=== PATIENT | male | born 1960 | race Caucasian/White ===

== ENCOUNTER 2023-12-31 10:14 | Outpatient (AMB) | payer OTHER, SELFPAY ==
--- NOTE | 2023-12-31 10:25 | A.OFFPC_ITS ---
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 Recently Hospitalized [facility] [employer] Required: No Allergies No Known Allergies Allergy (Verified 12/31/23 10:27) Medication List - Last Reconciled 12/31/23 by Cindy Akers PA-C albuterol sulfate 90 mcg/actuation (Ventolin HFA) inhalation amlodipine 5 mg PO DAILY docusate sodium 100 mg PO BID folic acid 1 mg PO DAILY nicotine 1 patch transdermal DAILY sodium chloride 0.65% (Nasal [place] (sodium chloride)) 2 sprays intranasal QID PRN tiotropium bromide (Spiriva with HandiHaler) 1 cap inhalation DAILY Tobacco use date assessed: 12/31/23 Dental Screening Dental Screen Date: 12/31/23 Did you have a dental visit in the last 12 months?: No Did you have a dental problem in the last 6 months where you did not have access to dental care?: No Was dental information given to patient?: Yes 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 His last physical was more than 15 years ago. He states that he has not had a PCP in many years and recently had to go to the hospital at the end of November due to a significant nosebleed. -He states that he was drinking heavily daily for the last 5 years. He states prior to admission in 5-10 drinks day including hard alcohol. He states that since the hospitalization he is quit drinking. He did not go into any withd migue. His last drink was over a month ago. He does not feel any cravings for this but struggles with cravings for cigarettes. Psych: See above. He does also report a mild depression that he has had for years. Does not wish to see any therapist but states that this would make him hesitant to try anything like Chantix. Denies any SI/HI. He has never been hospitalized for his mental health. ENT: He is following with ENT after he was hospitalized for a bilateral nosebleed and needed to have a rhino rocket placed and ultimately needed bilateral IMAX artery embolization. He required 6 units of blood following a significant nosebleed at the end of November. He states that the nosebleed started 4 days prior to presentation to the hospital. He initially went [facility] and then was transferred to [facility] after being unable to control the nosebleed where his hemoglobin was found to be 5.6. He was admitted to [facility] on 11/24/2023, and discharged on 12/01/2023. Generalized: has been fatigued since hospitalization but somewhat getting better. He states that he wonders if it is related to anemia. He states that if he is walking around he feels fatigued. He gets about 4 hrs of consistent sleep but then will wake up and goes back to bed. He does sometimes wake himself up from him snoring. PULM: Uses albuterol and Spiriva. While he was hospitalized he was given nebulizers and prednisone for the wheezing and rhonchi on exam. He was discharged with Spiriva and the albuterol. Currently on Nicoderm patches. He states that this was a recent diagnosis. He has never had PFTs, he is not in lung cancer screening program. He is still smoking 1/2 a pack a day. He started smoking about 50 years ago and was smoking 1.5 packs a day. He states that his brother was dx with lung cancer 2 years ago. No change in cough, wheezing. No weight loss. No hemoptysis. CV: Dx with htn in the hospital and discharged with amlodipine 5 mg. His bp is elevated today at 144/88. He is compliant and tolerant of amlodipine. He states he does get sob with exertion and states that he sometimes get chest pain with exertion. He states both of these sx get better with rest. No dizziness. Last episode of cp was 1 month ago. He has noticed this more frequently in the last couple years. Musculoskeletal: He states he has hip and low back pain x years. He states with walking his legs get weak. He states with walks he gets weakness in his upper legs going down to his feet. He states it feels like numbness and tingling in his legs. He states that when he is walking around he loses strength in the le gs. No bowel or bladder dysfunction. -His right hand has been painful and sti ff for the past year. He states the finger tips are numb. He denies any weakness. He is right hand domninant. GI: Since hospitalization he has been constipated. He has been using colace. No abdominal pain or blood in the stool. 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 Colonoscopy: Never had PSA: never had Family hx: Brother has lung cancer at age 63. Mother breast ca around age 60. [facility] Medical History (Updated 12/31/23 @ 12:29 by Cindy Akers PA-C) Mild recurrent major depression CORNEJO (dyspnea on exertion) Bilateral leg paresthesia Paresthesias in right hand Right hand pain Proximal leg weakness Lumbar pain with radiation down both legs Bilateral hip pain Alcohol use disorder, mild, in early remission, abuse RADHA (iron deficiency anemia) Recurrent epistaxis COPD (chronic obstructive pulmonary disease) Tobacco abuse Hypertension, essential, benign Surgical History (Updated 12/31/23 @ 12:04 by Susan Garcia CMA) History of ankle surgery Family History (Updated 12/31/23 @ 11:17 by Susan Garcia CMA) Mother Heart disease Father Stroke Paternal Grandfather Stroke Social History Housing: House Housing Other:: rents Patient Tobacco Use Status: Current everyday Tobacco user Years Smoked: 50 e-Cigarette/Vaping Use: Never Used Second Hand Smoke Exposure: Yes (past ) service: No Current occupational status: employed 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 1. Little interest or pleasure in doing things: not at all 2. Feeling down, depressed, or hopeless: not at all 3. Trouble falling or staying asleep, or sleeping too much: several days 4. Feeling tired or having little energy: several days 5. Poor appetite or overeating: several days 6. Feeling bad about yourself - or that you are a failure or have let yourself or your family down: several days 7. Trouble concentrating on things, such as reading the newspaper or watching television: several days 8. Moving or speaking so slowly that other people could have noticed. Or the opposite - being so fidgety or restless that you have been moving around a lot more than usual: not at all 9. Thoughts that you would be better off or of hurting yourself in some way: not at all Total score: 5 Depression Screening Interpretation: Positive Depression Screening Follow-up: Existing condition, New Medication prescribed and Follow-up Visit Requested Depression Screening Done: Yes 16935 - PHQ-9 Billing: Yes Source: Developed by Drs. Alexis Alexandra, Josefina Holt, Nolan Galicia and colleagues, with an educational vinod from [employer]. Thrive Questionnaire Date Thrive assessed: 12/31/23 I am a: Patient What is your living situation today?: I have a steady place to live Within the past 12 months, did the food you bought not last and you didn't have the money to get more?: Never true Within the past 12 months, did you worry whether your food would run out before you got money to buy more?: Never true Do you have trouble paying for medicines?: No Do you have trouble getting transportation to medical appointments?: No Do you have trouble paying your heating and electricity bill?: No Do you have trouble taking care of your child, family member or friend?: No Do you have trouble with day-to-day activities such as bathing, preparing meals, shopping, managing finances, etc.?: No Are you currently unemployed and looking for a job?: No Are you interested in more education?: No Please select the resources that you would like help with: None Currently or been in a relationship where the following occur: no concerns reported THRIVE Score: 0 AUDIT C Alcohol Use Questionnaire (AUDIT-C) 1. How often do you have a drink containing alcohol?: Monthly or less 2. How many drinks containing alcohol do you have on a typical day when you are drinking?: 1 or 2 3. How often do you have six or more drinks on one occasion?: Never Total Score: 1 Score Reviewed/Action Taken: Yes STEPHAN-7 AMB Questionnaire STEPHAN-7 Date STEPHAN - 7 assessed: 12/31/23 Feeling nervous, anxious, or on edge: 0 = Not at all Not being able to stop or control worryin = Not at all Worrying too much about different things: 0 = Not at all Trouble relaxin = Not at all Being so restless that it is hard to sit still: 0 = Not at all Becoming easily annoyed or irritable: 0 = Not at all Feeling afraid as if something awful might happen: 0 = Not at all Total STEPHAN-7 score (0-4 normal; 5-9 mild; 10-14 moderate; 15-21 severe): 0 Source: Developed by Drs. Alexis Alexandra, Josefina Holt, Nolan Galicia and colleagues, with an educational vinod from [employer]. STEPHAN-7 Assessment Billing STEPHAN-7 Assessment Tool: STEPHAN-7 Assessment 62581 Physical exam (Primary Care) Vital Signs: Last Vital Signs Temp 98.8 F 12/31/23 10:39 Pulse 96 12/31/23 10:39 Resp 18 12/31/23 10:39 BP 144/88 H 12/31/23 10:45 Pulse Ox 96 12/31/23 10:39 Oxygen Delivery Method Room Air 12/31/23 10:39 BMI result Body Mass Index 25.9 Tobacco/Smoking Status: Tobacco use Status Tobacco use date assessed 12/31/23 12/31/23 10:42 Patient Tobacco Use Status Current everyday Tobacco 12/31/23 10:42 e-Cigarette/Vaping Use Never Used 12/31/23 10:42 Are you ready to quit: Yes Tobacco cessation counseling provided: Yes Items discussed: Nicotine replacement and Other (wellbutrin and chantix) Relapse Prevention: discussed the importance of a supportive environment, discussed negative mood or depression after quitting, weight gain after smoking is common and discussed dietary, exercise and/or lifestyle changes Number of minutes spent counselin CPT code: 57657 - 4-10 Minutes PHQ-9: PHQ-9 Score PHQ-9: Total score 5 12/31/23 10:54 Depression Screening Interpretation: Positive Depression Screening Follow-up: Existing condition, New Medication prescribed and Follow-up Visit Requested Thrive Assessment: Date of Thrive Assessment Date Thrive assessed 12/31/23 12/31/23 10:51 Currently or been in a relationship where the following occur: no concerns reported Const Orientation/consciousness: patient oriented x3 HENMT Ears: hearing grossly normal bilaterally and TM's normal bilaterally General nose exam: Normal nasal mucous membranes and turbinates present Face and sinus: Yes sinuses nontender Mouth: Normal oral and palatal mucosa present Neck Thyroid: Thyroid normal Lymphatic: no lymphadenopathy noted Resp Effort & Inspection: normal respiratory effort and able to speak in complete sentences Auscultation: rhonchi throughout Cardio Rate: regular rate Rhythm: regular rhythm Heart sounds: S1 normal heart sound present and S2 normal heart sound present Peripheral pulses: Peripheral pulses 2+ throughout GI Inspection: Yes normal to inspection Palpation (GI): Soft to palpation and Other GI palpation findings present (nontender, no cva tenderness) Auscultation: normoactive bowel sounds Back/Spine/Pelvis Thoracic/Lumbar Spine: thoracic and lumbar spine normal to inspection, straight leg raise negative bilaterally and paraspinal muscle tenderness Skin General skin exam: no rashes or lesions noted Neuro General: patient oriented x3, gait normal, no focal motor deficits and CN's II- XI intact bilaterally Motor exam (neuro): 5/5 motor strength present throughout Sensory Exam: double simultaneous stimulation for sensation normal Extrem General: Yes normal to inspection and Yes full ROM Right upper extremity: full ROM, normal capillary refill and Extremity exam: right hand (Full range of motion. Nontender.) Details: normal to inspection and neurosensory exam abnormal (Reports decreased sensation to touch over the distal aspects of the right fingers. Left side WNL) Psych Thought content: Normal thought content present Insight: Good insight present (Psych) Judgement: Good judgement present (Psych) Office Procedures EKG Details: EKG today in the office is normal sinus rhythm at a rate of 82 beats per minute with nonspecific STT wave abnormalities. No significant change from [facility] EKG other than sinus rhythm is now noted. EKGs interpreted by myself. [id number], Complete Results Reviewed Results Reviewed: CBC consistent with a mild leukocytosis and persistent anemia with last H and H at 7.6 and 22.2. EKG hospital was sinus tachycardia at a rate of 100 and 10 beats per minute with nonspecific STT wave abnormalities. EKG was interpreted by Cardiology and noted to have no significant change when compared to a previous EKG in 2022. Chest x-ray: Impression: One. Minor atelectasis or scarring of the left costophrenic angle. No other evidence of acute cardiopulmonary disease including no evidence of pneumonia. 2. Calcific tendinopathy of bursitis of left shoulder. Assessment and Plan Assessment & Plan (1) Hypertension, essential, benign: Code(s): I10 - Essential (primary) hypertension Plan: Continue amlodipine. We will start metoprolol. Discussed risks and benefits an d adverse effects such as dizziness. (2) Chest pain: Code(s): R07.9 - Chest pain, unspecified Qualifiers: Chest pain type: unspecified Qualified Code(s): R07.9 - Chest pain, unspecified Plan: EKG done today in the office. EKG reviewed from hospital and chest x-ray. Stress test ordered. Warning signs of chest pain that would require emergent medical treatment were discussed. (3) RADHA (iron deficiency anemia): Code(s): D50.9 - Iron deficiency anemia, unspecified Qualifiers: Iron deficiency anemia type: unspecified iron deficiency Qualified Code(s): D50.9 - Iron deficiency anemia, unspecified Plan: We will recheck CBC and iron. (4) Recurrent epistaxis: Code(s): R04.0 - Epistaxis Plan: Has followed with ENT and no nosebleed since hospitalization. (5) COPD (chronic obstructive pulmonary disease): Code(s): J44.9 - Chronic obstructive pulmonary disease, unspecified Qualifiers: COPD type: unspecified COPD Qualified Code(s): J44.9 - Chronic obstructive pulmonary disease, unspecified Plan: We will refill Spiriva and albuterol. Chest x-ray from hospitalization reviewed. Strongly encouraged smoking cessation. PFTs ordered. (6) Tobacco abuse: Code(s): Z72.0 - Tobacco use Plan: Discussed the family history of lung cancer. Referral to thoracic surgery for low-dose chest CT screening. We will start bupropion. Discussed risks and benefits and adverse effects of this medication. One-month follow-up. Sooner if needed. (7) Mild recurrent major depression: Code(s): F33.0 - Major depressive disorder, recurrent, mild Plan: see above (8) Alcohol use disorder, mild, in early remission, abuse: Code(s): F10.11 - Alcohol abuse, in remission Plan: Congratulated on sobriety. Labs ordered. Does not need help with this per patient. (9) Bilateral hip pain: Code(s): M25.551 - Pain in right hip; M25.552 - Pain in left hip Plan: X-ray ordered (10) Lumbar pain with radiation down both legs: Code(s): M54.50 - Low back pain, unspecified; M79.604 - Pain in right leg; M79.605 - Pain in left leg Plan: X-ray and arthritis labs ordered. (11) Proximal leg weakness: Code(s): R29.898 - Other symptoms and signs involving the musculoskeletal system Plan: Strength and sensation intact today on exam. Imaging of the back ordered. Labs ordered. (12) Right hand pain: Code(s): M79.641 - Pain in right hand Plan: Full range of motion and no tenderness today on exam. X-ray ordered. (13) Paresthesias in right hand: Code(s): R20.2 - Paresthesia of skin Plan: Reduced sensation on exam. Labs ordered. We will follow up pending test results and at follow up discuss possibility of EMG. We discussed this today but he wants to hold off on this. (14) Bilateral leg paresthesia: Code(s): R20.2 - Paresthesia of skin Plan: See above. (15) CORNEJO (dyspnea on exertion): Code(s): R06.09 - Other forms of dyspnea Plan: See above. (16) Hospital discharge follow-up: Code(s): Z09 - Encounter for follow-up examination after completed treatment for conditions other than malignant neoplasm Plan: Medications reconciled. Labs and imaging from hospitalization reviewed. The 156 pages of documentation from [facility] was reviewed today. Plan Follow up in 1 month. Sooner if needed. PSA ordered in addition to the other labs. Referral to GI for a colonoscopy was placed. Patient understands and agrees with this plan. Orders: Orders AMB EKG-In Office Today I10 - Essential (primary) hypertension, R07.9 - Chest pain, unspecified Complete Blood Count Auto Diff Today D50.9 - Iron deficiency anemia, unspecified, F10.11 - Alcohol abuse, in remission, I10 - Essential (primary) hypertension, J44.9 - Chronic obstructive pulmonary disease, unspecified, R06.09 - Other forms of dyspnea, R20.2 - Paresthesia of skin, R29.898 - Other symptoms and signs involving the musculoskeletal system, Z72.0 - Tobacco use Comprehensive [place]. Panel Fast Today D50.9 - Iron deficiency anemia, unspecified, F10.11 - Alcohol abuse, in remission, I10 - Essential (primary) hypertension, J44.9 - Chronic obstructive pulmonary disease, unspecified, R06.09 - Other forms of dyspnea, R20.2 - Paresthesia of skin, R29.898 - Other symptoms and signs involving the musculoskeletal system, Z72.0 - Tobacco use Ferritin Today D50.9 - Iron deficiency anemia, unspecified, F10.11 - Alcohol abuse, in remission, I10 - Essential (primary) hypertension, J44.9 - Chronic obstructive pulmonary disease, unspecified, R06.09 - Other forms of dyspnea, R20.2 - Paresthesia of skin, R29.898 - Other symptoms and signs involving the musculoskeletal system, Z72.0 - Tobacco use Lipid Panel Today D50.9 - Iron deficiency anemia, unspecified, F10.11 - Alcohol abuse, in remission, I10 - Essential (primary) hypertension, J44.9 - Chronic obstructive pulmonary disease, unspecified, R06.09 - Other forms of dyspnea, R20.2 - Paresthesia of skin, R29.898 - Other symptoms and signs involving the musculoskeletal system, Z72.0 - Tobacco use TSH reflex Free T4 Today D50.9 - Iron deficiency anemia, unspecified, F10.11 - Alcohol abuse, in remission, I10 - Essential (primary) hypertension, J44.9 - Chronic obstructive pulmonary disease, unspecified, R06.09 - Other forms of dyspnea, R20.2 - Paresthesia of skin, R29.898 - Other symptoms and signs involving the musculoskeletal system, Z72.0 - Tobacco use Vitamin D 1,25 dihydroxy Today D50.9 - Iron deficiency anemia, unspecified, F10.11 - Alcohol abuse, in remission, I10 - Essential (primary) hypertension, J44.9 - Chronic obstructive pulmonary disease, unspecified, R06.09 - Other forms of dyspnea, R20.2 - Paresthesia of skin, R29.898 - Other symptoms and signs involving the musculoskeletal system, Z72.0 - Tobacco use UA CC w/rflx Micro + Cult Today D50.9 - Iron deficiency anemia, unspecified, F10.11 - Alcohol abuse, in remission, I10 - Essential (primary) hypertension, J44.9 - Chronic obstructive pulmonary disease, unspecified, R06.09 - Other forms of dyspnea, R20.2 - Paresthesia of skin, R29.898 - Other symptoms and signs involving the musculoskeletal system, Z72.0 - Tobacco use Rheumatoid Factor Today D50.9 - Iron deficiency anemia, unspecified, F10.11 - Alcohol abuse, in remission, I10 - Essential (primary) hypertension, J44.9 - Chronic obstructive pulmonary disease, unspecified, R06.09 - Other forms of dyspnea, R20.2 - Paresthesia of skin, R29.898 - Other symptoms and signs involving the musculoskeletal system, Z72.0 - Tobacco use XR hand RT min 3V Today D50.9 - Iron deficiency anemia, unspecified, F10.11 - Alcohol abuse, in remission, I10 - Essential (primary) hypertension, J44.9 - Chronic obstructive pulmonary disease, unspecified, M79.641 - Pain in right hand, R06.09 - Other forms of dyspnea, R20.2 - Paresthesia of skin, R29.898 - Other symptoms and signs involving the musculoskeletal system, Z72.0 - Tobacco use XR hips JONO min 3V Today D50.9 - Iron deficiency anemia, unspecified, F10.11 - Alcohol abuse, in remission, I10 - Essential (primary) hypertension, J44.9 - Chronic obstructive pulmonary disease, unspecified, M25.551 - Pain in right hip, M25.552 - Pain in left hip, R06.09 - Other forms of dyspnea, R20.2 - Paresthesia of skin, R29.898 - Other symptoms and signs involving the musculoskeletal system, Z72.0 - Tobacco use XR lumbar spine 2-3V Today D50.9 - Iron deficiency anemia, unspecified, F10.11 - Alcohol abuse, in remission, I10 - Essential (primary) hypertension, J44.9 - Chronic obstructive pulmonary disease, unspecified, M54.50 - Low back pain, unspecified, M79.604 - Pain in right leg, M79.605 - Pain in left leg, R06.09 - Other forms of dyspnea, R20.2 - Paresthesia of skin, R29.898 - Other symptoms and signs involving the musculoskeletal system, Z72.0 - Tobacco use PSA, Ultra Sensitive Today D50.9 - Iron deficiency anemia, unspecified, F10.11 - Alcohol abuse, in remission, I10 - Essential (primary) hypertension, J44.9 - Chronic obstructive pulmonary disease, unspecified, R06.09 - Other forms of dyspnea, R20.2 - Paresthesia of skin, R29.898 - Other symptoms and signs involving the musculoskeletal system, Z72.0 - Tobacco use PFT pulmonary function test Today IRON PROFILE Today D50.9 - Iron deficiency anemia, unspecified, F10.11 - Alcohol abuse, in remission, I10 - Essential (primary) hypertension, J44.9 - Chronic obstructive pulmonary disease, unspecified, R06.09 - Other forms of dyspnea, R20.2 - Paresthesia of skin, R29.898 - Other symptoms and signs involving the musculoskeletal system, Z72.0 - Tobacco use Vitamin B12 and Folate Today D50.9 - Iron deficiency anemia, unspecified, F10. 11 - Alcohol abuse, in remission, I10 - Essential (primary) hypertension, J44.9 - Chronic obstructive pulmonary disease, unspecified, R06.09 - Other forms of dyspnea, R20.2 - Paresthesia of skin, R29.898 - Other symptoms and signs involving the musculoskeletal system, Z72.0 - Tobacco use CA stress test Today D50.9 - Iron deficiency anemia, unspecified, F10.11 - Alcohol abuse, in remission, I10 - Essential (primary) hypertension, J44.9 - Chronic obstructive pulmonary disease, unspecified, R06.09 - Other forms of dyspnea, R07.9 - Chest pain, unspecified, R20.2 - Paresthesia of skin, R29.898 - Other symptoms and signs involving the musculoskeletal system, Z72.0 - Tobacco use Uric Acid Today D50.9 - Iron deficiency anemia, unspecified, F10.11 - Alcohol abuse, in remission, I10 - Essential (primary) hypertension, J44.9 - Chronic obstructive pulmonary disease, unspecified, R06.09 - Other forms of dyspnea, R20.2 - Paresthesia of skin, R29.898 - Other symptoms and signs involving the musculoskeletal system, Z72.0 - Tobacco use C Reactive Protein Today D50.9 - Iron deficiency anemia, unspecified, F10.11 - Alcohol abuse, in remission, I10 - Essential (primary) hypertension, J44.9 - Chronic obstructive pulmonary disease, unspecified, R06.09 - Other forms of dyspnea, R20.2 - Paresthesia of skin, R29.898 - Other symptoms and signs involving the musculoskeletal system, Z72.0 - Tobacco use Erythrocyte Sedimentation Rate Today D50.9 - Iron deficiency anemia, unspecified, F10.11 - Alcohol abuse, in remission, I10 - Essential (primary) hypertension, J44.9 - Chronic obstructive pulmonary disease, unspecified, R06.09 - Other forms of dyspnea, R20.2 - Paresthesia of skin, R29.898 - Other symptoms and signs involving the musculoskeletal system, Z72.0 - Tobacco use ANDERS Reflex Titer and Pattern Today D50.9 - Iron deficiency anemia, unspecified, F10.11 - Alcohol abuse, in remission, I10 - Essential (primary) hypertension, J44.9 - Chronic obstructive pulmonary disease, unspecified, R06.09 - Other forms of dyspnea, R20.2 - Paresthesia of skin, R29.898 - Other symptoms and signs involving the musculoskeletal system, Z72.0 - Tobacco use Lyme IgG/IgM w/reflex to WB Today D50.9 - Iron deficiency anemia, unspecified, F10.11 - Alcohol abuse, in remission, I10 - Essential (primary) hypertension, J44.9 - Chronic obstructive pulmonary disease, unspecified, R06.09 - Other forms of dyspnea, R20.2 - Paresthesia of skin, R29.898 - Other symptoms and signs involving the musculoskeletal system, Z72.0 - Tobacco use RT home sleep study Today R06.83 - Snoring, R53.83 - Other fatigue Referrals Gastroenterology Referral D50.9 - Iron deficiency anemia, unspecified, F10.11 - Alcohol abuse, in remission, I10 - Essential (primary) hypertension, J44.9 - Chronic obstructive pulmonary disease, unspecified, R06.09 - Other forms of dyspnea, R20.2 - Paresthesia of skin, R29.898 - Other symptoms and signs involving the musculoskeletal system, Z12.11 - Encounter for screening for malignant neoplasm of colon, Z72.0 - Tobacco use Thoracic Surgery Referral D50.9 - Iron deficiency anemia, unspecified, I10 - Essential (primary) hypertension, J44.9 - Chronic obstructive pulmonary disease, unspecified, R06.09 - Other forms of dyspnea, Z72.0 - Tobacco use Medications: New tiotropium bromide (Spiriva with HandiHaler) 1 cap inhalation DAILY 90 inhalations 3RF metoprolol succinate ER 25 mg PO DAILY 90 tabs 0RF bupropion HCl administer 6 hours apart 75 mg PO BID 60 tabs 2RF amlodipine 5 mg PO DAILY 90 tabs 3RF folic acid 1 mg PO DAILY 90 tabs 3RF Coding Level of Care Code New Pt Level 5 (10165) Complex EM visit Add On G2211 Diagnoses Hypertension, essential, benign I10 Chest pain, unspecified type R07.9 Chest pain type: unspecified Iron deficiency anemia, unspecified iron deficiency anemia type D50.9 Iron deficiency anemia type: unspecified iron deficiency Recurrent epistaxis R04.0 Chronic obstructive pulmonary disease, unspecified COPD type J44.9 COPD type: unspecified COPD Tobacco abuse Z72.0 Mild recurrent major depression F33.0 Alcohol use disorder, mild, in early remission, abuse F10.11 Bilateral hip pain M25.551; M25.552 Lumbar pain with radiation down both legs M54.50; M79.604; M79.605 Proximal leg weakness R29.898 Right hand pain M79.641 Paresthesias in right hand R20.2 Bilateral leg paresthesia R20.2 CORNEJO (dyspnea on exertion) R06.09 Hospital discharge follow-up Z09 CPT Codes EKG - CPT: 00684-[id number], Complete ([id number]) Additional Codes STEPHAN-7 Assessment Billing - STEPHAN-7 Assessment Tool: STEPHAN-7 Assessment [id number] ([id number]) Vital Signs *Quality* - CPT code: 98336 - 4-10 Minutes ([id number])
[2023-12-31 10:39] VITALS: BP 158/78; PULSE 96; RESP 18; TEMP 37.1; O2SAT 96; BMI 25.9
[2023-12-31 10:45] VITALS: BP 144/88
== END 2023-12-31 12:34 | disposition home or self-care (01) ==
PROVIDERS: PCP Family Medicine; Visit Provider Physician Assistant
DX: R07.9 Chest pain, unspecified (principal); F17.210 Nicotine dependence, cigarettes, uncomplicated
CPT/HCPCS: 93000; 99204; 99406; G2211

== ENCOUNTER 2024-01-04 10:09 | Outpatient (REF) | payer OTHER, SELFPAY ==
--- NOTE | ~2024-01-04 | XR_ITS ---
EXAMINATION: XR BILATERAL HIPS CLINICAL INFORMATION: Pain in right hip COMPARISON: None available. TECHNIQUE: AP and frog leg lateral views of each hip were obtained. FINDINGS: No fracture. Hip joint spaces are maintained. Alignment is anatomic. There are several calcific densities adjacent to the right greater trochanter which can be seen with gluteal tendinosis. Calcification of the arterial veins is noted consistent with atherosclerotic disease. XR/XR hips JONO min 3V IMPRESSION: No bony abnormality.
--- NOTE | ~2024-01-04 | XR_ITS ---
EXAMINATION: XR HAND, RIGHT CLINICAL INFORMATION: Pain in right hand COMPARISON: None available. TECHNIQUE: PA, lateral, and oblique views of the right hand. FINDINGS: The bones are intact. No fracture. Alignment is anatomic. No significant joint space narrowing. No erosions or soft tissue calcifications. XR/XR hand RT min 3V IMPRESSION: No significant bony abnormality.
--- NOTE | ~2024-01-04 | XR_ITS ---
EXAMINATION: XR LUMBOSACRAL SPINE CLINICAL INFORMATION: Low back pain, unspecified COMPARISON: None available. TECHNIQUE: Three views of the lumbosacral spine. FINDINGS: There 5 nonrib-bearing lumbar-type vertebral bodies. The height of vertebral bodies is well-maintained. There is slight curve of the lumbar spine, convex left. There is marked disc space narrowing L3-L4 and L5-S1. There there is moderate to marked disc space narrowing at L2-L3 and L4-L5. Anterior marginal osteophytes at all lumbar levels. There is straightening of the usual lumbar lordosis which can be seen with muscle spasm. There is mild retrolisthesis of L2 with respect to L3. There is multilevel degenerative facet joint disease, most pronounced at L5-S1. XR/XR lumbar spine 2-3V IMPRESSION: 1. Muscle spasm. 2. Multilevel degenerative disc disease and degenerative facet joint disease. 3. Mild retrolisthesis of L2 with respect to L3.
[2024-01-04 10:26] LABS: MANUAL DIFF FLAG NO
[2024-01-04 10:42] LABS: Basophils Absolute Auto 0.1 X10*3/uL (0.0-0.2); Basophils Percent Auto 0.5 % (0-2); Eosinophils Absolute Auto 0.4 X10*3/uL (0.0-0.4); Eosinophils Percent Auto 3.6 % (0-4); Hematocrit 35.3 % (42.0-52.0); Hemoglobin 11.8 g/dl (14.0-18.0); Imm Gran Abs Auto 0.04 X10*3/uL (0.00-0.03); Imm Gran Pct Auto 0.4 % (0.0-0.4); Lymphocytes Percent Auto 18.7 % (20-40); Mean Corpuscular HGB Conc 33.4 g/dl (31.0-36.0); Mean Corpuscular Volume 98.6 fL (80.0-98.0); Mean Platelet Volume 9.7 fL (9.4-12.4); Monocytes Absolute Auto 0.9 X10*3/uL (0.1-1.2); Monocytes Percent Auto 8.9 % (2-11); Neutrophils Absolute Auto 7.1 x10*3/uL (2.0-8.3); Neutrophils Percent Auto 67.9 % (45-73); Platelet Count 302 X10*3/uL (160-400); Red Blood Count 3.58 X10*6/uL (4.60-5.80); Red Cell Distribution Width 14.9 % (11.0-16.0); White Blood Count 10.5 X10*3/uL (4.8-10.8)
[2024-01-04 11:19] LABS: Erythrocyte Sedimentation Rate 14 MM/HR (0-15)
[2024-01-04 11:24] LABS: Rheumatoid Factor < 13.0 IU/mL (<15.0)
[2024-01-04 11:29] LABS: Alanine Aminotransferase 13 U/L (0-40); Albumin Level 4.1 g/dL (3.5-5.0); Alkaline Phosphatase 84 U/L (39-117); Anion Gap 13 (12-20); Aspartate Amino Transferase 16 U/L (5-37); Bilirubin Total 0.3 mg/dL (0.0-1.0); Blood Urea Nitrogen 19 mg/dL (9-16); C Reactive Protein 0.11 mg/dL (< or = 0.50); Calcium 9.8 mg/dL (8.4-10.2); Carbon Dioxide 27 mmol/L (22-29); Chloride 100 mmol/L (96-108); Cholesterol 220 mg/dL (<200); Estimated Glomerular Filt Rate > 60; Glucose Fasting 102 mg/dL (60-99); HDL Cholesterol 86 mg/dL (>40); Iron 50 mcg/dL (45-160); LDL Cholesterol Calculated 107 mg/dL (<100); Percent Iron Saturation 14 % (15-50); Sodium 136 mmol/L (135-145); Total Iron Binding Capacity 354 mcg/dL (228-428); Total Protein 6.9 g/dL (6.5-8.0); Triglycerides 137 mg/dL (<150); Unsaturated Iron Binding 304 ug/dL; Uric Acid 5.3 mg/dL (3.4-7.0)
[2024-01-04 11:47] LABS: Ferritin 49 ng/mL (20-250)
[2024-01-04 11:54] LABS: Folate 19.1 ng/mL (> or = 4.0); Vitamin B12 929 pg/mL (200-900)
[2024-01-04 13:56] LABS: Appearance Urine Clear; Color Urine Yellow; Glucose Urine UA Negative (Negative); Leukocyte Esterase Urine Negative (Negative); Nitrite Urine Negative (Negative); Specific Gravity - Urine <= 1.005 (1.005-1.025); Urine Blood Negative (Negative); Urine Ketones Negative (Negative); Urine Protein Negative (Neg-Trace)
[2024-01-07 14:28] LABS: Anti Nuclear Antibody Pattern Nuclear, Homogeneous; Anti Nuclear Antibody Screen POSITIVE (NEGATIVE); Anti Nuclear Antibody Titer 1:40 titer
[2024-01-07 17:38] LABS: Lyme Abs Screen <0.90 index
[2024-01-08 22:13] LABS: PSA, Ultra Sensitive 0.75 ng/mL
[2024-01-09 14:19] LABS: VITAMIN D (1,25 OH) D3 37 pg/mL; Vit D (1,25-Dihydroxy) Total 37 pg/mL (18-72); Vitamin D (1,25 OH) D2 <8 pg/mL
== END 2024-01-04 10:10 | disposition home or self-care (01) ==
LOC: HO.LAB 10:09
PROVIDERS: PCP Family Medicine; Visit Provider Physician Assistant
DX: R06.09 Other forms of dyspnea (principal); R20.2 Paresthesia of skin; R29.898 Other symptoms and signs involving the musculoskeletal system; F10.11 Alcohol abuse, in remission; D50.9 Iron deficiency anemia, unspecified; J44.9 Chronic obstructive pulmonary disease, unspecified; Z72.0 Tobacco use; I10 Essential (primary) hypertension; M79.641 Pain in right hand; M54.50 Low back pain, unspecified; M79.604 Pain in right leg; M79.605 Pain in left leg; M25.551 Pain in right hip; M25.552 Pain in left hip
CPT/HCPCS: 36415; 72100; 73130; 73522; 80053; 80061; 81003; 82607; 82652; 82728; 82746; 83540; 84153; 84443; 84550; 85025; 85652; 86038; 86039; 86140; 86431; 86617; 86618

== ENCOUNTER → 2024-01-11 08:51 | Outpatient (REF) | payer OTHER, SELFPAY ==
--- NOTE | 2024-01-11 08:54 | CA_ITS ---
Acquisition Time: 2024-01-11 09:09:13 Total Exercise Time: 00:06:12 Test Indications: Dyspnea Medications: AMLODIPINE ALBUTEROL SPIRIVA METOPROLOL Protocol: HARLEEN Max HR: 130 BPM 82% of Pred: 157 BPM Max BP: 148/076 mmHG Max Work Load: 7.2 METS Exercise stress test exercise 6 in 12 sec of Harleen protocol achieivng 83% MPHR, with mild to moderate SOB, no chest pains, with normotensive response to exercise, with borderline suboptimal heart rate without EJG chnages at achieved workload. Test reviewed with Dr. Alberto If further testing is required pharmacological stress test would be reccomended. Referred By: Cindy Akers Overread By: Shanice Hawkins
== END ==
LOC: HO.CARD 08:51
PROVIDERS: PCP Family Medicine; Visit Provider Physician Assistant
DX: R07.9 Chest pain, unspecified (principal); R06.09 Other forms of dyspnea; I10 Essential (primary) hypertension; R20.2 Paresthesia of skin; Z72.0 Tobacco use
CPT/HCPCS: 93017

== ENCOUNTER → 2024-01-11 08:54 | Outpatient (BNV) | payer OTHER, SELFPAY | PROVIDERS: PCP Family Medicine; Visit Provider Nurse Practitioner | DX: R06.02 Shortness of breath (principal) | CPT/HCPCS: 93016; 93018 ==

== ENCOUNTER 2024-01-11 14:17 | Outpatient (AMB) | payer OTHER, SELFPAY ==
--- NOTE | 2024-01-11 14:34 | MHC.PC.OV ---
Vital Signs 01/11/24 14:35 Height 5 ft 6 in Weight 160 lb 6 oz BMI 25.9 BP 134/89 Blood Pressure Location Lt brachial Position Sitting Pulse 75 Pulse Source Pulse Oximeter Pulse Oximetry (%) 96 Oxygen Delivery Method Room Air Intake Visit Reasons: worsening leg weakness Intake Note: Patient is here with worsening leg weakness he states it's been getting more frequent. Allergies No Known Allergies Allergy (Verified 01/11/24 14:40) Tobacco use date assessed: 01/11/24 Dental Screening Dental Screen Date: 01/11/24 Did you have a dental visit in the last 12 months?: Yes Did you have a dental problem in the last 6 months where you did not have access to dental care?: No Was dental information given to patient?: Patient has dentist HPI worsening leg weakness HPI Details Patient?presents?with?worsening?lower?extremity?weakness. X-rays?show?significant?degenerative?disc?disease?and?retrolisthesis Lab?work?is?rather?unremarkable?regarding?his?symptoms. Has?low?back?pain?and?hip?pain?which?radiates?down?legs?bilaterally. Also?has?right?hand?pain?with?some?right?hand?swelling.??No?left?hand?swelling. 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 X-ray?of?his?hand?did?not?show?any?bony?abnormality?or?joint?space?problems. [facility] Medical History (Updated 01/11/24 @ 15:28 by Cuba Bell MD) Positive ANDERS (antinuclear antibody) Polyarthralgia Mild recurrent major depression CORNEJO (dyspnea on exertion) Bilateral leg paresthesia Paresthesias in right hand Right hand pain Proximal leg weakness Lumbar pain with radiation down both legs Bilateral hip pain Alcohol use disorder, mild, in early remission, abuse RADHA (iron deficiency anemia) Recurrent epistaxis COPD (chronic obstructive pulmonary disease) Tobacco abuse Hypertension, essential, benign Surgical History (Updated 12/31/23 @ 12:04 by Susan Garcia CMA) History of ankle surgery Family History (Updated 12/31/23 @ 11:17 by Susan Garcia CMA) Mother Heart disease Father Stroke Paternal Grandfather Stroke Social History Housing: House Housing Other:: rents Patient Tobacco Use Status: Current everyday Tobacco user Cigarettes Per Day: 12 Years Smoked: 50 e-Cigarette/Vaping Use: Never Used Second Hand Smoke Exposure: Yes (past ) service: No Current occupational status: employed 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 Alexis Alexandra, Josefina Holt, Nolan Galicia and colleagues, with an educational vinod from [employer]. Review of Systems Const Denies chills, Denies fatigue, Denies fever(s), Denies headache(s) and Denies weakness ENT Denies dizziness and Denies headache(s) Card Denies chest pain, Denies lightheadedness, Denies dyspnea and Denies other (Palpitations) Resp Denies cough, Denies dyspnea, Denies wheezing and Denies other ( shortness of breath) Musc Details: Low?back?pain?radiating?to?hips?and?down?legs. Right?hand?and?forearm?pain Denies numbness and Denies tingling Neuro Denies dizziness, Denies headache(s), Denies numbness, Denies tingling, Denies paresthesias and Denies weakness Psych Denies anxiety and Denies depression Endo Denies fatigue Aller/Immun Denies wheezing Physical exam (Primary Care) Vital Signs: Last Vital Signs Pulse 75 01/11/24 14:35 BP 134/89 01/11/24 14:35 Pulse Ox 96 01/11/24 14:35 Oxygen Delivery Method Room Air 01/11/24 14:35 BMI result Body Mass Index 25.9 Tobacco/Smoking Status: Tobacco use Status Tobacco use date assessed 01/11/24 01/11/24 14:42 Patient Tobacco Use Status Current everyday Tobacco 01/11/24 14:42 e-Cigarette/Vaping Use Never Used 01/11/24 14:42 Thrive Assessment: Date of Thrive Assessment Date Thrive assessed 12/31/23 01/11/24 14:42 Const General: no acute distress and well developed Nutritional Appearance: well nourished Orientation/consciousness: patient oriented x3 HENMT Head: Yes normocephalic and Yes atraumatic Eyes General: appearance normal, both eyes and all related structures Pupils: Equal, round and reactive pupils present EOM: EOMs intact bilaterally Resp Effort & Inspection: normal respiratory effort Auscultation: clear to auscultation bilaterally Cardio Rate: regular rate Rhythm: regular rhythm Heart sounds: S1 normal heart sound present, S2 normal heart sound present, no gallops, no murmurs and no rubs Back/Spine/Pelvis Other: Pain?at?low?back?radiating?into?hips?and?legs?with?range?of?motion Neuro General: patient oriented x3 and gait normal Cranial nerves: Yes Equal, round and reactive pupils present Extrem Other: Right?hand?swelling?and?pain?with?range?of?motion. Psych Affect: normal affect Assessment and Plan Assessment & Plan (1) Right hand pain: Code(s): M79.641 - Pain in right hand Plan: Right?hand?pain?without?significant?bony?abnormalities?on?x-ray. Likely?tendinopathy Use?wrist?brace?when?working Ice/heat Can?use?NSAIDs?sparingly-had?significant?epistaxis?x1?episode?over?a?month?ago. (2) Lumbar radiculopathy: Code(s): M54.16 - Radiculopathy, lumbar region Plan: Lumbar?back?pain?with?radiation?into?hips?and?legs X-ray?shows?degenerative?disc?abnormalities?and?retrolisthesis. Trial?physical?therapy May?need?MRI?and?referral; already?has?an?appointment?with?Neurology?in?a?few?months.??Would?push?for?sooner?appointment?if?needed. (3) Lumbar pain with radiation down both legs: Code(s): M54.50 - Low back pain, unspecified; M79.604 - Pain in right leg; M79.605 - Pain in left leg Plan: As?above (4) Mild anemia: Code(s): D64.9 - Anemia, unspecified Plan: X-ray?shows?mild?anemia.??Patient?had?had?significant?epistaxis?episode?x1. This?should?resolve?spontaneously Patient?also?used?to?be?heavy?drinker?but?had?stopped.??Now?has?had?a?few?drinks?sporadically.??Encouraged?further?abstinence We?can?follow-up?on?anemia?at?a?subsequent?visit Orders: Orders PT Evaluation and Treatment Today M54.50 - Low back pain, unspecified, M79.604 - Pain in right leg, M79.605 - Pain in left leg, R29.898 - Other symptoms and signs involving the musculoskeletal system Coding Level of Care Code Est Pt Level 4 (45327) Diagnoses Right hand pain M79.641 Lumbar radiculopathy M54.16 Lumbar pain with radiation down both legs M54.50; M79.604; M79.605 Mild anemia D64.9
[2024-01-11 14:35] VITALS: BP 134/89; PULSE 75; O2SAT 96; BMI 25.9
== END 2024-01-11 15:21 | disposition home or self-care (01) ==
PROVIDERS: PCP Family Medicine; Visit Provider Family Medicine
DX: M79.641 Pain in right hand (principal); M54.16 Radiculopathy, lumbar region; M54.50 Low back pain, unspecified; M79.604 Pain in right leg; M79.605 Pain in left leg; D64.9 Anemia, unspecified
CPT/HCPCS: 99214

== ENCOUNTER 2024-02-06 08:13 | Outpatient (AMB) | payer OTHER, SELFPAY ==
--- NOTE | 2024-02-06 08:18 | MHC.PC.OV ---
Vital Signs 02/06/24 08:24 02/06/24 08:29 Height 5 ft 6 in Weight 160 lb 8 oz BMI 25.9 BP 146/82 H 132/80 Blood Pressure Location Lt brachial Rt brachial Position Sitting Sitting Respiration 14 Pulse 82 Pulse Source Pulse Oximeter Temp 98.5 F Temp Source Temporal Artery Scan Pulse Oximetry (%) 99 Oxygen Delivery Method Room Air Intake Visit Reasons: 1 MTH Follow up Intake Note: One month follow up. Was supposed to see PT but noone reached out to him. Allergies No Known Allergies Allergy (Verified 02/06/24 08:20) Medication List - Last Reconciled 02/06/24 by Cindy Akers PA-C albuterol sulfate 90 mcg/actuation (Ventolin HFA) inhalation amlodipine 5 mg PO DAILY docusate sodium 100 mg PO BID folic acid 1 mg PO DAILY metoprolol succinate ER 25 mg PO DAILY nicotine 1 patch transdermal DAILY sodium chloride 0.65% (Nasal Fortson (sodium chloride)) 2 sprays intranasal QID PRN tiotropium bromide (Spiriva with HandiHaler) 1 cap inhalation DAILY Tobacco use date assessed: 01/11/24 Dental Screening Dental Screen Date: 01/11/24 HPI 1 MTH Follow up HPI Details Patient is a 64-year-old male who presents today for a follow up. He is relatively new here and since seeing me about a month ago he has seen his PCP for his ongoing arthralgias. He has also been worked up for his joint pains and referred to physical therapy. CV: Blood pressure today in the office is elevated at 146/82. He states his blood pressures are similar at home. He is compliant with the amlodipine 5 mg and metoprolol 25 mg daily. He had a negative stress test. Pulm: PFTs were ordered, not booked. Sleep study also not booked yet. He has been referred to thoracic surgery for ldct screening. He is seeing sleep medicine in the fall for sleep study. Heme-Onc: Had a mild anemia and his PCP plans to repeat this and monitor it. He had significant epistaxis which required hospitalization about a month ago. Iron is normal. He has not on any supplement for this. He quit drinking around that time as well. Rheum: He has not started pt. Would like to go to [facility] in [place]. Has an appointment March 17 with rheumatology. GI: seeing them March 07. Psych: Feeling a little bit better with the Wellbutrin and has cut back on some of his smoking dependency however, he forgets often to take the afternoon dose. Denies any SI/HI. [facility] Medical History (Updated 01/11/24 @ 15:28 by Cuba Bell MD) Positive ANDERS (antinuclear antibody) Polyarthralgia Mild recurrent major depression CORNEJO (dyspnea on exertion) Bilateral leg paresthesia Paresthesias in right hand Right hand pain Proximal leg weakness Lumbar pain with radiation down both legs Bilateral hip pain Alcohol use disorder, mild, in early remission, abuse RADHA (iron deficiency anemia) Recurrent epistaxis COPD (chronic obstructive pulmonary disease) Tobacco abuse Hypertension, essential, benign Surgical History History of ankle surgery Family History (Updated 02/06/24 @ 08:20 by Susan Garcia CMA) Mother Heart disease Father Stroke Deep vein thrombosis Paternal Grandfather Stroke Social History Housing: House Housing Other:: rents Patient Tobacco Use Status: Current everyday Tobacco user Cigarettes Per Day: 12 Years Smoked: 50 e-Cigarette/Vaping Use: Never Used Second Hand Smoke Exposure: Yes (past ) service: No Current occupational status: employed 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 Alexis Alexandra, Josefina Holt, Nolan Galicia and colleagues, with an educational vinod from [employer]. Physical exam (Primary Care) Vital Signs: Last Vital Signs Temp 98.5 F 02/06/24 08:24 Pulse 82 02/06/24 08:24 Resp 14 02/06/24 08:24 BP 146/82 H 02/06/24 08:24 Pulse Ox 99 02/06/24 08:24 Oxygen Delivery Method Room Air 02/06/24 08:24 BMI result Body Mass Index 25.9 Tobacco/Smoking Status: Tobacco use Status Tobacco use date assessed 01/11/24 02/06/24 08:20 Patient Tobacco Use Status Current everyday Tobacco 06/05/24 08:20 e-Cigarette/Vaping Use Never Used 02/06/24 08:20 Thrive Assessment: Date of Thrive Assessment Date Thrive assessed 12/31/23 02/06/24 08:20 Const Orientation/consciousness: patient oriented x3 HENMT Ears: hearing grossly normal bilaterally Neck Thyroid: Thyroid normal Lymphatic: no lymphadenopathy noted Resp Auscultation: clear to auscultation bilaterally Cardio Rate: regular rate Rhythm: regular rhythm Heart sounds: S1 normal heart sound present and S2 normal heart sound present GI Inspection: Yes normal to inspection Palpation (GI): Soft to palpation and Other GI palpation findings present (nontender, no cva tenderness) Auscultation: normoactive bowel sounds Rectal Exam - Male: Yes deferred Skin General skin exam: no rashes or lesions noted Neuro General: patient oriented x3, gait normal and no focal motor deficits Results Reviewed Results Reviewed: Laboratory Tests 01/04/24 10:24 WBC 10.5 RBC 3.58 L Hgb 11.8 L Hct 35.3 L Plt Count 302 Sodium 136 Potassium 4.0 Chloride 100 Creatinine 0.82 Estimated GFR > 60 Fasting Glucose 102 H Uric Acid 5.3 Calcium 9.8 Iron 50 TIBC 354 % Saturation 14 L Unsat Iron Binding 304 Ferritin 49 Total Bilirubin 0.3 AST 16 ALT 13 Alkaline Phosphatase 84 C-Reactive Protein 0.11 Total Protein 6.9 Albumin 4.1 Triglycerides 137 Cholesterol 220 H LDL Cholesterol, Calc 107 H HDL Cholesterol 86 PSA Ultra-Sensitive 0.75 Vitamin B12 929 H 1,25 Dihydroxy Vit D 37 TSH 0.70 Rheumatoid Factor < 13.0 ANDERS Screen POSITIVE A ANDERS Titer 1:40 H ANDERS Pattern Nuclear, Homogeneous A Lyme Screen IgG & IgM <0.90 XR/XR lumbar spine 2-3V IMPRESSION: 1. Muscle spasm. 2. Multilevel degenerative disc disease and degenerative facet joint disease. 3. Mild retrolisthesis of L2 with respect to L3. XR/XR hips JONO min 3V IMPRESSION: No bony abnormality. XR/XR hand RT min 3V IMPRESSION: No significant bony abnormality. Exercise stress test exercise 6 in 12 sec of Shabbir protocol achieivng 83% MPHR, with mild to moderate SOB, no chest pains, with normotensive response to exercise, with borderline suboptimal heart rate without EJG chnages at achieved workload. Test reviewed with Dr. Alberto If further testing is required pharmacological stress test would be reccomended. Assessment and Plan Assessment & Plan (1) Hypertension, essential, benign: Code(s): I10 - Essential (primary) hypertension Plan: We will start lisinopril. Discussed risks and benefits and adverse effects of this medication. We will check BMP in 2-3 weeks. Advised to follow up with PCP in 4 weeks to have blood pressure rechecked. Monitor at home. (2) Polyarthralgia: Code(s): M25.50 - Pain in unspecified joint Plan: Unchanged. Has an appointment with Rheumatology. Has not yet started PT. We will fax referral today. (3) IFG (impaired fasting glucose): Code(s): R73.01 - Impaired fasting glucose Plan: a1c ordered (4) Mild recurrent major depression: Code(s): F33.0 - Major depressive disorder, recurrent, mild Plan: will try Wellbutrin 150 mg XR (5) Tobacco abuse: Code(s): Z72.0 - Tobacco use Plan: Has cut back significantly. Does not use the patch as much as he should. He states that he will try to do this more and is going to try to make more of a conscious effort to quit. Orders: Orders Basic Metabolic Panel 2 Weeks I10 - Essential (primary) hypertension Medications: New lisinopril 10 mg PO DAILY 90 tabs 0RF bupropion HCl XL (Wellbutrin XL) 150 mg PO QAM 90 tabs 0RF Coding Level of Care Code Est Pt Level 4 (56925) Complex EM visit Add On G2211 Diagnoses Hypertension, essential, benign I10 Polyarthralgia M25.50 IFG (impaired fasting glucose) R73.01 Mild recurrent major depression F33.0 Tobacco abuse Z72.0
[2024-02-06 08:24] VITALS: BP 146/82; PULSE 82; RESP 14; TEMP 36.9; O2SAT 99; BMI 25.9
[2024-02-06 08:29] VITALS: BP 132/80
== END 2024-02-06 09:01 | disposition home or self-care (01) ==
PROVIDERS: PCP Family Medicine; Visit Provider Physician Assistant
DX: I10 Essential (primary) hypertension (principal); M25.50 Pain in unspecified joint; R73.01 Impaired fasting glucose; F33.0 Major depressive disorder, recurrent, mild; Z72.0 Tobacco use
CPT/HCPCS: 99214; G2211

== ENCOUNTER 2024-03-11 14:14 | Outpatient (AMB) | payer OTHER, SELFPAY ==
[2024-03-11 14:28] VITALS: BP 131/85; PULSE 71; BMI 25.5
--- NOTE | 2024-03-11 14:28 | A.OFFVIS_ITS ---
Vital Signs 03/11/24 14:28 Height 5 ft 6 in Weight 158 lb 4.67 oz BMI 25.5 BP 131/85 Blood Pressure Location Lt brachial Position Sitting Pulse 71 Intake Visit Reasons: screening colo, constipation Intake Note: Logan presents to in office today as a new patient for colonoscopy screening and constipation. CC: Patient states that he has been having constipation since he was in the hospital at [facility] by the end of November. Per patient constipation is getting better but he still not as regular as before. Patient has never had a colonoscopy done before. 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 female here today for pre colonoscopy screening.? Patient was sent to us by his PCP.? This is his first colonoscopy screening.? Patient denies any gastrointestinal symptoms in the past or at present.? Patient reports that he was admitted to [facility] for severe anemia and was found to have acute on chronic nosebleed. Patient reports that he had to go to Interventional Radiology where they have to surgically repair. Patient reports to have black stools then as he was having blood dripping down to his throat. After discharge patient was having trouble moving his bowels, however reports that his bowels have normalized now. Currently patient denies any melena or hematochezia. Denies any personal or family history of gastrointestinal disease, colon polyps, or CRC.? Denies history of difficulty with sedation or anesthesia in the past.? Negative for history of sleep apnea.? Denies any history of cardiac, renal, pulmonary, or hepatic disease.?? No history of infectious? diseases like hepatitis A, B, C, HIV or tuberculosis.? Patient is not on any anticoagulation [facility] Medical History Alcohol use disorder, mild, in early remission, abuse Hypertension, essential, benign COPD (chronic obstructive pulmonary disease) RADHA (iron deficiency anemia) Recurrent epistaxis Positive ANDERS (antinuclear antibody) Polyarthralgia Mild recurrent major depression Nicotine dependence, cigarettes, uncomplicated CORNEJO (dyspnea on exertion) Bilateral leg paresthesia Paresthesias in right hand Right hand pain Proximal leg weakness Lumbar pain with radiation down both legs Bilateral hip pain Surgical History H/O eye surgery History of ankle surgery Family History Mother Heart disease Breast cancer Father Stroke Deep vein thrombosis Paternal Grandfather Stroke Brother Lung cancer Brother Tumor cells, malignant Social History Housing: House Housing Other:: rents Patient Tobacco Use Status: Current everyday Tobacco user Cigarettes Per Day: 12 Years Smoked: 50 e-Cigarette/Vaping Use: Never Used Second Hand Smoke Exposure: Yes (past ) service: No Current occupational status: employed 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 [employer] Current occupational exposures/hazards: Yes (ladder use) Cognitive needs: No Hearing needs: Yes (hearing loss ) Vision needs: Yes (glasses) Review of Systems Const Denies weight gain and Denies weight loss ENT Reports no additional complaints, Denies dysphagia and Denies odynophagia Card Reports no additional complaints Resp Reports no additional complaints GI Denies abdominal pain, Denies belching, Denies melena, Denies bloating, Denies change in bowel habits, Denies dysphagia, Denies excessive flatus, Denies dyspepsia, Denies heartburn, Denies diarrhea, Denies loose stools, Denies nausea, Denies odynophagia and Denies vomiting Reports no additional complaints Musc Reports no additional complaints Neuro Reports no additional complaints Psych Reports no additional complaints Endo Reports no additional complaints Physical Exam Vital Signs: Last Vital Signs Pulse 71 03/11/24 14:28 BP 131/85 03/11/24 14:28 BMI result Body Mass Index 25.5 Const General: healthy appearing, no acute distress and well developed Nutritional Appearance: well nourished Orientation/consciousness: patient oriented x3 Resp Effort & Inspection: normal respiratory effort, able to speak in complete sentences, no tracheal deviation and symmetric chest movement Auscultation: clear to auscultation bilaterally Cardio Rate: regular rate GI Inspection: Yes normal to inspection and No distended Palpation (GI): Soft to palpation, not firm, nontender and No hepatosplenomegaly present Auscultation: normal bowel sounds General: Yes no CVA tenderness Back/Spine/Pelvis Back: no CVA tenderness Skin General skin exam: elasticity normal, turgor normal and dry skin Neuro General: patient oriented x3 Psych Appearance: grossly normal Mental Status: mental status grossly normal Assessment & Plan Assessment & Plan (1) Screen for colon cancer: Code(s): Z12.11 - Encounter for screening for malignant neoplasm of colon (2) GERD (gastroesophageal reflux disease): Code(s): K21.9 - Gastro-esophageal reflux disease without esophagitis Qualifiers: Esophagitis presence: esophagitis presence not specified Qualified Code(s): K21.9 - Gastro-esophageal reflux disease without esophagitis Plan Patient denies any GI, cardiac or respiratory symptoms.? Denies any issues with anesthesia in the past.? Denies any history of sleep apnea.? No history infectious diseases in the past or present.? Not on any anticoagulation therapy.? No family or personal history of colon cancer or polyps.? Patient denies melena, hematochezia, unintentional weight loss or ribbon like stools.? Discussed at length the pre-procedure,? prep, diet & medications as well as what to expect prior, during and after the procedure.?? Stressed the importance of good bowel prep.? Recommended the use of Vaseline or Calmoseptine OTC & baby wipes with bowel movements to promote comfort.? ?Patient verbalizes understanding and agrees to plan of care.? He was given the opportunity to ask questions and all questions answered.? We will see him after the procedure.? Medications: New bisacodyl (Dulcolax (bisacodyl)) take 4 tabs at noon the day before your colonoscopy 20 mg (4 x 5 mg) PO ONCE 4 tabs 0RF 1 day Z12.11 - Encounter for screening for malignant neoplasm of colon polyethylene glycol 3350 (Miralax) As directed by gastroenterology department at [facility] 238 grams PO ONCE 238 grams 0RF Z12.11 - Encounter for screening for malignant neoplasm of colon Coding Level of Care Code New Pt Level 3 (76161) Diagnoses Screen for colon cancer Z12.11 Gastroesophageal reflux disease, unspecified whether esophagitis present K21.9 Esophagitis presence: esophagitis presence not specified Time Spent (min) 40 Comment 30 minutes spent with patient and additional 10 minutes spent reviewing his records
== END 2024-03-11 15:49 | disposition home or self-care (01) ==
PROVIDERS: PCP Family Medicine; Visit Provider Nurse Practitioner Family
DX: Z12.11 Encounter for screening for malignant neoplasm of colon (principal); K21.9 Gastro-esophageal reflux disease without esophagitis; Z01.818 Encounter for other preprocedural examination
CPT/HCPCS: 99203

== ENCOUNTER → 2024-03-11 14:14 | Outpatient (BNVA) | payer OTHER, SELFPAY | PROVIDERS: PCP Family Medicine; Visit Provider Nurse Practitioner Family | DX: Z01.818 Encounter for other preprocedural examination (principal); K21.9 Gastro-esophageal reflux disease without esophagitis | CPT/HCPCS: 99202 ==

== ENCOUNTER 2024-03-12 14:35 | Outpatient (AMB) | payer OTHER, SELFPAY ==
--- NOTE | 2024-03-12 14:44 | MHC.PC.OV ---
Vital Signs 03/12/24 14:45 Height 5 ft 6 in Weight 161 lb 4 oz BMI 26.0 BP 124/78 Blood Pressure Location Rt brachial Position Sitting Respiration 15 Pulse Source Pulse Oximeter Temp 97.6 F Temp Source Temporal Artery Scan Pulse Oximetry (%) 96 Oxygen Delivery Method Room Air Intake Visit Reasons: BP check Intake Note: Patient states hes been feeling more unsteady and has been having issues with back and leg pain. Deportation Examiner Required: No Accompanied by: Self / Same As Patient Allergies No Known Allergies Allergy (Verified 03/12/24 14:50) Medication List - Last Reconciled 03/12/24 by Cuba Bell MD albuterol sulfate 90 mcg/actuation (Ventolin HFA) inhalation amlodipine 5 mg PO DAILY bisacodyl (Dulcolax (bisacodyl)) 20 mg (4 x 5 mg) PO ONCE 1 day bupropion HCl XL (Wellbutrin XL) 150 mg PO QAM folic acid 1 mg PO DAILY lisinopril 10 mg PO DAILY metoprolol succinate ER 25 mg PO DAILY nicotine 1 patch transdermal DAILY polyethylene glycol 3350 (Miralax) 238 grams PO ONCE psyllium seed (sugar) (Metamucil (sugar) oral powder) 1 tbsp PO DAILY PRN tiotropium bromide (Spiriva with HandiHaler) 1 cap inhalation DAILY Tobacco use date assessed: 01/11/24 Dental Screening Dental Screen Date: 01/11/24 HPI BP check HPI Details 64 y/o male presents to f/u lumbar radiculopathy and hypertension. Blood pressure today 124/78. He is on lisinopril 10mg, metoprolol 25mg, amlodipine 5mg daily. He reports a cough/tickle in his throat. Pt notes pain is mostly on hip, back and notes numbness and weakness to his legs. He denies any numbness to his genitals, loss of urine. He notes he continues to do physical therapy. COUNTS INCLUDE 234 BEDS AT [facility] Medical History Alcohol use disorder, mild, in early remission, abuse Hypertension, essential, benign COPD (chronic obstructive pulmonary disease) RADHA (iron deficiency anemia) Recurrent epistaxis Positive ANDERS (antinuclear antibody) Polyarthralgia Mild recurrent major depression Nicotine dependence, cigarettes, uncomplicated CORNEJO (dyspnea on exertion) Bilateral leg paresthesia Paresthesias in right hand Right hand pain Proximal leg weakness Lumbar pain with radiation down both legs Bilateral hip pain Surgical History H/O eye surgery History of ankle surgery Family History Mother Heart disease Breast cancer Father Stroke Deep vein thrombosis Paternal Grandfather Stroke Brother Lung cancer Brother Tumor cells, malignant Social History Housing: House Housing Other:: rents Patient Tobacco Use Status: Current everyday Tobacco user Cigarettes Per Day: 12 Years Smoked: 50 e-Cigarette/Vaping Use: Never Used Second Hand Smoke Exposure: Yes (past ) service: No Current occupational status: employed 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 Alexis Alexandra, Josefina Holt, Nolan Galicia and colleagues, with an educational vinod from [employer]. Review of Systems Const Denies chills, Denies fatigue, Denies fever(s), Denies headache(s) and Denies weakness ENT Denies dizziness and Denies headache(s) Card Denies dyspnea Resp Denies cough, Denies dyspnea, Denies wheezing and Denies other (shortness of breath) Musc Denies numbness and Denies tingling Neuro Denies dizziness, Denies headache(s), Denies numbness, Denies tingling and Denies weakness Psych Denies anxiety and Denies depression Endo Denies fatigue Aller/Immun Denies wheezing Physical exam (Primary Care) Vital Signs: Last Vital Signs Temp 97.6 F 03/12/24 14:45 Resp 15 03/12/24 14:45 BP 124/78 03/12/24 14:45 Pulse Ox 96 03/12/24 14:45 Oxygen Delivery Method Room Air 03/12/24 14:45 BMI result Body Mass Index 26.0 Tobacco/Smoking Status: Tobacco use Status Tobacco use date assessed 01/11/24 03/12/24 14:44 Patient Tobacco Use Status Current everyday Tobacco 03/12/24 14:44 e-Cigarette/Vaping Use Never Used 03/12/24 14:44 Thrive Assessment: Date of Thrive Assessment Date Thrive assessed 12/31/23 03/12/24 14:44 Const General: well developed; No acute distress Nutritional Appearance: well nourished Orientation/consciousness: patient oriented x3 [facility] Head: Yes normocephalic and Yes atraumatic Eyes General: appearance normal, both eyes and all related structures Pupils: Equal, round and reactive pupils present EOM: EOMs intact bilaterally Resp Effort & Inspection: normal respiratory effort Auscultation: clear to auscultation bilaterally Cardio Rate: regular rate Rhythm: regular rhythm Heart sounds: S1 normal heart sound present, S2 normal heart sound present, no gallops, no murmurs and no rubs Neuro Other: Unsteady gait, hunched over when ambulating General: patient oriented x3 and No gait normal Cranial nerves: Yes Equal, round and reactive pupils present Psych Affect: normal affect Assessment and Plan Assessment & Plan (1) Hypertension, essential, benign: Code(s): I10 - Essential (primary) hypertension Plan: Blood?pressure?well?controlled?and?at?goal?of?less?than?140/90?since?the?addition?of?lisinopril?to?his?medication?regimen. Continue?current?medication?regimen After?discussing?possible?cough/tickle?in?throat?patient?notes?that?he?may?have?symptoms?such?as?this.??Unclear?if?this?is?truly?due?to?lisinopril. He?will?continue?current?medication?regimen?but?we?are?following?up?in?about?a?month.??He?will?let?me?know?if?this?worsens?or?does?not?go?away.??Would?change?to?losartan. (2) Lumbar radiculopathy: Code(s): M54.16 - Radiculopathy, lumbar region Plan: Ongoing?low?back?and?hip?pain?radiating?into?right?lower?extremity Also?notes?some?numbness?and?weakness?in?bilateral?legs?with?unsteady?gait. Patient?denies?any?saddle?anesthesia?or?incontinence. Given?that?patient?still?has?radicular?symptoms?despite?treatment?including?physical?therapy,?will?check?MRI?of?lumbar?spine May?need?referral?to?ortho?or?Neurosurgery. Will?follow-up?in?a?month?to?discuss?next?steps. (3) Cough: Code(s): R05.9 - Cough, unspecified Plan: As?above (4) Lower extremity weakness: Code(s): R29.898 - Other symptoms and signs involving the musculoskeletal system Plan: As?above,?check?MRI.??May?need?referral?to?Ortho?or?neuro?surgery. Continue?using?cane Continue?physical?therapy (5) COPD (chronic obstructive pulmonary disease): Code(s): J44.9 - Chronic obstructive pulmonary disease, unspecified Qualifiers: COPD type: unspecified COPD Qualified Code(s): J44.9 - Chronic obstructive pulmonary disease, unspecified Plan: Patient?has?appointment?for?PFTs Orders: Orders MR lumbar spine wo con Today M54.16 - Radiculopathy, lumbar region, R20.2 - Paresthesia of skin, R29.898 - Other symptoms and signs involving the musculoskeletal system Coding Level of Care Code Est Pt Level 4 (18937) Diagnoses Hypertension, essential, benign I10 Lumbar radiculopathy M54.16 Cough R05.9 Lower extremity weakness R29.898 Chronic obstructive pulmonary disease, unspecified COPD type J44.9 COPD type: unspecified COPD
[2024-03-12 14:45] VITALS: BP 124/78; RESP 15; TEMP 36.4; O2SAT 96; BMI 26.0
== END 2024-03-12 15:29 | disposition home or self-care (01) ==
PROVIDERS: PCP Family Medicine; Visit Provider Family Medicine
DX: I10 Essential (primary) hypertension (principal); M54.16 Radiculopathy, lumbar region; R05.9 Cough, unspecified; R29.898 Other symptoms and signs involving the musculoskeletal system; J44.9 Chronic obstructive pulmonary disease, unspecified
CPT/HCPCS: 99214

== ENCOUNTER 2024-03-17 08:31 | Outpatient (AMB) | payer OTHER, SELFPAY ==
--- NOTE | 2024-03-17 08:36 | MHC.OFFVIS ---
Vital Signs 03/17/24 08:43 Height 5 ft 6 in Weight 162 lb 4.163 oz BMI 26.2 BP 124/72 Blood Pressure Location Rt brachial Position Sitting Pulse 86 Pulse Source Pulse Oximeter Pulse Oximetry (%) 96 Oxygen Delivery Method Room Air Intake Visit Reasons: Joint Pain/CM Intake Note: Patient presents for joint pain. When having lower back pain/hip pain my legs get weak and numb. Allergies No Known Allergies Allergy (Verified 03/17/24 08:40) Medication List - Last Reconciled 03/17/24 by Adriana Sauceda MD albuterol sulfate 90 mcg/actuation (Ventolin HFA) inhalation amlodipine 5 mg PO DAILY bupropion HCl XL (Wellbutrin XL) 150 mg PO QAM folic acid 1 mg PO DAILY lisinopril 10 mg PO DAILY metoprolol succinate ER 25 mg PO DAILY nicotine 1 patch transdermal DAILY polyethylene glycol 3350 (Miralax) 238 grams PO ONCE psyllium seed (sugar) (Metamucil (sugar) oral powder) 1 tbsp PO DAILY PRN tiotropium bromide (Spiriva with HandiHaler) 1 cap inhalation DAILY HPI Comments Details: This is a 64-year-old male who presents for evaluation of multiple joint pain as well as a positive ANDERS. States that he has had low back was for years but it has become worse over the last year so. He gets low back achiness and stiffness sometimes he gets radiating numbness in his legs especially with walking. Leaning forward on a shopping cart or sitting down improves his symptoms. He also gets achiness of his right hand associated with tingling and numbness of his fingers. He is unaware of any family history of an autoimmune rheumatic disease. He denies any unexplained weight loss or fevers. Denies any skin rashes. Denies any history of DVT/PE. He was referred for PT and an L-spine MRI [facility] Medical History Alcohol use disorder, mild, in early remission, abuse Hypertension, essential, benign COPD (chronic obstructive pulmonary disease) RADHA (iron deficiency anemia) Recurrent epistaxis Positive ANDERS (antinuclear antibody) Polyarthralgia Mild recurrent major depression Nicotine dependence, cigarettes, uncomplicated CORNEJO (dyspnea on exertion) Bilateral leg paresthesia Paresthesias in right hand Right hand pain Proximal leg weakness Lumbar pain with radiation down both legs Bilateral hip pain Surgical History H/O eye surgery History of ankle surgery Family History Mother Heart disease Breast cancer Father Stroke Deep vein thrombosis Paternal Grandfather Stroke Brother Lung cancer Brother Tumor cells, malignant Social History Housing: House Housing Other:: rents Patient Tobacco Use Status: Current everyday Tobacco user Cigarettes Per Day: 12 Years Smoked: 50 e-Cigarette/Vaping Use: Never Used Second Hand Smoke Exposure: Yes (past ) service: No Current occupational status: employed 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 [employer] Current occupational exposures/hazards: Yes (ladder use) Cognitive needs: No Hearing needs: Yes (hearing loss ) Vision needs: Yes (glasses) Review of Systems Const Denies fever(s), Reports weight gain and Denies weight loss Musc Reports back pain, Reports arthralgias, Denies joint swelling, Reports numbness, Reports radiating pain into limb and Reports stiffness Neuro Reports numbness Physical Exam Vital Signs: Last Vital Signs Pulse 86 03/17/24 08:43 BP 124/72 03/17/24 08:43 Pulse Ox 96 03/17/24 08:43 Oxygen Delivery Method Room Air 03/17/24 08:43 BMI result Body Mass Index 26.2 Const General: cooperative, healthy appearing and comfortable Nutritional Appearance: overweight Orientation/consciousness: patient oriented x3 Limitations: ambulation with cane HEENT Head: Yes normocephalic and Yes atraumatic Mouth: moist mucous membranes Resp Effort & Inspection: normal respiratory effort and able to speak in complete sentences Auscultation: wheezes right upper Cardio Rate: regular rate Rhythm: regular rhythm Skin General skin exam: no rashes or lesions noted Neuro General: patient oriented x3 Extrem Other: Minimal osteoarthritic changes of both hands with no active synovitis Negative Tinel sign bilaterally Positive Durkan's test on the right Jeanne test 10-13 cm No knee swelling or tenderness bilaterally Normal range of motion of knees without pain Bilateral groin pain with foot inversion Some lower back pain with straight leg raise test bilaterally Negative Fabere test bilaterally Normal nailfold capillaroscopy Assessment & Plan Assessment & Plan (1) Positive ANDERS (antinuclear antibody): Code(s): R76.8 - Other specified abnormal immunological findings in serum Category: Medical Plan: This is a 64-year-old male who presents for evaluation of a positive ANDERS in the setting of diffuse pain. Upon evaluation I do not see any signs suggestive of an autoimmune rheumatic disease. Symptoms more consistent with degenerative arthritis of the lower back, hips, hands. an MRI of his L-spine was ordered by his PCP which I think is reasonable given symptoms of neurogenic claudication. ANDERS 1-40 is generally considered negative in the Rheumatology world and is of unclear significance. Discussed symptoms and signs suggestive of an autoimmune rheumatic disease. Patient can return as needed Plan I spent 30_ minutes reviewing patient's chart, evaluating patient, counseling patient and documenting in the chart Coding Level of Care Code New Pt Level 3 (87501) Diagnoses Positive ANDERS (antinuclear antibody) R76.8
[2024-03-17 08:43] VITALS: BP 124/72; PULSE 86; O2SAT 96; BMI 26.2
== END 2024-03-17 09:23 | disposition home or self-care (01) ==
PROVIDERS: PCP Family Medicine; Visit Provider Student in an Organized Health Care Education/Training Program
DX: R76.8 Other specified abnormal immunological findings in serum (principal)
CPT/HCPCS: 99203

== ENCOUNTER → 2024-03-17 08:31 | Outpatient (BNVA) | payer OTHER, SELFPAY | PROVIDERS: PCP Family Medicine; Visit Provider Student in an Organized Health Care Education/Training Program | DX: R76.8 Other specified abnormal immunological findings in serum (principal) | CPT/HCPCS: 99202 ==

== ENCOUNTER 2024-03-28 10:19 | Outpatient (AMB) | payer OTHER, SELFPAY ==
--- NOTE | 2024-03-28 07:53 | A.OFFVIS_ITS ---
Intake Visit Reasons: Current Smoker Allergies No Known Allergies Allergy (Verified 03/17/24 08:40) HPI HPI Current Smoker: Details: Initial visit for this 64yo smoker with a 45PYH. Patient has been smoking since age 15 for 49 years at 1ppd. Max 1.5ppd, Now 1/2ppd. . Reports marijuana use. 2-3 x week. Denies second hand smoke exposure. Denies exposure to chemicals or substances like asbestos. . Reports family history of lung cancer. Brother age 65. Denies personal history of cancers. Denies chest CT in last year. . Denies recent travel outside the [place]. Denies recent respiratory illness or recent hospitalization for respiratory issues. Denies testing positive for COVID. Admits receiving COVID Vaccine. x2. . Denies fever, chills, new/worsening cough, hemoptysis, hoarseness or dysphagia. Denies significant chest pain, significant dyspnea or unintentional weight loss. Patient Lung Cancer Screening Questionnaire reviewed with patient by provider. . Shared Decision Making Completed. Patient meets criteria. Discussed in detail with patient, the risk vs benefit of LDCT screening. Patient consents to proceed with scan. Discussed smoking cessation. [facility] Medical History (Updated 03/28/24 @ 10:24 by Jo Ann Villalobos PA-C) Alcohol use disorder, mild, in early remission, abuse Hypertension, essential, benign COPD (chronic obstructive pulmonary disease) RADHA (iron deficiency anemia) Recurrent epistaxis Positive ANDERS (antinuclear antibody) Polyarthralgia Mild recurrent major depression Nicotine dependence, cigarettes, uncomplicated CORNEJO (dyspnea on exertion) Bilateral leg paresthesia Paresthesias in right hand Right hand pain Proximal leg weakness Lumbar pain with radiation down both legs Bilateral hip pain Surgical History H/O eye surgery History of ankle surgery Family History Mother Heart disease Breast cancer Father Stroke Deep vein thrombosis Paternal Grandfather Stroke Brother Lung cancer Brother Tumor cells, malignant Social History (Updated 03/28/24 @ 10:24 by Jo Ann Villalobos PA-C) Housing: House Housing Other:: rents Patient Tobacco Use Status: Current everyday Tobacco user Cigarettes Per Day: 12 Years Smoked: onset 15yo, 1ppd x 49yrs, now 1/2ppd - 45pyh e-Cigarette/Vaping Use: Never Used Second Hand Smoke Exposure: Yes (past ) service: No Current occupational status: employed 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 - Patient meets criteria for LDCT for lung cancer screening purposes and is asymptomatic. - Smoking cessation counseling offered. Patients can always call [phone]. - Will arrange for a LDCT scan of the chest for screening purposes at [facility]. - Risks, benefits, and alternatives were discussed in detail and the patient agrees to proceed. - Risks discussed include but are not limited to: radiation exposure, anxiety during testing and while awaiting results, false negatives, false positives and possibility of additional intervention such as further imaging or surgical procedures for benign disease. - Benefits are obviously detection of lung cancer at an early stage which can lead to improved outcomes. - Discussed the importance of screening program compliance with adherence to yearly LDCT scan as scheduled - or sooner interval scans for personalized screening regimen. - Discussed follow up plan. Our office will send a letter discussing results and if needed set up phone call and office visit based on CT findings. - Patient educated on results categorization and the management decisions for suspicious findings potentially found on the screening LDCT scan. Any patient with a Lung RADS score of 3 or 4 will be reviewed by a multidisciplinary team at [facility] to form a plan of action in regards to scan findings. - If further work up is warranted for a suspicious lung finding this will be followed by the Lung Cancer Screening program in conjunction with the Thoracic Surgery Department at [facility]. - A copy of the office note and LDCT will be sent to the patient's PCP - as well as documentation on any associated further plans of care. - Incidental findings on LDCT are the PCP's responsibility. These findings are indicated with an S finding on the LDCT Assessment. A note discussing the findings will be sent to the PCP who is then responsible for further management. - All questions answered.? Coding Level of Care Code Lung Cancer Screening [id number] Diagnoses Nicotine dependence, cigarettes, uncomplicated F17.210
== END 2024-03-28 10:37 | disposition home or self-care (01) ==
PROVIDERS: PCP Family Medicine; Referring Provider Family Medicine; Visit Provider Physician Assistant Medical
DX: F17.210 Nicotine dependence, cigarettes, uncomplicated (principal)
CPT/HCPCS: G0296

== ENCOUNTER 2024-03-28 10:34 | Outpatient (REF) | payer OTHER, SELFPAY ==
--- NOTE | ~2024-03-28 | CT_ITS ---
EXAMINATION: CT LOW-DOSE SCREENING CHEST WITHOUT CONTRAST CLINICAL INFORMATION: Nicotine dependence, cigarettes, uncomplicated. The patient is a current smoker with a 49 pack-year history of smoking. COMPARISON: None available. TECHNIQUE: Multidetector volumetric CT imaging of the chest is performed on a Siemens SOMATOM Definition scanner without contrast using low dose technique. Additional 2D coronal and sagittal reformatted images and axial 3D maximum intensity projection (MIP) images are generated on the CT workstation. This CT examination was performed using dose optimization techniques as appropriate, variously including the following: *Automated exposure control *Adjustment of mA and/or kV according to patient size (this includes techniques or standardized protocols for targeted exams where dose is matched to indication/reason for exam; i.e. extremities or head) *Use of iterative reconstruction technique TOTAL EXAM DLP: 45 mGy-cm. CTDIvol: 1.37 mGy. FINDINGS: PULMONARY NODULES: -2 mm nodule juxtapleural location in the lateral right upper lobe (series 5, image 110). -5 mm triangular shaped nodule superior segment right lower lobe with pleural tag extending into an accessory fissure (series 5, image 299), most likely intrapulmonary lymph node. -No left-sided nodules. LUNGS: -There is mild to moderate paraseptal and centrilobular emphysema. -There is mild linear scarring in the medial left lower lobe and inferior right middle lobe. -There is minor bibasilar dependent atelectasis. -No abnormal groundglass opacities or consolidations. -Mild diffuse small airway thickening is present suggesting bronchitis. No bronchiectasis or endobronchial filling defects. The trachea is patent as are the mainstem bronchi. MEDIASTINUM: -Ascending aorta is mildly aneurysmal measuring 4.4 cm in diameter on this non-gated study. There is mild aortic calcific atheromatous change. There is no additional aneurysm. There is a two-vessel branching pattern. -Main pulmonary artery is normal in size. -There is a 9 mm precarinal lymph node with normal fatty hilum, presumably reactive. There are otherwise no additional significant lymph nodes. -Heart size is normal. No pericardial effusion. -No esophageal abnormalities. CORONARY ARTERY CALCIFICATION: There is moderate to heavy three-vessel coronary calcification. THYROID GLAND: Unremarkable to the extent seen. CHEST WALL/AXILLA: No adenopathy or masses. UPPER ABDOMEN: Included portions of the solid organs in the upper abdomen unremarkable on noncontrast imaging. OSSEOUS STRUCTURES: No suspicious lytic or blastic bone lesions identified. Mild degenerative changes in the thoracic spine. CT/CT lung screening IMPRESSION: 1. Two right-sided nodules as detailed measuring up to 5 mm, the larger presumably an intrapulmonary lymph node. No suspicious nodules identified. 2. Mild to moderate centrilobular and paraseptal emphysema. Diffuse mild small airway thickening suggests bronchitis. 3. No active lung disease identified. 4. Aneurysmal dilatation of the ascending aorta measuring up to 4.4 cm on this non-gated study. Continued monitoring suggested. 5. Moderate to heavy three-vessel coronary calcifications. ASSESSMENT: 1. Lung-RADS Category 2: Benign appearance or behavior of nodules. 2. Lung-RADS Category S: None. RECOMMENDATION: Continued routine annual low-dose CT lung screening in 1 year is recommended. An order for CT CHEST LOW DOSE CANCER SCREENING ([id number]) can be placed.
== END 2024-03-28 10:35 | disposition home or self-care (01) ==
LOC: HO.CT 10:34
PROVIDERS: PCP Family Medicine; Visit Provider Physician Assistant Medical
DX: Z12.2 Encounter for screening for malignant neoplasm of respiratory organs (principal); F17.210 Nicotine dependence, cigarettes, uncomplicated
CPT/HCPCS: 71271; G0296

== ENCOUNTER → 2024-03-28 10:34 | Outpatient (BNV) | payer OTHER, SELFPAY | PROVIDERS: PCP Family Medicine; Visit Provider Radiology Diagnostic Radiology | DX: F17.200 Nicotine dependence, unspecified, uncomplicated (principal) | CPT/HCPCS: 71271 ==

== ENCOUNTER 2024-04-14 09:34 | Outpatient (AMB) | payer OTHER, SELFPAY ==
--- NOTE | 2024-04-14 09:36 | MHC.PC.OV ---
Vital Signs 04/14/24 09:44 Height 5 ft 6 in Weight 160 lb 6 oz BMI 25.9 BP 130/80 Blood Pressure Location Lt brachial Position Sitting Respiration 16 Pulse 86 Pulse Source Pulse Oximeter Temp 98 F Temp Source Tympanic Pulse Oximetry (%) 96 Oxygen Delivery Method Room Air Intake Visit Reasons: f/u lumbar radiculopathy, leg weakness, MRI Intake Note: follow up for hypertension/ bilateral leg numbness and weakness and per patient mri was not cover by his insurance Allergies No Known Allergies Allergy (Verified 04/14/24 09:42) Tobacco use date assessed: 01/11/24 Dental Screening Dental Screen Date: 01/11/24 HPI f/u lumbar radiculopathy, leg weakness, MRI HPI Details 64 y/o male presents to f/u lumbar radiculopathy and review MRI results. Also f/u cough/tickle in throat. Reports ongoing weaknes to his legs. Denies any loss of urine/stool. Had ordered MRI but was declined. [facility] Medical History (Updated 03/28/24 @ 10:24 by Jo Ann Villalobos PA-C) Alcohol use disorder, mild, in early remission, abuse Hypertension, essential, benign COPD (chronic obstructive pulmonary disease) RADHA (iron deficiency anemia) Recurrent epistaxis Positive ANDERS (antinuclear antibody) Polyarthralgia Mild recurrent major depression Nicotine dependence, cigarettes, uncomplicated CORNEJO (dyspnea on exertion) Bilateral leg paresthesia Paresthesias in right hand Right hand pain Proximal leg weakness Lumbar pain with radiation down both legs Bilateral hip pain Surgical History H/O eye surgery History of ankle surgery Family History Mother Heart disease Breast cancer Father Stroke Deep vein thrombosis Paternal Grandfather Stroke Brother Lung cancer Brother Tumor cells, malignant Social History (Updated 03/28/24 @ 10:24 by Jo Ann Villalobos PA-C) Housing: House Housing Other:: rents Patient Tobacco Use Status: Current everyday Tobacco user Cigarettes Per Day: 12 Years Smoked: onset 15yo, 1ppd x 49yrs, now 1/2ppd - 45pyh e-Cigarette/Vaping Use: Never Used Second Hand Smoke Exposure: Yes (past ) service: No Current occupational status: employed 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 Alexis Alexandra, Josefina Holt, Nolan Galicia and colleagues, with an educational vinod from [employer]. Review of Systems Const Denies chills, Denies fatigue, Denies fever(s), Denies headache(s) and Denies weakness ENT Denies dizziness and Denies headache(s) Card Denies dyspnea Resp Reports cough, Denies dyspnea and Denies wheezing Musc Denies numbness and Denies tingling Neuro Denies dizziness, Denies headache(s), Denies numbness, Denies tingling and Denies weakness Psych Denies anxiety and Denies depression Endo Denies fatigue Aller/Immun Denies wheezing Physical exam (Primary Care) Vital Signs: Last Vital Signs Temp 98 F 04/14/24 09:44 Pulse 86 04/14/24 09:44 Resp 16 04/14/24 09:44 BP 130/80 04/14/24 09:44 Pulse Ox 96 04/14/24 09:44 Oxygen Delivery Method Room Air 04/14/24 09:44 BMI result Body Mass Index 25.9 Tobacco/Smoking Status: Tobacco use Status Tobacco use date assessed 01/11/24 04/14/24 09:38 Patient Tobacco Use Status Current everyday Tobacco 04/14/24 09:38 e-Cigarette/Vaping Use Never Used 04/14/24 09:38 Thrive Assessment: Date of Thrive Assessment Date Thrive assessed 12/31/23 04/14/24 09:38 Const General: well developed; No acute distress Nutritional Appearance: well nourished Orientation/consciousness: patient oriented x3 HENMT Head: Yes normocephalic and Yes atraumatic Eyes General: appearance normal, both eyes and all related structures Pupils: Equal, round and reactive pupils present EOM: EOMs intact bilaterally Resp Effort & Inspection: normal respiratory effort Neuro General: patient oriented x3 and gait normal Cranial nerves: Yes Equal, round and reactive pupils present Psych Affect: normal affect Assessment and Plan Assessment & Plan (1) Lumbar radiculopathy: Code(s): M54.16 - Radiculopathy, lumbar region Plan: Had?ordered?MRI?which?was?declined; reason?given?was?incorrect?as?insurance?dated?he?has?not?had?physical?therapy?or?other?treatments. Patient?has?had?medications?and?physical?therapy?for?greater?than?6?weeks.??He?has?had?pain?for?greater?than?6?weeks?and?in?fact?greater?than?3?months. He?has?had?plain?x-rays?as?well Patient?has?met?all?criteria?that?insurance?has?required.??I?have?asked?the?office?manage?her?to?work?on?this (2) Cough: Code(s): R05.9 - Cough, unspecified Plan: Ongoing?cough. Switching?lisinopril?to?losartan Pulmonary?function?testing?was?done?at?[facility]?and?I?have?requested?the?results Patient?is?a?smoker?and?has?low-dose?CT?scan?acquired?but?not?read?yet?and?I?have?asked?for?results?to?be?updated. (3) Hypertension, essential, benign: Code(s): I10 - Essential (primary) hypertension Plan: Blood?pressure?is?controlled Continue?amlodipine?and?metoprolol. Switching?lisinopril?to?losartan?due?to?cough (4) Nicotine dependence, cigarettes, uncomplicated: Comment: (current smoker - onset 15yo, 1ppd x 49yrs, now 1/2ppd - 45pyh, +fam hx lung ca) Code(s): F17.210 - Nicotine dependence, cigarettes, uncomplicated Plan: Advised?he?discontinue?using?nicotine?patches?as?they?are?listed?as?21?mcg?daily?and?patient?is?only?smoking?about?a?half?pack?per?day Switch?to?lozenges?or Gum?and?patient?agrees. He?is?also?on?bupropion?and?will?continue?this Medications: New losartan 50 mg PO DAILY 90 days 90 tabs 2RF Changed From metoprolol succinate ER 25 mg PO DAILY 90 tabs 0RF To metoprolol succinate ER 25 mg PO DAILY 90 days 90 tabs 2RF Discontinued lisinopril Discontinued Reason: Doctor's Order 10 mg PO DAILY 90 tabs 0RF Coding Level of Care Code Est Pt Level 4 (67841) Diagnoses Lumbar radiculopathy M54.16 Cough R05.9 Hypertension, essential, benign I10 Nicotine dependence, cigarettes, uncomplicated F17.210
[2024-04-14 09:44] VITALS: BP 130/80; PULSE 86; RESP 16; TEMP 36.6; O2SAT 96; BMI 25.9
== END 2024-04-14 10:44 | disposition home or self-care (01) ==
PROVIDERS: PCP Family Medicine; Visit Provider Family Medicine
DX: M54.16 Radiculopathy, lumbar region (principal); R05.9 Cough, unspecified; I10 Essential (primary) hypertension; F17.210 Nicotine dependence, cigarettes, uncomplicated
CPT/HCPCS: 99214

== ENCOUNTER 2024-05-14 09:33 | Outpatient (AMB) | payer OTHER, SELFPAY ==
--- NOTE | 2024-05-14 10:05 | MHC.PC.OV ---
Vital Signs 05/14/24 10:07 Height 5 ft 6 in Weight 165 lb 4 oz BMI 26.7 BP 128/80 Blood Pressure Location Rt brachial Position Sitting Respiration 12 Pulse 90 Pulse Source Pulse Oximeter Temp 97.7 F Temp Source Tympanic Pulse Oximetry (%) 97 Oxygen Delivery Method Room Air Intake Visit Reasons: f/u MRI Intake Note: f/u for low back pain med refill Allergies No Known Allergies Allergy (Verified 05/14/24 10:06) Medication List - Last Reconciled 05/14/24 by Cuba Bell MD albuterol sulfate 90 mcg/actuation (Ventolin HFA) inhalation amlodipine 5 mg PO DAILY bupropion HCl XL (Wellbutrin XL) 150 mg PO QAM folic acid 1 mg PO DAILY losartan 50 mg PO DAILY 90 days metoprolol succinate ER 25 mg PO DAILY 90 days nicotine 1 patch transdermal DAILY polyethylene glycol 3350 (Miralax) 238 grams PO ONCE psyllium seed (sugar) (Metamucil (sugar) oral powder) 1 tbsp PO DAILY PRN tiotropium bromide (Spiriva with HandiHaler) 1 cap inhalation DAILY Tobacco use date assessed: 01/11/24 Dental Screening Dental Screen Date: 01/11/24 HPI f/u MRI HPI Details 64 y/o male presents to f/u low back pain, chronic conditions. Ongoing back pain. Had?ordered?MRI?which?was?declined; reason?given?was?incorrect?as?insurance?dated?he?has?not?had?physical?therapy?or?other?treatments. Patient?has?had?medications?and?physical?therapy?for?greater?than?6?weeks.??He?has?had?pain?for?greater?than?6?weeks?and?in?fact?greater?than?3?months. He?has?had?plain?x-rays?as?well Patient?has?met?all?criteria?that?insurance?has?required.??I?have?asked?the?office?manage?her?to?work?on?this Denies any loss of urine/stools. Does report some constipation. Pt had complaints of an ongoing cough last office visit - had switched lisinopril to losartan. Denies any shortness of breath. He notes breathing improved. [facility] Medical History (Updated 03/28/24 @ 10:24 by Jo Ann Villalobos PA-C) Alcohol use disorder, mild, in early remission, abuse Hypertension, essential, benign COPD (chronic obstructive pulmonary disease) RADHA (iron deficiency anemia) Recurrent epistaxis Positive ANDERS (antinuclear antibody) Polyarthralgia Mild recurrent major depression Nicotine dependence, cigarettes, uncomplicated CORNEJO (dyspnea on exertion) Bilateral leg paresthesia Paresthesias in right hand Right hand pain Proximal leg weakness Lumbar pain with radiation down both legs Bilateral hip pain Surgical History H/O eye surgery History of ankle surgery Family History Mother Heart disease Breast cancer Father Stroke Deep vein thrombosis Paternal Grandfather Stroke Brother Lung cancer Brother Tumor cells, malignant Social History (Updated 03/28/24 @ 10:24 by Jo Ann Villalobos PA-C) Housing: House Housing Other:: rents Patient Tobacco Use Status: Current everyday Tobacco user Cigarettes Per Day: 12 Years Smoked: onset 15yo, 1ppd x 49yrs, now 1/2ppd - 45pyh e-Cigarette/Vaping Use: Never Used Second Hand Smoke Exposure: Yes (past ) service: No Current occupational status: employed 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 Alexis Alexandra, Josefina Holt, Nolan Galicia and colleagues, with an educational vinod from [employer]. Physical exam (Primary Care) Vital Signs: Last Vital Signs Temp 97.7 F 05/14/24 10:07 Pulse 90 05/14/24 10:07 Resp 12 05/14/24 10:07 BP 128/80 05/14/24 10:07 Pulse Ox 97 05/14/24 10:07 Oxygen Delivery Method Room Air 05/14/24 10:07 BMI result Body Mass Index 26.7 Tobacco/Smoking Status: Tobacco use Status Tobacco use date assessed 01/11/24 05/14/24 10:09 Patient Tobacco Use Status Current everyday Tobacco 05/14/24 10:09 e-Cigarette/Vaping Use Never Used 05/14/24 10:09 Thrive Assessment: Date of Thrive Assessment Date Thrive assessed 12/31/23 05/14/24 10:09 Assessment and Plan Assessment & Plan (1) Lumbar radiculopathy: Code(s): M54.16 - Radiculopathy, lumbar region Plan: Ongoing?lumbar?radiculopathy?and?symptoms?suspicious?for?a?spinal?stenosis. I?had?ordered?an?MRI?which?insurance?denied?for?spurious?reasons,?stating?that?he?has?not?had?physical?therapy?etcetera - these?are?incorrect. Patient?has?had?symptoms?greater?than?5?months,?he?has?undergone?physical?therapy?which?has?not?resolved?the?problem.??He?has?tried?conservative?medications?including?ibuprofen. He?has?had?x-rays. Patient?should?have?an?MRI?and?I?have?reordered?this.??If?still?being?declined?by?insurance,?will?have?a?peer?to?peer?discussion?to?get?that?ordered. He?also?has?a?referral?to?neurology?and?appointment?is?scheduled?for?July. Will?also?give?him?a?script?for?gabapentin?that?he?can?try?at?bedtime Follow-up?in?about?6?weeks - sooner?if?symptoms?worsen?for?example?any?saddle?anesthesia,?urinary?or?stool?incontinence. (2) Cough: Code(s): R05.9 - Cough, unspecified Plan: This?seems?to?have?resolved. Patient?has?Spiriva?and?Ventolin?inhaler?if?needed Pulmonary?function?testing?was?performed?at?[facility].??I?still?do?not?have?the?results?and?will?request?these. (3) COPD (chronic obstructive pulmonary disease): Code(s): J44.9 - Chronic obstructive pulmonary disease, unspecified Qualifiers: COPD type: unspecified COPD Qualified Code(s): J44.9 - Chronic obstructive pulmonary disease, unspecified Plan: Lungs?are?clear?and?patient?is?breathing?easily Using?Spiriva?but?not?needing?Ventolin Will?continue?inhaled?meds?while?I?am?awaiting?pulmonary?function?testing Encouraged?smoking?cessation (4) Nicotine dependence, cigarettes, uncomplicated: Comment: (current smoker - onset 15yo, 1ppd x 49yrs, now 1/2ppd - 45pyh, +fam hx lung ca) Code(s): F17.210 - Nicotine dependence, cigarettes, uncomplicated Plan: Patient?has?been?weaning?down?smoking?but?still?having?some?difficulty?getting?below?half?pack?per?day Continue?bupropion Continue?weaning?and?goal?of?cessation Orders: Orders MR lumbar spine wo con Today M25.551 - Pain in right hip, M25.552 - Pain in left hip, M54.16 - Radiculopathy, lumbar region, R20.2 - Paresthesia of skin, R29.898 - Other symptoms and signs involving the musculoskeletal system Medications: New gabapentin 300 mg PO BEDTIME 30 days 30 caps 2RF Refilled bupropion HCl XL (Wellbutrin XL) 150 mg PO QAM 90 tabs 0RF Coding Level of Care Code Est Pt Level 4 (98216) Diagnoses Lumbar radiculopathy M54.16 Cough R05.9 Chronic obstructive pulmonary disease, unspecified COPD type J44.9 COPD type: unspecified COPD Nicotine dependence, cigarettes, uncomplicated F17.210
[2024-05-14 10:07] VITALS: BP 128/80; PULSE 90; RESP 12; TEMP 36.5; O2SAT 97; BMI 26.7
== END 2024-05-14 10:57 | disposition home or self-care (01) ==
PROVIDERS: PCP Family Medicine; Visit Provider Family Medicine
DX: M54.16 Radiculopathy, lumbar region (principal); R05.9 Cough, unspecified; J44.9 Chronic obstructive pulmonary disease, unspecified; F17.210 Nicotine dependence, cigarettes, uncomplicated
CPT/HCPCS: 99214

== ENCOUNTER 2024-06-17 08:38 | Outpatient (REF) | payer OTHER, SELFPAY ==
--- NOTE | ~2024-06-17 | MR_ITS ---
EXAMINATION: MR LUMBAR SPINE WITHOUT CONTRAST CLINICAL INFORMATION: Lower extremity pain and weakness. Low back pain. COMPARISON: None available. TECHNIQUE: MRI of the lumbar spine was obtained using routine sequences without contrast. FINDINGS: Submitted for interpretation on August 08, 2024. Last rib-bearing vertebra labeled T12. Bone marrow inhomogeneity. No gross bone marrow STIR signal abnormality. There is subtle bone marrow STIR signal in the right posterior vertebral body of L5. Multilevel marginal osteophyte formation and disc desiccation with vacuum phenomena. Multilevel Modic type II endplate changes. There is a subtle grade 1 retrolisthesis L4-5. Conus medullaris ends at pedicle of L1 with normal signal. T12-L1: Broad-based disc bulging. Facet joint hypertrophy. No disc herniation. Reduced AP diameter of the thecal sac. No neuroforamina stenosis. L1-2: Broad-based disc bulging. Facet joint and ligamentum flavum hypertrophy. Reduced AP diameter of the thecal sac and the neural foramina likely encroaching the neural elements. L2-3: Broad-based bulging. Facet joint and ligamentum flavum hypertrophy. CSF effacement of the thecal sac reduced AP diameter of the thecal sac and the neural foramina encroaching and likely compressing the neural elements both of the thecal sac and the right L2 exiting nerve root. L3-4: Broad-based disc bulging. Facet joint and ligamentum flavum hypertrophy resulting in CSF effacement of the thecal sac central spinal canal stenosis and bilateral neuroforamina stenosis compressing the neural elements. L4-5: Broad-based disc bulging facet joint and ligamentum flavum hypertrophy. CSF effacement of the thecal sac central spinal canal and bilateral neuroforamina stenosis likely compressing the neural elements. L5-S1: Broad-based disc bulging. Facet joint and ligamentum flavum hypertrophy. Reduced AP diameter of the thecal sac and the neural foramina encroaching the neural elements of the thecal sac and likely compressing the L5 exiting nerve roots. Fatty atrophy of the lower lumbar muscles. No prevertebral compartment hematoma, mass or fluid collection. MR/MR lumbar spine wo con IMPRESSION: Multilevel lumbar spondylosis resulting in central spinal canal and bilateral neuroforamina stenosis compressing the neural elements of the thecal sac and the exiting nerve roots from L2-3 to L5-S1 more conspicuous at L3-4 and L4-5 levels. Osteopenia versus osteoporosis. Lymphoproliferative disorder seems less likely. Electronically signed by: Hipolito Paez MD 08/08/2024 09:24 AM [facility] M [facility]
--- NOTE | ~2024-06-17 | XR_ITS ---
EXAMINATION: XR PRE-MRI SCREENING CLINICAL INDICATION: Pre-MRI orbit. COMPARISON: None available. TECHNIQUE: 4 views of the orbits. FINDINGS: Radiodense material identified bilaterally overlying the inferior and lateral aspects of the bilateral maxillary sinuses. Frontal sinuses appear clear. No radiopaque foreign body appreciated in the region of the orbits. XR/XR pre mri screening IMPRESSION: Radiodense material identified bilaterally overlying the inferior and lateral aspects of the bilateral maxillary sinuses possibly related to prior oral maxillofacial procedure and correlation with clinical history recommended. No radiopaque foreign body appreciated in the region of the orbits. This study was presented today June 17, 2024 for interpretation. Stat results provided at this time as requested by referring provider. Electronically signed by: Eula Boo MD 06/17/2024 10:19 AM EDT
== END 2024-06-17 08:39 | disposition home or self-care (01) ==
LOC: HO.MRI 08:38
PROVIDERS: PCP Family Medicine; Visit Provider Family Medicine
DX: R29.898 Other symptoms and signs involving the musculoskeletal system (principal); M54.16 Radiculopathy, lumbar region; R20.2 Paresthesia of skin; M25.551 Pain in right hip; M25.552 Pain in left hip
CPT/HCPCS: 72148

== ENCOUNTER → 2024-06-17 08:40 | Outpatient (BNV) | payer OTHER, SELFPAY | PROVIDERS: PCP Family Medicine; Visit Provider Radiology Diagnostic Radiology | DX: R29.898 Other symptoms and signs involving the musculoskeletal system (principal) | CPT/HCPCS: 72148 ==

== ENCOUNTER 2024-06-30 08:18 | Outpatient (AMB) | payer OTHER, SELFPAY ==
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
[2024-06-30 08:30] VITALS: BP 149/95; PULSE 78; RESP 14; TEMP 36.7; O2SAT 97; BMI 27.3
== END 2024-06-30 09:09 | disposition home or self-care (01) ==
PROVIDERS: PCP Family Medicine; Visit Provider Family Medicine
DX: M54.16 Radiculopathy, lumbar region (principal); R29.898 Other symptoms and signs involving the musculoskeletal system; J44.9 Chronic obstructive pulmonary disease, unspecified; R05.9 Cough, unspecified; R07.89 Other chest pain

== ENCOUNTER → 2024-06-30 08:18 | Outpatient (BNVA) | payer OTHER, SELFPAY | PROVIDERS: PCP Family Medicine; Visit Provider Family Medicine | DX: M54.16 Radiculopathy, lumbar region (principal); R29.898 Other symptoms and signs involving the musculoskeletal system; J44.9 Chronic obstructive pulmonary disease, unspecified; R05.9 Cough, unspecified; R07.89 Other chest pain | CPT/HCPCS: 96127; 99212 ==

== ENCOUNTER → 2024-07-28 09:35 | Outpatient (BNVA) | payer OTHER, SELFPAY | PROVIDERS: PCP Family Medicine; Visit Provider Family Medicine ==

== ENCOUNTER → 2024-07-28 09:35 | Outpatient (BNVA) | payer OTHER, SELFPAY | PROVIDERS: PCP Family Medicine; Visit Provider Family Medicine ==

== ENCOUNTER 2024-08-07 08:25 | Day surgery (SDC) | payer OTHER, SELFPAY ==
[2024-08-05 09:56] VITALS: BMI 25.5
--- NOTE | 2024-08-06 09:27 | P.CONAN_ITS ---
Documented by User: Daily Flores NP 08/06/24 09:28 HPI - Anesthesia Eval Consult details Narrative: 64yo M for Upper Endoscopy and Colonoscopy [facility] Active Problems Active Problems: All Active Problems Chest wall pain (Acute) Lower extremity weakness (Acute) Cough (Acute) Nicotine dependence, cigarettes, uncomplicated (Acute) Mild anemia (Acute) Lumbar radiculopathy (Acute) Positive ANDERS (antinuclear antibody) (Acute) Polyarthralgia (Acute) IFG (impaired fasting glucose) (Acute) Mild recurrent major depression (Acute) CORNEJO (dyspnea on exertion) (Acute) Bilateral leg paresthesia (Acute) Paresthesias in right hand (Acute) Right hand pain (Acute) Proximal leg weakness (Acute) Lumbar pain with radiation down both legs (Acute) Bilateral hip pain (Acute) Alcohol use disorder, mild, in early remission, abuse (Acute) RADHA (iron deficiency anemia) (Acute) Recurrent epistaxis (Acute) COPD (chronic obstructive pulmonary disease) (Acute) Hypertension, essential, benign (Acute) Past Medical History Medical History Alcohol use disorder, mild, in early remission, abuse Hypertension, essential, benign COPD (chronic obstructive pulmonary disease) RADHA (iron deficiency anemia) Recurrent epistaxis Positive ANDERS (antinuclear antibody) Polyarthralgia Mild recurrent major depression Nicotine dependence, cigarettes, uncomplicated CORNEJO (dyspnea on exertion) Bilateral leg paresthesia Paresthesias in right hand Right hand pain Proximal leg weakness Lumbar pain with radiation down both legs Bilateral hip pain Family History Family History Mother Heart disease Breast cancer Father Stroke Deep vein thrombosis Paternal Grandfather Stroke Brother Lung cancer Brother Tumor cells, malignant Surgical History Surgical History H/O eye surgery History of ankle surgery Social History Social History Housing: House Housing Other:: rents Are you a primary career placement specialist to a significant other at home: No Do you presently have visiting nurse or other home services: No Patient Tobacco Use Status: Current everyday Tobacco user Tobacco use type: Cigarette Cigarettes Per Day: 12 Years Smoked: onset 15yo, 1ppd x 49yrs, now 1/2ppd - 45pyh Smoked in Last 30 Days: Yes e-Cigarette/Vaping Use: Never Used Patient Interested in Nicotine Replacement: No Second Hand Smoke Exposure: Yes (past ) Substance Use Frequency: Daily Have you been hit, kicked, punched, or otherwise hurt by someone within the past year? 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/hazards: Yes (ladder use) Cognitive needs: No Hearing needs: Yes (hearing loss ) Vision needs: Yes (glasses) Meds Allergies Allergy/AdvReac Type Severity Reaction Status Date / Time No Known Allergies Allergy Verified 08/07/24 09:04 Home Medications ?Medication ?Instructions ?Recorded ?Confirmed ?Last Taken ?Type nicotine 1 patch transdermal DAILY 12/31/23 08/07/24 Unknown History 21mg/24hr-14mg/24hr-7mg/24hr daily transderm patches,sequentl psyllium seed (sugar) oral powder 1 tbsp PO DAILY PRN Constipation 03/11/24 08/07/24 Unknown History (Metamucil (sugar) oral powder) Exam Height,Weight and Vital Signs: Height 5 ft 6 in Weight 71.668 kg Pertinent Lab Results Pertinent Lab Results: Laboratory Tests 01/04/24 10:24 WBC 10.5 Hgb 11.8 L Hct 35.3 L Plt Count 302 Sodium 136 Potassium 4.0 Chloride 100 Carbon Dioxide 27 BUN 19 H Creatinine 0.82 Narrative Narrative: EKG 01/2024 NSR @ 82 Exercise Stress 01/2024 Protocol: SHABBIR Max HR: 130 BPM 82% of Pred: 157 BPM Max BP: 148/076 mmHG Max Work Load: 7.2 METS Exercise stress test exercise 6 in 12 sec of Shabbir protocol achieivng 83% MPHR, with mild to moderate SOB, no chest pains, with normotensive response to exercise, with borderline suboptimal heart rate without EJG chnages at achieved workload. Test reviewed with Dr. Alberto If further testing is required pharmacological stress test would be reccomended. Assessment and Plan Assessment Anesthesia Assessment: Chart Reviewed Documented by User: Celi Avitia MD 08/07/24 09:27 [facility] Past Medical History Medical History Alcohol use disorder, mild, in early remission, abuse Hypertension, essential, benign COPD (chronic obstructive pulmonary disease) RADHA (iron deficiency anemia) Recurrent epistaxis Positive ANDERS (antinuclear antibody) Polyarthralgia Mild recurrent major depression Nicotine dependence, cigarettes, uncomplicated CORNEJO (dyspnea on exertion) Bilateral leg paresthesia Paresthesias in right hand Right hand pain Proximal leg weakness Lumbar pain with radiation down both legs Bilateral hip pain Family History Family History Mother Heart disease Breast cancer Father Stroke Deep vein thrombosis Paternal Grandfather Stroke Brother Lung cancer Brother Tumor cells, malignant Family history of problems with anesthesia: No Surgical History Surgical History H/O eye surgery History of ankle surgery History of Problems with Anesthesia: No Social History Social History Housing: House Housing Other:: rents Are you a primary career placement specialist to a significant other at home: No Do you presently have visiting nurse or other home services: No Patient Tobacco Use Status: Current everyday Tobacco user Tobacco use type: Cigarette Cigarettes Per Day: 12 Years Smoked: onset 15yo, 1ppd x 49yrs, now 1/2ppd - 45pyh Smoked in Last 30 Days: Yes e-Cigarette/Vaping Use: Never Used Patient Interested in Nicotine Replacement: No Second Hand Smoke Exposure: Yes (past ) Substance Use Frequency: Daily Have you been hit, kicked, punched, or otherwise hurt by someone within the past year? 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/hazards: Yes (ladder use) Cognitive needs: No Hearing needs: Yes (hearing loss ) Vision needs: Yes (glasses) Meds Allergies Allergy/AdvReac Type Severity Reaction Status Date / Time No Known Allergies Allergy Verified 08/07/24 09:04 Home Medications ?Medication ?Instructions ?Recorded ?Confirmed ?Last Taken ?Type nicotine 1 patch transdermal DAILY 12/31/23 08/07/24 Unknown History 21mg/24hr-14mg/24hr-7mg/24hr daily transderm patches,sequentl psyllium seed (sugar) oral powder 1 tbsp PO DAILY PRN Constipation 03/11/24 08/07/24 Unknown History (Metamucil (sugar) oral powder) Exam Airway Mallampati Class: II TM Dist: >3cm Neck ROM: Full Heart: rrr Lungs: cta Assessment and Plan Assessment Anesthesia Assessment: Anesthesia Plan Discussed Final Anesthetic Review Family History of Problems with Anesthesia: No History of Problems with Anesthesia: No NPO: Yes ASA Class: III Final Preanesthetic Review: No Changes in Pt Med Stat, Meds/Allgs Chart Reviewed, Consent Obtained/Reviewed and Anes Risks/Benef Reviewed Patient Risk: Intermediate Procedure Risk: Low Anesthetic Plan Anesthetic Plan: MAC: Disposition: Standard PACU
[2024-08-07 09:01] VITALS: BMI 25.3
[2024-08-07] MEDS: Lactated Ringers 1,000 ML 100 ML IVCONT (09:11)
[2024-08-07 09:21] VITALS: BP 134/94; PULSE 101; RESP 18; TEMP 36.7; O2SAT 97
--- NOTE | 2024-08-07 10:10 | MHC.SHP ---
Pre-Procedural Eval Section A - 24 Hr Update-Section A only Date of Service: 08/07/24 Section B - Complete if H&P > 30 days Chief Complaint: Encounter for screening for malignant neoplasm of Details of Present Illness: Alcohol use disorder, mild, in early remission, abuse Hypertension, essential, benign COPD (chronic obstructive pulmonary disease) RADHA (iron deficiency anemia) Recurrent epistaxis Positive ANDERS (antinuclear antibody) Polyarthralgia Mild recurrent major depression Nicotine dependence, cigarettes, uncomplicated CORNEJO (dyspnea on exertion) Bilateral leg paresthesia Paresthesias in right hand Right hand pain Proximal leg weakness Lumbar pain with radiation down both legs Bilateral hip pain Present Medications: see Short Stay Collaborative assessment Allergies: Allergies Allergy/AdvReac Type Severity Reaction Status Date / Time No Known Allergies Allergy Verified 08/07/24 09:04 Review of Systems Review of Systems Comment: Ten point ROS negative Exam Exam Comment: Gen appear: No acute distress HEENT: no icterus Chest: No overt resp distress Abd: soft, nontender, nondistended Psych: Stable affect, answering questions appropriately Neuro: A/Ox3 noted to move all extremities spontaneously Ext: no peripheral edema Plan Diagnosis/Plan: Unchanged I have reviewed the history and physical and performed a pertinent physical examination on my patient. No changes have occurred unless specified. Time Spent With Patient Time: Total time managing care of this patient today ____ minutes.
--- NOTE | 2024-08-07 11:54 | P.OPN-COLO_ITS ---
Colonoscopy Operative Note Operative Note Date of Service: 08/07/24 Narrative: Procedure: Upper endoscopy and colonoscopy Indication: GERD, screening Endoscopist: Summer Sargent MD Anesthesia Provider: Mercy Grier CRNA Anesthesia type: MAC Instrument: GIF-H190 and PCF-[id number] EGD Procedure:?? The procedure, indications, preparation and potential complications were reviewed with the patient, who indicated understanding and gave written informed consent to proceed. The endoscope was introduced through the mouth, and advanced to the 2nd part of the duodenum. The mucosa was carefully examined on slow withdrawal of the endoscope. The patient tolerated the procedure well. There were no immediate complications.? EGD Findings:? * Esophagus:? Normal esophageal mucosa was noted. The Z-line was at 40 cm. * Stomach:? Erythema in a mosaic pattern with scant heme consistent with portal hypertensive gastropathy. Retroflexion was performed in the cardia. Random cold forceps biopsies were taken from the stomach to r/o PHG. * Duodenum:? Erythema and edema throughout the duodenum suspicious for portal duodenopathy. Colonoscopy Procedure:? The patient was then turned for the colonoscopy. A digital rectal exam was performed which was abnormal for external hemorrhoids.? A distal attachment cap was affixed to the tip of the scope and the colonoscope was then inserted through the anus and advanced through the colon and advanced to the cecum at 75 cm.? Appendiceal orifice and ileocecal valve were identified. Mucosa was carefully examined under high definition white light as the instrument was slowly withdrawn in a retrograde panoramic fashion. Retroflexion was performed in rectum. The procedure was not difficult. The quality of the prep was BBPS: 2+2+2 = adequate Withdrawal time 66 minutes Limitations: No limitations Findings: Mucosa: Normal colon and terminal ileum mucosa. Protruding lesions: * 1 sessile polyp of size 2 mm in cecum. Cold snare polypectomy was performed. The polyp was completely removed and retrieved. * 2 sessile polyps of size 2-4 mm in ascending colon. Cold snare polypectomy was performed. The polyp was completely removed and retrieved. * 1 laterally spreading flat polyp (Katherine 0-IIa) size 35 mm in transverse colon at 65 cm. 3 cc of epinephrine was injected at the base of the polyp. The polyp was then lifted with Eleview. Piecemeal polypectomy was performed and complete polypectomy was performed. The polypectomy defect was closed with x2 Resolution Ultra clips. Endomark was placed at 60 cm for future surveillance. * 1 sessile polyp of size 4 mm in transverse colon. Cold snare polypectomy was performed. The polyp was completely removed and retrieved. * 1 semi pedunculated polyp size 12 mm in transverse colon. Hot snare polypectomy was performed. The polyp was completely removed and retrieved. * 1 sessile polyp of size 8 mm in descending colon. Cold snare polypectomy was performed. The polyp was completely removed and retrieved. * 1 pedunculated polyp of size 18 mm in sigmoid colon at 40 cm. Hot snare polypectomy was performed. The polyp was completely removed and retrieved. * 1 pedunculated polyp of size 15 mm in sigmoid colon at 30 cm. Hot snare polypectomy was performed. The polyp was completely removed and retrieved. * 1 semi-pedunculated polyp of size 15 mm in sigmoid colon at 25 cm. Hot snare polypectomy was performed. The polyp was removed in two pieces and retrieved. * 1 pedunculated polyp of size 20 mm in rectum at 5 cm. 2 cc of epinephrine was injected at the base of the polyp. Hot snare polypectomy was performed. The polyp was completely removed and retrieved. * Large internal hemorrhoids without stigmata of recent bleeding. Excavated lesions: * Mild diverticulosis of the left side of the colon. Impression: 1. Normal esophagus 2. Portal hypertensive gastropathy (biopsy) 3. Portal hypertensive duodenopathy (biopsy) 4. Total of 11 polyps removed including a large polyp in transverse colon. 5. Diverticulosis 5. Internal and external hemorrhoids Recommendations:?? * Follow-up path results * Avoid NSAIDs * Consider US Abd for liver imaging * Repeat colonoscopy will be set up in 6 months for polyp surveillance of piece- meal polypectomy done in transverse colon. * Pt also counseled to have EARLY crc screening in first degree relatives.
[2024-08-07 11:55] VITALS: BP 119/82; PULSE 85; RESP 16; TEMP 36.5; O2SAT 97
[2024-08-07 12:11] VITALS: BP 125/68; PULSE 80; RESP 16; TEMP 36.1; O2SAT 98
== END 2024-08-07 12:54 | disposition home or self-care (01) ==
PROVIDERS: PCP Family Medicine; Visit Provider Internal Medicine
PROC: (CPT 45385; principal; 2024-08-07 10:10)
DX: Z12.11 Encounter for screening for malignant neoplasm of colon (principal); D12.0 Benign neoplasm of cecum; D12.2 Benign neoplasm of ascending colon; D12.3 Benign neoplasm of transverse colon; D12.4 Benign neoplasm of descending colon; D12.5 Benign neoplasm of sigmoid colon; D12.7 Benign neoplasm of rectosigmoid junction; D12.8 Benign neoplasm of rectum; K57.30 Diverticulosis of large intestine without perforation or abscess without bleeding; K64.8 Other hemorrhoids; K64.4 Residual hemorrhoidal skin tags; Z86.0101 Personal history of adenomatous and serrated colon polyps; K76.6 Portal hypertension; K29.80 Duodenitis without bleeding; K31.7 Polyp of stomach and duodenum; K31.89 Other diseases of stomach and duodenum; K21.9 Gastro-esophageal reflux disease without esophagitis; I10 Essential (primary) hypertension; J44.9 Chronic obstructive pulmonary disease, unspecified; D50.9 Iron deficiency anemia, unspecified; F10.11 Alcohol abuse, in remission; F17.210 Nicotine dependence, cigarettes, uncomplicated; Z79.899 Other long term (current) drug therapy
CPT/HCPCS: 45385; 45381; 43239; 88305; 88313; 88342; J0171; J1596; J2003; J2250; J2405; J2704

== ENCOUNTER → 2024-08-07 08:25 | Outpatient (BNV) | payer OTHER, SELFPAY | PROVIDERS: PCP Family Medicine; Visit Provider Internal Medicine | DX: Z12.11 Encounter for screening for malignant neoplasm of colon (principal); D12.0 Benign neoplasm of cecum; D12.3 Benign neoplasm of transverse colon; D12.5 Benign neoplasm of sigmoid colon; D12.8 Benign neoplasm of rectum; K63.5 Polyp of colon; K57.30 Diverticulosis of large intestine without perforation or abscess without bleeding; K64.8 Other hemorrhoids; K21.9 Gastro-esophageal reflux disease without esophagitis; K31.89 Other diseases of stomach and duodenum | CPT/HCPCS: 43239; 45381; 45385 ==

== ENCOUNTER → 2024-08-08 10:59 | Outpatient (BNVA) | payer OTHER, SELFPAY | PROVIDERS: PCP Family Medicine; Visit Provider Family Medicine ==

== ENCOUNTER 2024-08-15 12:37 | Outpatient (AMB) | payer OTHER, SELFPAY ==
--- NOTE | 2024-08-15 12:50 | HO.SPINEOV ---
Vital Signs 08/15/24 12:55 Height 5 ft 6 in Weight 162 lb BMI 26.1 Intake Visit Reasons: LBP and weakness Intake Note: Mr. Duke is here today c/o low back pain. 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 He is a 64-year-old gentleman presents to the office today for evaluation of low back pain with numbness in both of his legs. He has had the pain for many years. He reports that the pain is most severe when he is up and walking around. The numbness of the legs is also worsened with activity but can also be present at rest. If he sits for too long he will have to get up and move around. He will occasionally take ibuprofen to deal with this. He underwent physical therapy for few months over the summer and that did seem to make the back pain slightly better. Of note he also complains of some right hand numbness, poor balance, increased urinary symptoms such as frequency and urgency as well. No cauda equina symptoms such as incontinence or loss of saddle sensation. He had an MRI of his lumbar spine showing advanced degenerative changes with scoliotic curvature and severe lumbar stenosis at multiple levels. He is here today to see us for an evaluation. PMH: History of hypertension, history of depression, COPD, recently underwent a colonoscopy and had a large colon polyp which needs to be evaluated by General surgery., he has history of mild anemia, positive ANDERS, impaired fasting glucose but he is not a diabetic officially, alcohol use disorder, epistaxis. Recently underwent a stress test and he tells me that was normal. He had eye surgery at age 13, ankle surgery. Denies any history of major abdominal surgery, strokes, heart attacks, kidney failure, cancer, bleeding disorders. Social hx: He still smokes a half pack to a pack a day. He has intermittent periods where he will binge drink and then periods where he will go a few weeks without a drink. He smokes marijuana most days. Medications: Metoprolol, amlodipine, losartan, folic acid, Spiriva, bupropion, ibuprofen, Ventolin Allergies: None Physical exam: Slow to stand up and walk, he is unstable with tandem gait testing, motor exam reveals subtle bilateral hand weakness, 4-5 left triceps weakness, bilateral iliopsoas weakness 4-5. Distal lower extremity strength is normal. Diffusely hyperreflexic with a Zimmerman's bilateral Imaging review: Lumbar MRI done at [facility] shows diffuse degenerative disc disease, he has transitional anatomy, lumbar stenosis from L2-L5 which I would rate as severe at L3-4 and L4-5. Impression: 64-year-old male presents for evaluation of chronic back pain with numbness of his legs. Interestingly he has severe stenosis at multiple levels of his spine but does not have any pain shooting down the legs. The primary complaint is the numbness of the legs. It does change with activity and gets worse with walking but can also get worse if he sitting for too long. He also reports various symptoms of numbness in his right hand. He is also reporting bladder urgency and frequency and gait imbalance. Neurological examination shows diffuse hyperreflexia, hand weakness, left triceps weakness and difficulty with tandem gait testing. Although his hyperreflexia can be a side effect of his bupropion, in light of the weakness in the hands and gait instability I think we are obligated to get a cervical MRI to exclude myelopathy. The numbness in the legs may also be related to his alcoholism on top of the severe stenosis. I would like him to get the cervical MRI and a set of standing flexion-extension x-rays with a scoliosis survey and then I will see him back and we can have a surgical discussion with Dr. Lozada. Thank you for allowing us to care for your patient. The total time spent with this visit with this patient was 45 minutes reviewing history, physical exam, lumbar imaging review, and implementation of treatment plan or further diagnostic testing Adam Lozada MD,PhD [facility] Orders: Orders XR lumbar spine 4V min Today M48.00 - Spinal stenosis, site unspecified XR scoliosis survey Today M48.00 - Spinal stenosis, site unspecified MR cervical spine wo con Today R20.0 - Anesthesia of skin Coding Level of Care Code New Pt Level 4 (48548) Diagnoses Numbness of lower extremity R20.0 Spinal stenosis M48.00
[2024-08-15 12:55] VITALS: BMI 26.1
== END 2024-08-15 15:11 | disposition home or self-care (01) ==
PROVIDERS: PCP Family Medicine; Referring Provider Family Medicine; Visit Provider Physician Assistant
DX: R20.0 Anesthesia of skin (principal); M48.00 Spinal stenosis, site unspecified
CPT/HCPCS: 99204

== ENCOUNTER → 2024-08-15 12:37 | Outpatient (BNVA) | payer OTHER, SELFPAY | PROVIDERS: PCP Family Medicine; Referring Provider Family Medicine; Visit Provider Physician Assistant | DX: M48.00 Spinal stenosis, site unspecified (principal); R20.0 Anesthesia of skin | CPT/HCPCS: 99202 ==

== ENCOUNTER 2024-08-21 10:05 | Outpatient (AMB) | payer OTHER, SELFPAY ==
[2024-08-21 10:10] VITALS: BP 130/83; PULSE 98; BMI 27.3
--- NOTE | 2024-08-21 10:10 | MHC.OFFVIS ---
Vital Signs 08/21/24 10:10 Height 5 ft 6 in Weight 169 lb BMI 27.3 BP 130/83 Blood Pressure Location Rt brachial Position Standing Pulse 98 Intake Visit Reasons: large polyp transverse colon Intake Note: This patient was referred by Dr. Sargent for large polyp transverse colon. Pt c/o; constipation takes Miralax as needed. 08/07/2024: Colonoscopy- Correspondence Section Supervisor Required: No Accompanied by: Self / Same As Patient Allergies No Known Allergies Allergy (Verified 08/21/24 10:21) HPI HPI large polyp transverse colon: Details: 64-year-old male referred for an anal polyp. He had undergone colonoscopy with Dr. Sargent 2 weeks ago. He had multiple polyps removed. However, there was note of 1 polyp in the area of the dentate line of the anal canal that was not removed and he was referred to me for this. He denies bleeding per rectum. He otherwise denies GI complaints. He is a chronic smoker and still actively smokes. [facility] Medical History (Updated 08/21/24 @ 10:14 by Kannan Jarvis MD) Anal polyp Alcohol use disorder, mild, in early remission, abuse Hypertension, essential, benign COPD (chronic obstructive pulmonary disease) RADHA (iron deficiency anemia) Recurrent epistaxis Positive ANDERS (antinuclear antibody) Polyarthralgia Mild recurrent major depression Nicotine dependence, cigarettes, uncomplicated CORNEJO (dyspnea on exertion) Bilateral leg paresthesia Paresthesias in right hand Right hand pain Proximal leg weakness Lumbar pain with radiation down both legs Bilateral hip pain Surgical History H/O eye surgery History of ankle surgery Family History Mother Heart disease Breast cancer Father Stroke Deep vein thrombosis Paternal Grandfather Stroke Brother Lung cancer Brother Tumor cells, malignant Social History Housing: House Housing Other:: rents Are you a primary health care recruiter to a significant other at home: No Do you presently have visiting nurse or other home services: No Patient Tobacco Use Status: Current everyday Tobacco user Tobacco use type: Cigarette Cigarettes Per Day: 12 Years Smoked: onset 15yo, 1ppd x 49yrs, now 1/2ppd - 45pyh e-Cigarette/Vaping Use: Never Used Second Hand Smoke Exposure: Yes (past ) service: No Current occupational status: employed 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 [employer] Current occupational exposures/hazards: Yes (ladder use) Cognitive needs: No Hearing needs: Yes (hearing loss ) Vision needs: Yes (glasses) Review of Systems Const Denies chills and Denies fever(s) Card Denies chest pain, Denies dyspnea and Reports dyspnea on exertion Resp Denies cough, Denies dyspnea and Reports dyspnea on exertion GI Denies hematochezia and Denies change in bowel habits Denies hematuria and Reports difficulty urinating Musc Denies back pain and Denies limited range of motion Neuro Denies focal weakness and Denies convulsions Psych Denies depression and Denies mood swings Physical Exam Const General: comfortable and no acute distress Orientation/consciousness: patient oriented x3 Neck Neck: Yes no lymphadenopathy Resp Auscultation: clear to auscultation bilaterally Cardio Rhythm: regular rhythm GI Palpation (GI): Soft to palpation, nontender and no guarding Neuro General: patient oriented x3 Office Procedures Anoscopy He was in alex-knife position. The anoscope was gently inserted. A full examination of the anal canal was done. There did appear to be a 1 cm polypoid mass, smooth, well-defined in the anal canal. There were no other lesions seen. There was no fissure or ulceration. There was a tenderness or bleeding. [id number] Assessment & Plan Assessment & Plan (1) Anal polyp: Code(s): K62.0 - Anal polyp Category: Medical Plan: He had a colonoscopy showing an anal polyp in the dentate line. He was therefore referred for excision. I explained to him the technique of exam under anesthesia and excision of this polyp. I reviewed the risks including but not limited to bleeding and infections, as well as the benefits and alternatives. I explained to him what to expect postoperatively. He was given consent. He had multiple polyps on colonoscopy. He is supposed to have repeat colonoscopy in 6 months because of the large polyp removed in the transverse colon. Coding Level of Care Code New Pt Level 3 (42762) Diagnoses Anal polyp K62.0 CPT Codes Details - CPT: 43202-[id number] ([id number])
== END 2024-08-21 10:28 | disposition home or self-care (01) ==
PROVIDERS: PCP Family Medicine; Referring Provider Internal Medicine; Visit Provider Surgery
DX: K62.0 Anal polyp (principal)
CPT/HCPCS: 46600; 99204

== ENCOUNTER 2024-08-21 10:05 | Outpatient (AMB) | payer OTHER, SELFPAY ==
--- NOTE | 2024-08-21 10:20 | MHC.OFFVIS ---
Intake Visit Reasons: EGD [place] S/P r/s 08/22 Intake Note: ESTABLISHED PATIENT Logan presents in office today for a scheduled s/p FUV Meds and Allergies reviewed? Y No recent or relevant surgeries? Double w/ BZ Any significant concerns or new changes? No significant changes or concerns per pt. Pharmacy verified? [facility] [address] [place] Allergies No Known Allergies Allergy (Verified 08/21/24 10:21) HPI HPI EGD [place] S/P r/s 08/22: Details: LAST VISIT: Screen for colon cancer GERD (gastroesophageal reflux disease) Plan Patient denies any GI, cardiac or respiratory symptoms.? Denies any issues with anesthesia in the past.? Denies any history of sleep apnea.? No history infectious diseases in the past or present.? Not on any anticoagulation therapy.? No family or personal history of colon cancer or polyps.? Patient denies melena, hematochezia, unintentional weight loss or ribbon like stools.? Discussed at length the pre-procedure,? prep, diet & medications as well as what to expect prior, during and after the procedure.?? Stressed the importance of good bowel prep.? Recommended the use of Vaseline or Calmoseptine OTC & baby wipes with bowel movements to promote comfort.? ?Patient verbalizes understanding and agrees to plan of care.? He was given the opportunity to ask questions and all questions answered.? We will see him after the procedure.? Medications New bisacodyl (Dulcolax (bisacodyl)) take 4 tabs at noon the day before your colonoscopy 20 mg (4 x 5 mg) PO ONCE 4 tabs 0RF 1 day Z12.11 polyethylene glycol 3350 (Miralax) As directed by gastroenterology department at [facility] 238 grams PO ONCE 238 grams 0RF Z12.11 COLONOSCOPY AND ENDOSCOPY EGD Findings:? Esophagus:? Normal esophageal mucosa was noted. The Z-line was at 40 cm. Stomach:? Erythema in a mosaic pattern with scant heme consistent with portal hypertensive gastropathy. Retroflexion was performed in the cardia. Random cold forceps biopsies were taken from the stomach to r/o PHG. Duodenum:? Erythema and edema throughout the duodenum suspicious for portal duodenopathy. Colonoscopy Procedure:? The patient was then turned for the colonoscopy. A digital rectal exam was performed which was abnormal for external hemorrhoids.? A distal attachment cap was affixed to the tip of the scope and the colonoscope was then inserted through the anus and advanced through the colon and advanced to the cecum at 75 cm.? Appendiceal orifice and ileocecal valve were identified. Mucosa was carefully examined under high definition white light as the instrument was slowly withdrawn in a retrograde panoramic fashion. Retroflexion was performed in rectum. The procedure was not difficult. The quality of the prep was BBPS: 2+2+2 = adequate Withdrawal time 66 minutes Limitations: No limitations Findings: Mucosa: Normal colon and terminal ileum mucosa. Protruding lesions: 1 sessile polyp of size 2 mm in cecum. Cold snare polypectomy was performed. The polyp was completely removed and retrieved. 2 sessile polyps of size 2-4 mm in ascending colon. Cold snare polypectomy was performed. The polyp was completely removed and retrieved. 1 laterally spreading flat polyp (Katherine 0-IIa) size 35 mm in transverse colon at 65 cm. 3 cc of epinephrine was injected at the base of the polyp. The polyp was then lifted with Eleview. Piecemeal polypectomy was performed and complete polypectomy was performed. The polypectomy defect was closed with x2 Resolution Ultra clips. Endomark was placed at 60 cm for future surveillance. 1 sessile polyp of size 4 mm in transverse colon. Cold snare polypectomy was performed. The polyp was completely removed and retrieved. 1 semi pedunculated polyp size 12 mm in transverse colon. Hot snare polypectomy was performed. The polyp was completely removed and retrieved. 1 sessile polyp of size 8 mm in descending colon. Cold snare polypectomy was performed. The polyp was completely removed and retrieved. 1 pedunculated polyp of size 18 mm in sigmoid colon at 40 cm. Hot snare polypectomy was performed. The polyp was completely removed and retrieved. 1 pedunculated polyp of size 15 mm in sigmoid colon at 30 cm. Hot snare polypectomy was performed. The polyp was completely removed and retrieved. 1 semi-pedunculated polyp of size 15 mm in sigmoid colon at 25 cm. Hot snare polypectomy was performed. The polyp was removed in two pieces and retrieved. 1 pedunculated polyp of size 20 mm in rectum at 5 cm. 2 cc of epinephrine was injected at the base of the polyp. Hot snare polypectomy was performed. The polyp was completely removed and retrieved. Large internal hemorrhoids without stigmata of recent bleeding.Excavated lesions: Mild diverticulosis of the left side of the colon. Impression: 1. Normal esophagus 2. Portal hypertensive gastropathy (biopsy) 3. Portal hypertensive duodenopathy (biopsy) 4. Total of 11 polyps removed including a large polyp in transverse colon. 5. Diverticulosis 5. Internal and external hemorrhoids Recommendations:?? Follow-up path results Avoid NSAIDs Consider US Abd for liver imaging Repeat colonoscopy will be set up in 6 months for polyp surveillance of piece-meal polypectomy done in transverse colon. Pt also counseled to have EARLY crc screening in first degree relatives. PATHOLOGY: Diagnosis A. Stomach, biopsy: Oxyntic mucosa with mild chronic inactive inflammation; no Helicobacter organisms seen. See comment. B. Colon, transverse, polypectomies: Hyperplastic mucosal polyps. C. Cecum, polypectomy: Tubular adenoma; negative for high-grade dysplasia or carcinoma. D. Colon, ascending, polypectomies: - Tubular adenoma; negative for high-grade dysplasia or carcinoma. - Colonic mucosa with mild surface hyperplastic changes. E. Colon, transverse at 65 cm, polypectomy: Fragments of tubular adenoma; negative for high-grade dysplasia or carcinoma. F. Colon, 30 cm, polypectomy: Tubular adenoma; negative for high-grade dysplasia or carcinoma. G. Colon, descending, polypectomy: Sessile serrated lesion/polyp; negative for cytologic dysplasia. H. Colon, 40 cm, polypectomy: Tubular adenoma; negative for high-grade dysplasia or carcinoma. I. Colon, 25 cm, polypectomy: Fragments of tubular adenoma; negative for high-grade dysplasia or carcinoma. J. Colon, 5 cm, polypectomy: Tubulovillous adenoma; negative for high-grade dysplasia or carcinoma. Comment (A): The vessels in the lamina propria of the stomach appear normal; this argues against portal hypertensive gastropathy TODAY'S VISIT Patient is here today for follow-up and to discuss upper endoscopy and colonoscopy results. Patient had multiple tubular adenomas, 1 polyp was not extracted due to size and area (anal region) and patient was referred to colorectal surgeon. Patient seen Dr. Jarvis today and they will schedule procedure with him. Patient denies any ill effects from the prep, anesthesia or procedure itself. Patient reports to be feeling well except for his back pain. Patient is waiting to go for MRI. Patient denies any melena, hematochezia, unintentional weight loss or ribbon like stools. Biopsy ruled out portal hypertensive gastropathy. Patient reports that drinks alcohol occasionally. Normal liver enzymes, will check his ultrasound. Occasional abdominal bloating postprandially and cramps. [facility] Medical History Anal polyp Alcohol use disorder, mild, in early remission, abuse Hypertension, essential, benign COPD (chronic obstructive pulmonary disease) RADHA (iron deficiency anemia) Recurrent epistaxis Positive ANDERS (antinuclear antibody) Polyarthralgia Mild recurrent major depression Nicotine dependence, cigarettes, uncomplicated CORNEJO (dyspnea on exertion) Bilateral leg paresthesia Paresthesias in right hand Right hand pain Proximal leg weakness Lumbar pain with radiation down both legs Bilateral hip pain Surgical History H/O eye surgery History of ankle surgery Family History Mother Heart disease Breast cancer Father Stroke Deep vein thrombosis Paternal Grandfather Stroke Brother Lung cancer Brother Tumor cells, malignant Social History Housing: House Housing Other:: rents Are you a primary healthcare architect to a significant other at home: No Do you presently have visiting nurse or other home services: No Patient Tobacco Use Status: Current everyday Tobacco user Tobacco use type: Cigarette Cigarettes Per Day: 12 Years Smoked: onset 15yo, 1ppd x 49yrs, now 1/2ppd - 45pyh e-Cigarette/Vaping Use: Never Used Second Hand Smoke Exposure: Yes (past ) service: No Current occupational status: employed 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 [employer] Current occupational exposures/hazards: Yes (ladder use) Cognitive needs: No Hearing needs: Yes (hearing loss ) Vision needs: Yes (glasses) Assessment & Plan Assessment & Plan (1) Alcohol use disorder, mild, in early remission, abuse: Code(s): F10.11 - Alcohol abuse, in remission Category: Medical (2) Anal polyp: Code(s): K62.0 - Anal polyp Category: Medical (3) Status post colonoscopy: Code(s): Z98.890 - Other specified postprocedural states (4) GERD (gastroesophageal reflux disease): Code(s): K21.9 - Gastro-esophageal reflux disease without esophagitis Plan Patient will be scheduled for ultrasound. I will see him in December to discuss him going for colonoscopy that will be due in January. Multiple tubular adenoma found. Surveillance in 6 months required. Patient denies any melena, hematochezia, unintentional weight loss or ribbon like stools. Anal large polyp will be removed by Dr. Jarvis. Patient had appointment with him today and procedure will be scheduled soon. Patient was encouraged to stay away from alcohol, recommended low-fat, low-salt, low carb and high-protein diet. Patient is agreeable to plan of care and verbalizes understanding of instructions. He was given the opportunity to ask questions and all questions answered. Thank you for allowing me to participate in his care Orders: Orders US abdomen complete Today F10.11 - Alcohol abuse, in remission, R10.9 - Unspecified abdominal pain Coding Level of Care Code Est Pt Level 4 (57674) Complex EM visit Add On G2211 Diagnoses Alcohol use disorder, mild, in early remission, abuse F10.11 Anal polyp K62.0 Status post colonoscopy Z98.890 GERD (gastroesophageal reflux disease) K21.9 Time Spent (min) 35 Comment 20 minutes spent with patient and additional 15 minutes spent reviewing his records
== END 2024-08-21 13:10 | disposition home or self-care (01) ==
PROVIDERS: PCP Family Medicine; Visit Provider Nurse Practitioner Family
DX: K21.9 Gastro-esophageal reflux disease without esophagitis (principal); K62.0 Anal polyp; F10.11 Alcohol abuse, in remission
CPT/HCPCS: 99214; G2211

== ENCOUNTER → 2024-08-21 10:05 | Outpatient (BNVA) | payer OTHER, SELFPAY | PROVIDERS: PCP Family Medicine; Referring Provider Internal Medicine; Visit Provider Surgery | DX: K62.0 Anal polyp (principal); K21.9 Gastro-esophageal reflux disease without esophagitis; F10.11 Alcohol abuse, in remission; F17.210 Nicotine dependence, cigarettes, uncomplicated; Z98.890 Other specified postprocedural states | CPT/HCPCS: 46600; 99202; 99212 ==

== ENCOUNTER 2024-09-01 14:11 | Outpatient (AMB) | payer OTHER, SELFPAY ==
[2024-09-01 14:22] VITALS: BMI 26.5
--- NOTE | 2024-09-01 14:22 | MHC.OFFVIS ---
Vital Signs 09/01/24 14:22 Height 5 ft 6 in Weight 164 lb BMI 26.5 Intake Visit Reasons: INP: Paresthesia of skin Intake Note: Patient presents for parasthesia of skin Allergies No Known Allergies Allergy (Verified 09/01/24 14:24) Medication List - Last Reconciled 09/01/24 by Eunice Manuel MD albuterol sulfate 90 mcg/actuation (Ventolin HFA) 1 puff inhalation Q4-6H 30 days amlodipine 5 mg PO DAILY bupropion HCl XL (Wellbutrin XL) 150 mg PO QAM folic acid 1 mg PO DAILY gabapentin 300 mg PO BEDTIME 30 days losartan 50 mg PO DAILY 90 days metoprolol succinate ER 25 mg PO DAILY 90 days nicotine 1 patch transdermal DAILY psyllium seed (sugar) (Metamucil (sugar) oral powder) 1 tbsp PO DAILY PRN tamsulosin (Flomax) 0.4 mg PO BEDTIME 30 days tiotropium bromide (Spiriva with HandiHaler) 1 cap inhalation DAILY HPI Comments Details: 64y/o male with h/o chronic alcohol use, lumbar spinal stenosis comes for evaluation of numbness weakness tingling in sylvia LE> It started 2-3 years ago and has worsened since then . he was seen at [facility] and was presumed taht the spinal stenosis was causing these symptoms. He is waiting for C spine and Ls spine X ray C spine MRI to r/o cervical stenosis. He has neck and back pain.He has urinary urgency and incontinence occasionally. He has trouble waking on and off and uses cane occasionally. His numbness is mostly in sylvia thighs and calfs. He has h/o alcohol use- since age 20 , drinks several drinks a week . He had a recent fall in May 2024. He also has numbness and weakness of right hand with pain and on and off.He has occasional neck pain but no radicular symptoms. [facility] Medical History (Updated 09/01/24 @ 14:44 by Eunice Manuel MD) Numbness and tingling in right hand Anal polyp Alcohol use disorder, mild, in early remission, abuse Hypertension, essential, benign COPD (chronic obstructive pulmonary disease) RADHA (iron deficiency anemia) Recurrent epistaxis Positive ANDERS (antinuclear antibody) Polyarthralgia Mild recurrent major depression Nicotine dependence, cigarettes, uncomplicated CORNEJO (dyspnea on exertion) Bilateral leg paresthesia Paresthesias in right hand Right hand pain Proximal leg weakness Lumbar pain with radiation down both legs Bilateral hip pain Surgical History H/O eye surgery History of ankle surgery Family History Mother Heart disease Breast cancer Father Stroke Deep vein thrombosis Paternal Grandfather Stroke Brother Lung cancer Brother Tumor cells, malignant Social History Housing: House Housing Other:: rents Are you a primary career center director to a significant other at home: No Do you presently have visiting nurse or other home services: No Patient Tobacco Use Status: Current everyday Tobacco user Tobacco use type: Cigarette Cigarettes Per Day: 12 Years Smoked: onset 15yo, 1ppd x 49yrs, now 1/2ppd - 45pyh e-Cigarette/Vaping Use: Never Used Second Hand Smoke Exposure: Yes (past ) service: No Current occupational status: employed 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 [employer] Current occupational exposures/hazards: Yes (ladder use) Cognitive needs: No Hearing needs: Yes (hearing loss ) Vision needs: Yes (glasses) Physical Exam Vital Signs: BMI result Body Mass Index 26.5 Const General: cooperative, comfortable and no acute distress Nutritional Appearance: average body habitus Orientation/consciousness: patient oriented x3 Eyes Pupils: Equal, round and reactive pupils present Neuro General: patient oriented x3, tone normal and moves all extremities Cranial nerves: Yes Facial sensation intact/muscles of mastication intact, Yes Equal, round and reactive pupils present, Yes Bilaterally intact EOM present, Yes Nystagmus not present, Yes Normal facial strength present and Yes Midline tongue present Cognition (Neuro): normal cognition Gait exam (Neuro): Antalgic gait present Motor exam (neuro): 5/5 motor strength present throughout and Normal motor muscle tone present throughout Deep tendon reflexes (DTR's): Right triceps reflex intensity grade: 3+, Left triceps reflex intensity grade: 3+, Rt Biceps (C5, C6): 3+, Left biceps reflex intensity grade: 3+, Right brachioradialis reflex intensity grade: 3+, Left brachioradialis reflex intensity grade: 3+, Right patellar reflex intensity grade: 3+ and Left patellar reflex intensity grade: 3+ Coordination: [id number] test normal Assessment & Plan Assessment & Plan (1) Numbness and tingling in right hand: Comment: ? carpal tunnel Code(s): R20.0 - Anesthesia of skin; R20.2 - Paresthesia of skin Category: Medical (2) Spinal stenosis: Code(s): M48.00 - Spinal stenosis, site unspecified Category: Medical Qualifiers: Spinal region: lumbar Neurogenic claudication status: with neurogenic claudication Qualified Code(s): M48.062 - Spinal stenosis, lumbar region with neurogenic claudication Plan I will order EMG NCS Right hand to r/o median neuropathy Will defer management of his lumbar spondylosis and spinal stenosis to neurospine specialist Orders: Orders NE electromyogram (EMG) Today R20.0 - Anesthesia of skin, R20.2 - Paresthesia of skin NE nerve conduction velocity Today R20.0 - Anesthesia of skin, R20.2 - Paresthesia of skin Coding Level of Care Code New Pt Level 4 (43291) Diagnoses Numbness and tingling in right hand R20.0; R20.2 Spinal stenosis of lumbar region with neurogenic claudication M48.062 Spinal region: lumbar Neurogenic claudication status: with neurogenic claudication
== END 2024-09-01 14:53 | disposition home or self-care (01) ==
PROVIDERS: PCP Family Medicine; Visit Provider Psychiatry & Neurology Neurology
DX: R20.0 Anesthesia of skin (principal); R20.2 Paresthesia of skin; M48.062 Spinal stenosis, lumbar region with neurogenic claudication
CPT/HCPCS: 99204

== ENCOUNTER → 2024-09-01 14:11 | Outpatient (BNVA) | payer OTHER, SELFPAY | PROVIDERS: PCP Family Medicine; Visit Provider Psychiatry & Neurology Neurology | DX: R20.0 Anesthesia of skin (principal); R20.2 Paresthesia of skin; M48.062 Spinal stenosis, lumbar region with neurogenic claudication | CPT/HCPCS: 99202 ==

== ENCOUNTER → 2024-09-16 10:04 | Outpatient (BNV) | payer OTHER, SELFPAY | PROVIDERS: PCP Family Medicine; Visit Provider Radiology Diagnostic Radiology | DX: R20.0 Anesthesia of skin (principal) | CPT/HCPCS: 72141 ==

== ENCOUNTER 2024-09-16 10:08 | Outpatient (REF) | payer OTHER, SELFPAY ==
--- NOTE | ~2024-09-16 | MR_ITS ---
EXAMINATION: MR CERVICAL SPINE WITHOUT CONTRAST CLINICAL INFORMATION: Pain in motion. Anesthesia of skin. COMPARISON: None available. TECHNIQUE: MRI of the cervical spine was obtained using routine sequences without contrast. FINDINGS: Craniocervical junction is intact. Bone marrow STIR signal abnormality in the endplates of C3-4 and C6-7 levels. Multilevel marginal osteophyte formation, disc desiccation, C5-6 and C6-7 levels and to a lesser extent C3-4. Grade 1 anterolisthesis C3-4. Grade 1 retrolisthesis C6-7. Reverse curvature apex at C5-C6. Multilevel Modic type II endplate changes at C5-6 and Modic type I -II endplate changes at C3-4 and C6-7. Focal hyperintense T2 STIR signal in the dorsal aspect of the cervical spinal cord at C5-6 level. C2-3: No disc herniation. No neuroforamina stenosis. C3-4: Right-sided disc osteophyte complex formation resulting in ventral indentation to the thecal sac. No cord compression. No cord signal abnormality. There is edema in the right facet joint. Bilateral neuroforamina narrowing on a degenerative basis. C4-5: Broad-based disc osteophyte complex formation. Facet joint and ligamentum flavum hypertrophy. No cord compression. Bilateral neuroforamina stenosis more conspicuous on the left side on a degenerative basis. C5-6: Broad-based disc osteophyte complex formation. Facet joint and ligamentum flavum hypertrophy resulting in CSF effacement of the thecal sac and flattening of the spinal cord without cord signal abnormality in the dorsal aspect. There is bilateral neuroforamina stenosis. C6-7: Broad-based disc osteophyte complex formation. Facet joint hypertrophy resulting in partial effacement ventral aspect of the thecal sac. Bilateral neuroforamina stenosis. C7-T1: No disc herniation. No cord compression. No neuroforamina stenosis. No prevertebral compartment hematoma, mass or fluid collections. Flow-void signal within the main vessels is normal. Codominant vertebral arteries. Increased hyperintense T2 signal within the lumen of the left internal jugular vein. MR/MR cervical spine wo con IMPRESSION: Multilevel cervical spondylosis, C3 C7 resulting in cord compression with cord edema and or myelopathy at C5-6, similar findings without cord edema and or myelopathy at C6-7. Electronically signed by: Hipolito Paez MD 09/17/2024 08:58 AM EST
== END 2024-09-16 10:09 | disposition home or self-care (01) ==
LOC: HO.MRI 10:08
PROVIDERS: PCP Family Medicine; Visit Provider Physician Assistant
DX: R20.0 Anesthesia of skin (principal)
CPT/HCPCS: 72141

== ENCOUNTER 2024-09-19 09:41 | Day surgery (SDC) | payer OTHER, SELFPAY ==
[2024-09-17 10:20] VITALS: BMI 27.3
--- NOTE | 2024-09-18 13:50 | HO.ANESPROP2 ---
Documented by User: Daily Flores NP 09/18/24 13:51 HPI - Anesthesia Eval Consult details Narrative: 64yo M for EUA,Excision of ananl polyp s/p colo 08/2024 with [facility] Active Problems Active Problems: All Active Problems Numbness and tingling in right hand (Acute) Anal polyp (Acute) Numbness of lower extremity (Acute) Spinal stenosis (Acute) Personal history of colonic polyps (Acute) Chest wall pain (Acute) Lower extremity weakness (Acute) Cough (Acute) Nicotine dependence, cigarettes, uncomplicated (Acute) Mild anemia (Acute) Lumbar radiculopathy (Acute) Positive ANDERS (antinuclear antibody) (Acute) Polyarthralgia (Acute) IFG (impaired fasting glucose) (Acute) Mild recurrent major depression (Acute) CORNEJO (dyspnea on exertion) (Acute) Bilateral leg paresthesia (Acute) Paresthesias in right hand (Acute) Right hand pain (Acute) Proximal leg weakness (Acute) Lumbar pain with radiation down both legs (Acute) Bilateral hip pain (Acute) Alcohol use disorder, mild, in early remission, abuse (Acute) RADHA (iron deficiency anemia) (Acute) Recurrent epistaxis (Acute) COPD (chronic obstructive pulmonary disease) (Acute) Hypertension, essential, benign (Acute) Past Medical History Medical History Numbness and tingling in right hand Anal polyp Alcohol use disorder, mild, in early remission, abuse Hypertension, essential, benign COPD (chronic obstructive pulmonary disease) RADHA (iron deficiency anemia) Recurrent epistaxis Positive ANDERS (antinuclear antibody) Polyarthralgia Mild recurrent major depression Nicotine dependence, cigarettes, uncomplicated CORNEJO (dyspnea on exertion) Bilateral leg paresthesia Paresthesias in right hand Right hand pain Proximal leg weakness Lumbar pain with radiation down both legs Bilateral hip pain Family History Family History Mother Heart disease Breast cancer Father Stroke Deep vein thrombosis Paternal Grandfather Stroke Brother Lung cancer Brother Tumor cells, malignant Family history of problems with anesthesia: No Surgical History Surgical History H/O eye surgery History of ankle surgery History of Problems with Anesthesia: No Social History Social History Housing: House Housing Other:: rents Are you a primary career services director to a significant other at home: No Do you presently have visiting nurse or other home services: No Patient Tobacco Use Status: Current everyday Tobacco user Tobacco use type: Cigarette Cigarettes Per Day: 12 Years Smoked: onset 15yo, 1ppd x 49yrs, now 1/2ppd - 45pyh e-Cigarette/Vaping Use: Never Used Second Hand Smoke Exposure: Yes (past ) Have you been hit, kicked, punched, or otherwise hurt by someone within the past year? 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 use) Cognitive needs: No Hearing needs: Yes (hearing loss ) Vision needs: Yes (glasses) Meds Allergies Allergy/AdvReac Type Severity Reaction Status Date / Time No Known Allergies Allergy Verified 09/01/24 14:24 Home Medications ?Medication ?Instructions ?Recorded ?Confirmed ?Last Taken ?Type nicotine 1 patch transdermal DAILY 12/31/23 08/07/24 Unknown History 21mg/24hr-14mg/24hr-7mg/24hr daily transderm patches,sequentl psyllium seed (sugar) oral powder 1 tbsp PO DAILY PRN Constipation 03/11/24 09/01/24 Unknown History (Metamucil (sugar) oral powder) Exam Height,Weight and Vital Signs: Height 5 ft 6 in Weight 76.657 kg Pertinent Lab Results Pertinent Lab Results: Laboratory Tests 01/04/24 10:24 WBC 10.5 Hgb 11.8 L Hct 35.3 L Plt Count 302 Sodium 136 Potassium 4.0 Chloride 100 Carbon Dioxide 27 BUN 19 H Creatinine 0.82 Narrative Narrative: EKG 01/2024 NSR @ 82 Exercise Stress 01/2024 Protocol: SHABBIR Max HR: 130 BPM 82% of Pred: 157 BPM Max BP: 148/076 mmHG Max Work Load: 7.2 METS Exercise stress test exercise 6 in 12 sec of Shabbir protocol achieivng 83% MPHR, with mild to moderate SOB, no chest pains, with normotensive response to exercise, with borderline suboptimal heart rate without EJG chnages at achieved workload. Test reviewed with Dr. Remy If further testing is required pharmacological stress test would be reccomended. Assessment and Plan Assessment Anesthesia Assessment: Chart Reviewed Final Anesthetic Review Family History of Problems with Anesthesia: No History of Problems with Anesthesia: No Documented by User: Penny Tobar MD 09/19/24 10:21 [facility] Past Medical History Medical History Numbness and tingling in right hand Anal polyp Alcohol use disorder, mild, in early remission, abuse Hypertension, essential, benign COPD (chronic obstructive pulmonary disease) RADHA (iron deficiency anemia) Recurrent epistaxis Positive ANDERS (antinuclear antibody) Polyarthralgia Mild recurrent major depression Nicotine dependence, cigarettes, uncomplicated CORNEJO (dyspnea on exertion) Bilateral leg paresthesia Paresthesias in right hand Right hand pain Proximal leg weakness Lumbar pain with radiation down both legs Bilateral hip pain Family History Family History Mother Heart disease Breast cancer Father Stroke Deep vein thrombosis Paternal Grandfather Stroke Brother Lung cancer Brother Tumor cells, malignant Surgical History Surgical History H/O eye surgery History of ankle surgery Social History Social History Housing: House Housing Other:: rents Are you a primary career services director to a significant other at home: No Do you presently have visiting nurse or other home services: No Patient Tobacco Use Status: Current everyday Tobacco user Tobacco use type: Cigarette Cigarettes Per Day: 12 Years Smoked: onset 15yo, 1ppd x 49yrs, now 1/2ppd - 45pyh e-Cigarette/Vaping Use: Never Used Second Hand Smoke Exposure: Yes (past ) Have you been hit, kicked, punched, or otherwise hurt by someone within the past year? 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 use) Cognitive needs: No Hearing needs: Yes (hearing loss ) Vision needs: Yes (glasses) Meds Allergies Allergy/AdvReac Type Severity Reaction Status Date / Time No Known Allergies Allergy Verified 09/01/24 14:24 Home Medications ?Medication ?Instructions ?Recorded ?Confirmed ?Last Taken ?Type nicotine 1 patch transdermal DAILY 12/31/23 08/07/24 Unknown History 21mg/24hr-14mg/24hr-7mg/24hr daily transderm patches,sequentl psyllium seed (sugar) oral powder 1 tbsp PO DAILY PRN Constipation 03/11/24 09/01/24 Unknown History (Metamucil (sugar) oral powder) Exam Airway Mallampati Class: III (globally poor dentition) TM Dist: >3cm Neck ROM: Full Loose/Missing/Broken Teeth: Yes, Upper and Lower Heart: RRR Lungs: CTA Assessment and Plan Assessment Anesthesia Assessment: Anesthesia Plan Discussed Final Anesthetic Review NPO: Yes ASA Class: III Final Preanesthetic Review: Meds/Allgs Chart Reviewed, Consent Obtained/Reviewed and Anes Risks/Benef Reviewed Patient Risk: Intermediate Procedure Risk: Intermediate Anesthetic Plan Anesthetic Plan: GA Disposition: Standard PACU
[2024-09-19 09:45] VITALS: BP 162/99; PULSE 102; RESP 18; TEMP 36.6; O2SAT 96; BMI 26.6
[2024-09-19] MEDS: Lactated Ringers 1,000 ML 100 ML IVCONT (10:03)
--- NOTE | 2024-09-19 10:35 | MHC.SHP ---
Pre-Procedural Eval Section A - 24 Hr Update-Section A only Date of Service: 09/19/24 The patient is an INPATIENT: No Changes since office visit: No Cold of Flu in the past 2 weeks, No New Medical Problems, No Changes in Medication and No Patient answered all questions The patient has been examined within 24 hours of the surgical procedure. The History & Physical has been completed within 30 days and I have reviewed it.: Yes Section B - Complete if H&P > 30 days Chief Complaint: Anal polyp Allergies: Allergies Allergy/AdvReac Type Severity Reaction Status Date / Time No Known Allergies Allergy Verified 09/01/24 14:24 Plan I have reviewed the history and physical and performed a pertinent physical examination on my patient. No changes have occurred unless specified. Time Spent With Patient Time: Total time managing care of this patient today ____ minutes.
--- NOTE | 2024-09-19 11:06 | W.PM.OPN ---
Operative Note Operative Note Date of Service: 09/19/24 Narrative: Preop diagnosis: Anal polyp Postop diagnosis: Anal polyp Procedure: Exam under anesthesia, excision of an anal polyp Surgeon: Kannan Jarvis MD [employer] General Manager: CHEIKH Padron student The patient is a 64-year-old male recent colonoscopy and was noted to have an anal polyp in the dentate line. Because of this, I was requested to do excision. I explained that the patient has a technique of this procedure. I reviewed the risks, benefits, and alternatives and had given consent. He was brought to the operating room. He was placed in prone alex-knife position under general anesthesia via endotracheal tube. The buttocks were retracted with wide tape laterally. The perianal area was prepped and draped in usual sterile fashion. A surgical time-out was done. The patient received Cefotan 2 g IV preoperatively I infiltrated the perianal anal area with lidocaine 1%. Examination of the anal orifice did not reveal any lesions. I inserted the Chasity Perez retractor. I examined the anal canal circumferentially. There was note of an anal polyp, about 1 cm in height, at the dentate line itself. This was well-defined and soft. There were no other lesions. There were no ulcers Cerrato's I applied a Phillip grasper at the anal polyp to retract this. I made a [id number] stitch passed the anal polyp proximally. This was made using chromic 3-0 stitch. I made an incision around this anal polyp at the base using blade 15. I excised this polyp above the plane of the sphincters. I closed these incision with a running chromic 3-0 stitch. Hemostasis was confirmed. I then infiltrated the perianal area with Marcaine 0.5% for postop analgesia. The procedure was then completed. The patient tolerated the procedure well. There were no immediate complications. The patient was extubated without difficulty and transferred to the recovery with stable vital signs.
[2024-09-19 11:15] VITALS: BP 135/89; PULSE 75; RESP 18; TEMP 36.3; O2SAT 99
[2024-09-19 11:20] VITALS: BP 131/87; PULSE 73; RESP 16; O2SAT 98
[2024-09-19 11:25] VITALS: BP 133/86; PULSE 78; RESP 16; O2SAT 94
[2024-09-19 11:30] VITALS: BP 130/87; PULSE 71; RESP 16; O2SAT 94
[2024-09-19] MEDS: oxyCODONE HCl Immed Release 5 MG TABLET PO (11:35)
[2024-09-19 11:45] VITALS: BP 155/95; PULSE 74; RESP 16; TEMP 36.2; O2SAT 96
== END 2024-09-19 12:15 | disposition home or self-care (01) ==
PROVIDERS: PCP Family Medicine; Visit Provider Surgery
PROC: (CPT 46922; principal; 2024-09-19 11:00)
DX: K62.0 Anal polyp (principal); K64.4 Residual hemorrhoidal skin tags; I10 Essential (primary) hypertension; D50.9 Iron deficiency anemia, unspecified; J44.9 Chronic obstructive pulmonary disease, unspecified; M25.50 Pain in unspecified joint; R20.2 Paresthesia of skin; M54.16 Radiculopathy, lumbar region; F10.21 Alcohol dependence, in remission; F33.0 Major depressive disorder, recurrent, mild; Z79.899 Other long term (current) drug therapy; F17.210 Nicotine dependence, cigarettes, uncomplicated; Z98.890 Other specified postprocedural states
CPT/HCPCS: 46922; 88304; 88307; J0330; J2003; J2250; J2704; J2795; J3010

== ENCOUNTER → 2024-09-19 09:41 | Outpatient (BNV) | payer OTHER, SELFPAY | PROVIDERS: PCP Family Medicine; Visit Provider Surgery | DX: K62.89 Other specified diseases of anus and rectum (principal) | CPT/HCPCS: 46220 ==

== ENCOUNTER 2024-09-25 14:50 | Outpatient (AMB) | payer OTHER, SELFPAY ==
--- NOTE | 2024-09-25 15:07 | HO.SPINEOV ---
Intake Visit Reasons: MRI f/u Intake Note: Mr. Tellez is here today to F/u on the results to his MRI. Sports Reporter Required: No Allergies No Known Allergies Allergy (Verified 09/25/24 15:14) Assessment & Plan Assessment & Plan (1) Numbness and tingling in right hand: Comment: ? carpal tunnel Code(s): R20.0 - Anesthesia of skin; R20.2 - Paresthesia of skin Category: Medical (2) Spinal stenosis: Code(s): M48.00 - Spinal stenosis, site unspecified Category: Medical Qualifiers: Spinal region: lumbar Neurogenic claudication status: with neurogenic claudication Qualified Code(s): M48.062 - Spinal stenosis, lumbar region with neurogenic claudication Plan Mr Tellez came back today to review his MRI. I believe his cervical MRI done here at [place] is showing us that he has stenosis at C5-6 which might explain his numbness of his right arm and numbness of both legs with hyperreflexia. He has Zimmerman's sign in both hands. Although there is no cord signal change I do think it is moderate to severe. I will show it to Dr. Lozada to see if he thinks it justifies surgery. With regard to his low back, obviously there severe stenosis from L2-L5 and this may need to get addressed as well. He has claudicating leg numbness and feelings of weakness despite having no pain down the legs. This does limit his walking at times it will make him feel as though his legs are going to go off from underneath him. He has a component of back pain but it is not really a major issue in his life. Once I have a chance review everything with Dr. Lozada I will call the patient with a final plan. Total amount of time spent in this visit was 20 minutes in discussion of symptoms, cervical imaging results and subsequent plan of care Adam Lozada MD,PhD [facility] Coding Level of Care Code Est Pt Level 3 (36055) Diagnoses Numbness and tingling in right hand R20.0; R20.2 Spinal stenosis of lumbar region with neurogenic claudication M48.062 Spinal region: lumbar Neurogenic claudication status: with neurogenic claudication
== END 2024-09-25 15:33 | disposition home or self-care (01) ==
PROVIDERS: PCP Family Medicine; Visit Provider Physician Assistant
DX: R20.0 Anesthesia of skin (principal); R20.2 Paresthesia of skin; M48.062 Spinal stenosis, lumbar region with neurogenic claudication
CPT/HCPCS: 99213

== ENCOUNTER → 2024-09-25 14:50 | Outpatient (BNVA) | payer OTHER, SELFPAY | PROVIDERS: PCP Family Medicine; Visit Provider Physician Assistant | DX: M48.062 Spinal stenosis, lumbar region with neurogenic claudication (principal); R20.0 Anesthesia of skin; R20.2 Paresthesia of skin | CPT/HCPCS: 99212 ==

== ENCOUNTER 2024-09-26 13:20 | Outpatient (REF) | payer OTHER, SELFPAY ==
--- NOTE | 2024-09-26 13:23 | EMG_ITS ---
Chief complaint: Numbness on right hand especially 1st and 2nd digits, dropping things Reason for referral: Evaluate for median neuropathy Referred by: Dr. Manuel Procedure done: Right upper extremity NCS/EMG Precautions and/or limitations: None The limb temperature was monitored continuously and remained between 32-36 degrees C during the performance of the NCS. Ulnar motor NCS was performed with moderate elbow flexion between 70-90 degrees, with across-elbow distance of 10 cm. Nerve Conduction Studies Anti Sensory Summary Table ?Stim Site NR Onset (ms) Norm Onset (ms) Peak (ms) Norm Peak (ms) O-P Amp (?V) Norm O-P Amp Site1 Site2 Delta-0 (ms) Dist (cm) Enoc (m/s) Norm Enoc (m/s) Right Median Anti Sensory (2nd Digit) Wrist ? 3.5 4.4 <3.6 16.7 >10 Wrist 2nd Digit 3.5 14.0 40 Right Radial Anti Sensory (Thumb) Forearm ? 1.5 2.0 <3.1 23.8 Forearm Thumb 1.5 0.0 Right Ulnar Anti Sensory (5th Digit) Wrist ? 3.3 4.1 <3.7 11.1 >15.0 Wrist 5th Digit 3.3 14.0 42 Motor Summary Table ?Stim Site NR Onset (ms) Norm Onset (ms) O-P Amp (mV) Norm O-P Amp iAmp (mV) Amp (1st) (%) Site1 Site2 Delta-0 (ms) Dist (cm) Enoc (m/s) Norm Enoc (m/s) Right Median Motor (Abd Poll Brev) Wrist ? 4.5 <3.9 9.3 >4.5 10.7 100.0 Elbow Wrist 3.7 19.0 51 >45 Elbow ? 8.2 9.3 10.8 100.0 Right Ulnar Motor (Abd Dig Minimi) Wrist ? 3.9 <3.0 9.0 >5 10.7 100.0 B Elbow Wrist 3.6 18.0 50 >45 B Elbow ? 7.5 8.1 9.7 90.0 A Elbow B Elbow 1.5 10.0 67 >45 A Elbow ? 9.0 8.1 9.6 90.0 Right Ulnar Motor (FDI) Wrist ? 5.2 <3.0 8.5 >5 8.6 100.0 B Elbow Wrist 3.8 18.0 47 >45 B Elbow ? 9.0 6.9 7.4 81.2 A Elbow B Elbow 1.6 10.0 63 >45 A Elbow ? 10.6 6.9 7.3 81.2 EMG ?Side Muscle Nerve Root Ins Act Fibs Psw Amp Dur Poly Recrt Int Pat Comment Right 1stDorInt Ulnar C8-T1 Nml Nml Nml Nml Nml 0 Nml Complete Right Biceps Musculocut C5-6 Nml Nml Nml Nml Nml 0 Nml Complete Right Triceps Radial C6-7-8 Nml Nml Nml Nml Nml 0 Nml Complete Right Deltoid Axillary C5-6 Nml Nml Nml Nml Nml 0 Nml Complete Right FlexCarpiUln Ulnar C8,T1 Nml Nml Nml Nml Nml 0 Nml Complete Paraspinal EMG ?Side Muscle Nerve Root Ins Act Fibs Psw Comment Right Cervical Upper Rami Nml Nml Nml Right Cervical Mid Rami Nml Nml Nml Right Cervical Lower Rami Incr 2+ 2+ CRDs FINDINGS: Right median motor nerve showed prolonged distal latency, normal amplitude and normal conduction velocity. Right ulnar motor nerve, recording ADM, showed prolonged distal latency, normal amplitude and normal conduction velocity. No conduction block across elbow. Right ulnar motor nerve, recording FDI, showed prolonged distal latency, normal amplitude and normal conduction velocity. Right median sensory nerve showed prolonged peak latency. Right ulnar sensory nerve showed prolonged peak latency and small amplitude. Right radial sensory nerve was within normal. Concentric needle EMG was performed in selected muscles of the right upper extremity and cervical paraspinals. Study revealed signs of electric abnormalities as shown in the table above. No denervation seen in right upper extremity. CRDs seen on right lower cervical paraspinals. IMPRESSION: 1. This is an abnormal study. 2. There is electrodiagnostic evidence for right lower cervical chronic radiculopathy. 3. There are also findings suggestive of right median neuropathy at the wrist consistent with Carpal Tunnel Syndrome; and right ulnar neuropathy that is poorly localizable but suspect at the elbow. CLINICAL COMMENT: Cervical MRI images reviewed, cord compression and possible myelomalacia noted. Thank you for your kind referral. Barbara Sheets MD, MANPREET Board Certified, [place] [employer] and [employer] (ABPMR) Board Certified, [place] [employer] Electrodiagnostic [employer] (ABEM) [place] [id number] [facility]
== END 2024-09-26 13:21 | disposition home or self-care (01) ==
LOC: HO.NEURO 13:20
PROVIDERS: PCP Family Medicine; Visit Provider Psychiatry & Neurology Neurology
DX: R20.0 Anesthesia of skin (principal); R20.2 Paresthesia of skin
CPT/HCPCS: 95886; 95909

== ENCOUNTER → 2024-09-26 13:23 | Outpatient (BNV) | payer OTHER, SELFPAY | PROVIDERS: PCP Family Medicine; Visit Provider Physical Medicine & Rehabilitation | DX: G56.01 Carpal tunnel syndrome, right upper limb (principal); G56.21 Lesion of ulnar nerve, right upper limb | CPT/HCPCS: 95886; 95909 ==

== ENCOUNTER 2024-10-02 11:37 | Outpatient (AMB) | payer OTHER, SELFPAY ==
--- NOTE | 2024-10-02 11:38 | MHC.OFFVIS ---
Vital Signs 10/02/24 11:41 Height 5 ft 6 in Weight 162 lb 4 oz BMI 26.2 Intake Visit Reasons: S/P EUA, exc. of anal polyp Intake Note: This patient presents for post-op status post Exam under anesthesia, excision of an anal polyp. Pt c/o; no concerns. 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 of anal polyp: Details: He had undergone excision of an anal polyp under anesthesia last 09/19/2024. He tolerated the procedure well. He currently denies significant complaints. [facility] Medical History Numbness and tingling in right hand Anal polyp Alcohol use disorder, mild, in early remission, abuse Hypertension, essential, benign COPD (chronic obstructive pulmonary disease) RADHA (iron deficiency anemia) Recurrent epistaxis Positive ANDERS (antinuclear antibody) Polyarthralgia Mild recurrent major depression Nicotine dependence, cigarettes, uncomplicated CORNEJO (dyspnea on exertion) Bilateral leg paresthesia Paresthesias in right hand Right hand pain Proximal leg weakness Lumbar pain with radiation down both legs Bilateral hip pain Surgical History Hx of surgical procedure (~09/19/24) H/O eye surgery History of ankle surgery Family History Mother Heart disease Breast cancer Father Stroke Deep vein thrombosis Paternal Grandfather Stroke Brother Lung cancer Brother Tumor cells, malignant Social History Housing: House Housing Other:: rents Are you a primary student career development specialist to a significant other at home: No Do you presently have visiting nurse or other home services: No Comment: medicated Patient Tobacco Use Status: Current everyday Tobacco user Tobacco use type: Cigarette Cigarettes Per Day: 12 Years Smoked: onset 15yo, 1ppd x 49yrs, now 1/2ppd - 45pyh e-Cigarette/Vaping Use: Never Used Second Hand Smoke Exposure: Yes (past ) service: No Current occupational status: employed 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 [employer] Current occupational exposures/hazards: Yes (ladder use) Cognitive needs: No Hearing needs: Yes (hearing loss ) Vision needs: Yes (glasses) Review of Systems Const Denies chills and Denies fever(s) Card Denies dyspnea Resp Denies dyspnea GI Denies hematochezia Physical Exam Const General: comfortable and no acute distress Resp Effort & Inspection: normal respiratory effort GI Other: Rectal exam- excision site well healed, not infected, no induration, discharge Palpation (GI): Soft to palpation, Firmness to palpation present (GI) and Tenderness to palpation present (GI) Assessment & Plan Assessment & Plan (1) Anal polyp: Code(s): K62.0 - Anal polyp Category: Medical Plan: Status post excision. His path report shows a fibroepithelial polyp. I explained to him the benign nature of this pathology. He is doing well postoperatively. He can follow up on a p.r.n. basis. He does mentioned that he is scheduled for back and neck surgery this December,. Coding Level of Care Code Global (01505) Diagnoses Anal polyp K62.0
[2024-10-02 11:41] VITALS: BMI 26.2
== END 2024-10-02 11:49 | disposition home or self-care (01) ==
PROVIDERS: PCP Family Medicine; Visit Provider Surgery
DX: K62.0 Anal polyp (principal)
CPT/HCPCS: 99024

== ENCOUNTER → 2024-10-02 11:37 | Outpatient (BNVA) | payer MEDICAID, OTHER, SELFPAY | PROVIDERS: PCP Family Medicine; Visit Provider Surgery | DX: K62.0 Anal polyp (principal) | CPT/HCPCS: 99212 ==

== ENCOUNTER 2024-12-02 07:54 | Outpatient (AMB) | payer OTHER, SELFPAY ==
--- NOTE | 2024-12-02 08:10 | A.OFFVIS_ITS ---
Vital Signs 12/02/24 08:12 Height 5 ft 6 in Weight 160 lb BMI 25.8 BP 160/90 H Pulse 87 Pulse Source Pulse Oximeter Pulse Oximetry (%) 93 Oxygen Delivery Method Room Air Intake Visit Reasons: follow up Paresthesia of skin Intake Note: Patient presents for follow up paresthesia. 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 It started 2-3 years ago and has worsened since then. He was seen at [facility] 2 weeks ago and was presumed that the spinal stenosis was causing these symptoms. We reviewed MRI C-spine, L-spine and xray imaginings. He does have spondylosis of the Lumbar spine, and stenosis of the cervical spine with osteophytes and degenerative disorder C2, C3, C4, and C5. 10/2024-EMG shows median and ulnar nerve neuropathy with Carpal Tunnel Syndrome and R. Cervical radiculopathy. Today he c/o neck, back and r. hand pain, he is scheduled for a discectomy cervical spine C5-C6 on December 18 at [facility] [place]. Lozada. He doesn't sleep well due to the pain and has fragmented sleep, with excessive daytime sleepiness. His numbness is mainly in thighs and calves bilaterally. He also has numbness and weakness of right hand with pain and on and off. He has urinary urgency and incontinence occasionally. He has trouble waking on and off and uses a cane occasionally as if he is off balance. He has h/o AUD since the age of 40, drinks several drinks a week- 4-5 drinks, 3-4 days a week, whiskey or beer. He is smoking 1 pack a day when stressed or anxious. His last fall was in May 2024. Mood is anxious, memory is stable, diet is poor. [facility] Medical History Numbness and tingling in right hand Anal polyp Alcohol use disorder, mild, in early remission, abuse Hypertension, essential, benign COPD (chronic obstructive pulmonary disease) RADHA (iron deficiency anemia) Recurrent epistaxis Positive ANDERS (antinuclear antibody) Polyarthralgia Mild recurrent major depression Nicotine dependence, cigarettes, uncomplicated CORNEJO (dyspnea on exertion) Bilateral leg paresthesia Paresthesias in right hand Right hand pain Proximal leg weakness Lumbar pain with radiation down both legs Bilateral hip pain Surgical History Hx of surgical procedure (~09/19/24) H/O eye surgery History of ankle surgery Family History Mother Heart disease Breast cancer Father Stroke Deep vein thrombosis Paternal Grandfather Stroke Brother Lung cancer Brother Tumor cells, malignant Social History Housing: House Housing Other:: rents Are you a primary complex care nurse practitioner to a significant other at home: No Do you presently have visiting nurse or other home services: No Comment: medicated Patient Tobacco Use Status: Current everyday Tobacco user Tobacco use type: Cigarette Cigarettes Per Day: 12 Years Smoked: onset 15yo, 1ppd x 49yrs, now 1/2ppd - 45pyh e-Cigarette/Vaping Use: Never Used Second Hand Smoke Exposure: Yes (past ) service: No Current occupational status: employed 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 [employer] Current occupational exposures/hazards: Yes (ladder use) Cognitive needs: No Hearing needs: Yes (hearing loss ) Vision needs: Yes (glasses) Review of Systems Const All systems reviewed & are unremarkable except as noted in HPI and below Physical Exam Vital Signs: Last Vital Signs Pulse 87 12/02/24 08:12 BP 160/90 H 12/02/24 08:12 Pulse Ox 93 12/02/24 08:12 Oxygen Delivery Method Room Air 12/02/24 08:12 BMI result Body Mass Index 25.8 Const General: cooperative, comfortable and no acute distress Nutritional Appearance: average body habitus Orientation/consciousness: patient oriented x3 Eyes Pupils: Equal, round and reactive pupils present Neck Neck: Yes full ROM and Yes supple Neuro General: patient oriented x3, tone normal and moves all extremities Cranial nerves: Yes Facial sensation intact/muscles of mastication intact, Yes Equal, round and reactive pupils present, Yes Bilaterally intact EOM present, Yes Nystagmus not present, Yes Normal facial strength present and Yes Midline tongue present Cognition (Neuro): normal cognition Gait exam (Neuro): Antalgic gait present Motor exam (neuro): 5/5 motor strength present throughout and Normal motor muscle tone present throughout Deep tendon reflexes (DTR's): Right triceps reflex intensity grade: 3+, Left triceps reflex intensity grade: 3+, Rt Biceps (C5, C6): 3+, Left biceps reflex intensity grade: 3+, Right brachioradialis reflex intensity grade: 3+, Left brachioradialis reflex intensity grade: 3+, Right patellar reflex intensity grade: 3+ and Left patellar reflex intensity grade: 3+ Coordination: ndpeyn-in-umif test normal Results Reviewed Results Reviewed: IMPRESSION: Multilevel cervical spondylosis, C3 C7 resulting in cord compression with cord edema and or myelopathy at C5-6, similar findings without cord edema and or myelopathy at C6-7. IMPRESSION: Multilevel lumbar spondylosis resulting in central spinal canal and bilateral neuroforamina stenosis compressing the neural elements of the thecal sac and the exiting nerve roots from L2-3 to L5-S1 more conspicuous at L3-4 and L4-5 levels. Osteopenia versus osteoporosis. Lymphoproliferative disorder seems less likely. [id number] IMPRESSION: 1. This is an abnormal study. 2. There is electrodiagnostic evidence for right lower cervical chronic radiculopathy. 3. There are also findings suggestive of right median neuropathy at the wrist consistent with Carpal Tunnel Syndrome; and right ulnar neuropathy that is poorly localizable but suspect at the elbow. CLINICAL COMMENT: Cervical MRI images reviewed, cord compression and possible myelomalacia noted. Assessment & Plan Assessment & Plan (1) Numbness and tingling in right hand: Comment: ? carpal tunnel Code(s): R20.0 - Anesthesia of skin; R20.2 - Paresthesia of skin Category: Medical (2) Spinal stenosis: Code(s): M48.00 - Spinal stenosis, site unspecified Category: Medical Qualifiers: Spinal region: lumbar Neurogenic claudication status: with neurogenic claudication Qualified Code(s): M48.062 - Spinal stenosis, lumbar region with neurogenic claudication (3) Fatigue due to sleep pattern disturbance: Code(s): R53.83 - Other fatigue; G47.9 - Sleep disorder, unspecified Category: Medical (4) Alcohol use disorder, mild, in early remission, abuse: Code(s): F10.11 - Alcohol abuse, in remission Category: Medical (5) Difficulty balancing: Code(s): R29.818 - Other symptoms and signs involving the nervous system Category: Medical (6) Cervical radiculopathy at C5: Code(s): M54.12 - Radiculopathy, cervical region Category: Medical (7) Acute carpal tunnel syndrome of right wrist: Code(s): G56.01 - Carpal tunnel syndrome, right upper limb Category: Medical (8) Ulnar neuropathy at elbow of left upper extremity: Code(s): G56.22 - Lesion of ulnar nerve, left upper limb Category: Medical Plan HST Sleep apnea evalution for fatigue and sleep difficulties. Orthopedic Hand eval and treat CTS per EMG/ NCS (reveiwed study with patient) r. hand median Nerve and Ulnar N. neuropathy at the elbow, and Cervical Radiculopathy, he declines PT today. MRI of Cervical Spine and Lumbar Spine Reviewed with Patient today. Cervical multiple levels stenosis and degenerative disease C3-C4- C5-C6, Lumbar Spondylosis, and Stensosis he is scheduled for Surgical procedure December 18. Labs will check for deficiencies. Start B1 200mg PO daily for alcohol use disorder related issues with gait and balance Start magnesium 400mg PO daily Orders: Orders Complete Blood Count no Diff Today G47.9 - Sleep disorder, unspecified, R53.83 - Other fatigue Comprehensive Met. Panel Today G47.9 - Sleep disorder, unspecified, R53.83 - Other fatigue Lipid Panel with Reflex Today G47.9 - Sleep disorder, unspecified, R53.83 - Other fatigue Methylmalonic Acid Today G47.9 - Sleep disorder, unspecified, R53.83 - Other fatigue RT home sleep study Today G47.19 - Other hypersomnia Ferritin Today G47.9 - Sleep disorder, unspecified, R53.83 - Other fatigue Hemoglobin A1c Today G47.9 - Sleep disorder, unspecified, R53.83 - Other fatigue Homocysteine Today G47.9 - Sleep disorder, unspecified, R53.83 - Other fatigue Vitamin B12 and Folate Today G47.9 - Sleep disorder, unspecified, R53.83 - Other fatigue TSH reflex Free T4 Today G47.9 - Sleep disorder, unspecified, R53.83 - Other fatigue Vitamin D 25-OH Total Today G47.9 - Sleep disorder, unspecified, R53.83 - Other fatigue Referrals Orthopedics Referral R20.0 - Anesthesia of skin, R20.2 - Paresthesia of skin Patient Instructions: Sleep Hygiene provided: set a scheduled bedtime and wake time to help regulate the circadian rhythm and balance the release of pituitary hormones. Sleep in a dark room, temperatures below 68 degrees, and no devices n bed. Limit caffeinated products 6 hours prior to bed, and limit fluids 2-4 hours prior to bed. Gentle night yoga, diffusing essential oils, and playing soft music can be relaxing. HST sleep apnea evaluation due to sleep difficulties Ortho referral for CTS and evaluation for corticosteroid shots, wearing a brace for ulnar /median nerve parasthesias. Cervical Spine Radiculopathy declines PT today. Coding Level of Care Code Est Pt Level 4 (44403) Complex EM visit Add On G2211 Diagnoses Numbness and tingling in right hand R20.0; R20.2 Spinal stenosis of lumbar region with neurogenic claudication M48.062 Spinal region: lumbar Neurogenic claudication status: with neurogenic claudication Fatigue due to sleep pattern disturbance R53.83; G47.9 Alcohol use disorder, mild, in early remission, abuse F10.11 Difficulty balancing R29.818 Cervical radiculopathy at C5 M54.12 Acute carpal tunnel syndrome of right wrist G56.01 Ulnar neuropathy at elbow of left upper extremity G56.22 Time Spent (min) 40
[2024-12-02 08:12] VITALS: BP 160/90; PULSE 87; O2SAT 93; BMI 25.8
== END 2024-12-02 09:07 | disposition home or self-care (01) ==
LOC: HO.HSMS 07:55
PROVIDERS: PCP Family Medicine; Visit Provider Physician Assistant Medical
DX: R20.0 Anesthesia of skin (principal); R20.2 Paresthesia of skin; M48.062 Spinal stenosis, lumbar region with neurogenic claudication; R53.83 Other fatigue; G47.9 Sleep disorder, unspecified; F10.11 Alcohol abuse, in remission; R29.818 Other symptoms and signs involving the nervous system; M54.12 Radiculopathy, cervical region; G56.01 Carpal tunnel syndrome, right upper limb; G56.22 Lesion of ulnar nerve, left upper limb
CPT/HCPCS: 99214

== ENCOUNTER → 2024-12-02 07:54 | Outpatient (BNVA) | payer OTHER, SELFPAY | PROVIDERS: PCP Family Medicine; Visit Provider Physician Assistant Medical | DX: R20.0 Anesthesia of skin (principal); R20.2 Paresthesia of skin; M48.062 Spinal stenosis, lumbar region with neurogenic claudication; R53.83 Other fatigue; G47.9 Sleep disorder, unspecified; F10.11 Alcohol abuse, in remission; R29.818 Other symptoms and signs involving the nervous system; M54.12 Radiculopathy, cervical region; G56.01 Carpal tunnel syndrome, right upper limb; G56.22 Lesion of ulnar nerve, left upper limb | CPT/HCPCS: 99212 ==

== ENCOUNTER 2024-12-11 08:35 | Outpatient (REF) | payer OTHER, SELFPAY ==
[2024-12-11 09:50] LABS: MANUAL DIFF FLAG NO
[2024-12-11 10:32] LABS: Estimated Average Glucose 97 mg/dL; Hemoglobin A1C 110.0827 umol/L; Total Hemoglobin (HGBA1C) 3571.6608 umol/L
[2024-12-11 10:36] LABS: Basophils Percent Auto 0.3 % (0-2); Eosinophils Absolute Auto 0.4 X10*3/uL (0.0-0.4); Eosinophils Percent Auto 3.1 % (0-4); Hemoglobin 13.5 g/dl (14.0-18.0); Imm Gran Abs Auto 0.06 X10*3/uL (0.00-0.03); Imm Gran Pct Auto 0.5 % (0.0-0.4); Lymphocytes Absolute Auto 1.2 X10*3/uL (1.2-4.9); Lymphocytes Percent Auto 10.2 % (20-40); Mean Corpuscular HGB Conc 34.6 g/dl (31.0-36.0); Mean Corpuscular Hemoglobin 34.5 pg (27.0-33.0); Mean Corpuscular Volume 99.7 fL (80.0-98.0); Mean Platelet Volume 10.4 fL (9.4-12.4); Monocytes Absolute Auto 0.9 X10*3/uL (0.1-1.2); Monocytes Percent Auto 7.3 % (2-11); Neutrophils Absolute Auto 9.5 x10*3/uL (2.0-8.3); Neutrophils Percent Auto 78.6 % (45-73); Platelet Count 249 X10*3/uL (160-400); Red Blood Count 3.91 X10*6/uL (4.60-5.80); Red Cell Distribution Width 13.1 % (11.0-16.0); White Blood Count 12.1 X10*3/uL (4.8-10.8)
[2024-12-11 10:38] LABS: Appearance Urine Clear; Color Urine Yellow; Glucose Urine UA Negative (Negative); Leukocyte Esterase Urine Small (1+) (Negative); Nitrite Urine Negative (Negative); UMIC TRIGGER UA YES; Urine Blood Negative (Negative); Urine Ketones Negative (Negative); Urine Protein Negative (Neg-Trace)
[2024-12-11 10:46] LABS: Bacteria Urine None Seen (None Seen); Hyaline Casts Urine 0-2 /LPF (0-2); RBC Urine 0-2 /HPF (0-2); Squamous Epithelial Cell Urine 0-2 /HPF (0-2)
[2024-12-11 11:25] LABS: Alanine Aminotransferase 12 U/L (0-40); Albumin Level 4.3 g/dL (3.5-5.0); Alkaline Phosphatase 81 U/L (39-117); Anion Gap 13 (12-20); Aspartate Amino Transferase 20 U/L (5-37); Bilirubin Total 0.6 mg/dL (0.0-1.0); Blood Urea Nitrogen 13 mg/dL (9-16); Calcium 9.7 mg/dL (8.4-10.2); Carbon Dioxide 28 mmol/L (22-29); Chloride 103 mmol/L (96-108); Cholesterol 220 mg/dL (<200); Estimated Glomerular Filt Rate > 60; Glucose Fasting 116 mg/dL (60-99); Glucose Random 116 mg/dL (60-115); HDL Cholesterol 82 mg/dL (>40); LDL Cholesterol Calculated 110 mg/dL (<100); Potassium 4.3 mmol/L (3.3-5.1); Sodium 140 mmol/L (135-145); Total Protein 7.1 g/dL (6.5-8.0); Triglycerides 144 mg/dL (<150)
[2024-12-11 11:25] LABS: Creatinine Urine 39.24 mg/dL; Microalbum/Creatinine Ratio Ur 20.3 ug/mg cr (<30)
[2024-12-11 11:30] LABS: Prostate Specific Antigen Scr 1.46 ng/mL (<0.05-4.0)
[2024-12-11 11:34] LABS: Ferritin 74 ng/mL (20-250); Vitamin D 25-OH Total 49.9 ng/mL (>30)
[2024-12-11 11:44] LABS: Folate 15.4 ng/mL (> or = 4.0); Vitamin B12 743 pg/mL (200-900)
[2024-12-11 12:18] LABS: Reflex LDLD? No
[2024-12-15 04:44] LABS: Methylmalonic Acid 228 nmol/L (69-390)
[2024-12-15 19:08] LABS: Homocysteine 17.2 umol/L (<11.4)
== END 2024-12-11 08:36 | disposition home or self-care (01) ==
LOC: HO.WFDLDS 08:35
PROVIDERS: Physician Assistant; Absent Provider Neurological Surgery; PCP Family Medicine; Referring Provider Physician Assistant Medical; Visit Provider Family Medicine
DX: Z00.00 Encounter for general adult medical examination without abnormal findings (principal); R53.83 Other fatigue; G47.9 Sleep disorder, unspecified; Z12.5 Encounter for screening for malignant neoplasm of prostate; I10 Essential (primary) hypertension; R73.01 Impaired fasting glucose
CPT/HCPCS: 36415; 80053; 80061; 81001; 82043; 82306; 82570; 82607; 82728; 82746; 83036; 83090; 83921; 84153; 84443; 85025; 85027

== ENCOUNTER 2024-12-16 08:47 | Outpatient (AMB) | payer OTHER, SELFPAY ==
--- NOTE | 2024-12-16 09:08 | A.OFFPC_ITS ---
Vital Signs 12/16/24 09:16 Height 5 ft 6 in Weight 165 lb 2 oz BMI 26.6 BP 144/80 H Blood Pressure Location Lt brachial Position Sitting Respiration 16 Pulse 75 Pulse Source Pulse Oximeter Temp 99.5 F Temp Source Oral Pulse Oximetry (%) 97 Oxygen Delivery Method Room Air Intake Visit Reasons: CPE with f/u labs and health maint. 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 Allergies No Known Allergies Allergy (Verified 12/16/24 09:12) Medication List - Last Reconciled 12/16/24 by Cuba Bell MD albuterol sulfate 90 mcg/actuation (Ventolin HFA) 1 puff inhalation Q4-6H 30 days amlodipine 5 mg PO DAILY bupropion HCl XL (Wellbutrin XL) 150 mg PO QAM cephalexin 500 mg PO Q12H 10 days folic acid 1 mg PO DAILY losartan 50 mg PO DAILY 90 days metoprolol succinate ER 25 mg PO DAILY 90 days psyllium seed (sugar) (Metamucil (sugar) oral powder) 1 tbsp PO DAILY PRN tiotropium bromide (Spiriva with HandiHaler) 1 cap inhalation DAILY Tobacco use date assessed: 06/30/24 Fall risk assessment: 2 + Falls in past year Last assessed Fall Risk: 12/16/24 Dental Screening Dental Screen Date: 12/16/24 Did you have a dental visit in the last 12 months?: No Did you have a dental problem in the last 6 months where you did not have access to dental care?: No Was dental information given to patient?: No HPI CPE with f/u labs and health maint. HPI Details 64 y/o male presents for a CPE with f/u labs and health maintenance. Labs drawn 12/11/24. Reviewed labs with pt. Ongoing mild anemia. Elevated fasting glucose of 116. A1c 5.0%. Triglycerides 144. TC 220. LDL 110. HDL 82. BP today 144/80, 75p. Has complaints of L plantar wart with early infection. [facility] Medical History Constipation Numbness History of blood transfusion (~2023) Numbness and tingling in right hand Anal polyp Nicotine dependence, cigarettes, uncomplicated Positive ANDERS (antinuclear antibody) Polyarthralgia Mild recurrent major depression CORNEJO (dyspnea on exertion) Bilateral leg paresthesia Paresthesias in right hand Right hand pain Proximal leg weakness Lumbar pain with radiation down both legs Bilateral hip pain Alcohol use disorder, mild, in early remission, abuse RADHA (iron deficiency anemia) Recurrent epistaxis COPD (chronic obstructive pulmonary disease) Hypertension, essential, benign Surgical History Hx of colonoscopy (08/2024) History of esophagogastroduodenoscopy (EGD) (08/2024) Hx of surgical procedure (09/19/24) H/O eye surgery History of ankle surgery Family History Mother Heart disease Breast cancer Father Stroke Deep vein thrombosis Paternal Grandfather Stroke Brother Lung cancer Brother Tumor cells, malignant Social History Household Members: None Housing: Apartment Housing Other:: rents Are you a primary pet care attendant to a significant other at home: No Do you presently have visiting nurse or other home services: No Comment: medicated Patient Tobacco Use Status: Current everyday Tobacco user Tobacco use type: Cigarette Cigarettes Per Day: 15 Years Smoked: onset 15yo, 1ppd x 49yrs, now 3/4 ppd - 45pyh e-Cigarette/Vaping Use: Never Used Second Hand Smoke Exposure: Yes (past ) Substance Use Type: Marijuana service: No Current occupational status: employed 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 1. Little interest or pleasure in doing things: several days 2. Feeling down, depressed, or hopeless: several days 3. Trouble falling or staying asleep, or sleeping too much: several days 4. Feeling tired or having little energy: more than half the days 5. Poor appetite or overeating: several days 6. Feeling bad about yourself - or that you are a failure or have let yourself or your family down: several days 7. Trouble concentrating on things, such as reading the newspaper or watching television: several days 8. Moving or speaking so slowly that other people could have noticed. Or the opposite - being so fidgety or restless that you have been moving around a lot more than usual: not at all 9. Thoughts that you would be better off or of hurting yourself in some way: not at all Total score: 8 Depression Screening Interpretation: Positive Depression Screening Done: Yes 31522 - PHQ-9 Billing: Yes Source: Developed by Drs. Alexis Alexandra, Josefina Holt, Nolan Galicia and colleagues, with an educational vinod from [employer]. Thrive Questionnaire Date Thrive assessed: 12/16/24 I am a: Patient What is your living situation today?: I have a steady place to live Within the past 12 months, did the food you bought not last and you didn't have the money to get more?: Never true Within the past 12 months, did you worry whether your food would run out before you got money to buy more?: Never true Do you have trouble paying for medicines?: No Do you have trouble getting transportation to medical appointments?: No Do you have trouble paying your heating and electricity bill?: No Do you have trouble taking care of your child, family member or friend?: No Do you have trouble with day-to-day activities such as bathing, preparing meals, shopping, managing finances, etc.?: No Are you currently unemployed and looking for a job?: No Are you interested in more education?: No Please select the resources that you would like help with: None Currently or been in a relationship where the following occur: No concerns reported THRIVE Score: 0 AUDIT C Alcohol Use Questionnaire (AUDIT-C) 1. How often do you have a drink containing alcohol?: 2-3 times a week 2. How many drinks containing alcohol do you have on a typical day when you are drinking?: 3 or 4 3. How often do you have six or more drinks on one occasion?: Monthly Total Score: 6 Score Reviewed/Action Taken: Yes STEPHAN-7 AMB Questionnaire STEPHAN-7 Date STEPHAN - 7 assessed: 12/16/24 Feeling nervous, anxious, or on edge: 0 = Not at all Not being able to stop or control worryin = Not at all Worrying too much about different things: 1 = Several days Trouble relaxin = Several days Being so restless that it is hard to sit still: 0 = Not at all Becoming easily annoyed or irritable: 0 = Not at all Feeling afraid as if something awful might happen: 0 = Not at all Total STEPHAN-7 score (0-4 normal; 5-9 mild; 10-14 moderate; 15-21 severe): 2 Source: Developed by Drs. Alexis Alexandra, Josefina Holt, Nolan Galicia and colleagues, with an educational vinod from [employer]. STEPHAN-7 Assessment Billing STEPHAN-7 Assessment Tool: STEPHAN-7 Assessment 69801 Review of Systems Const Denies chills, Denies fatigue, Denies fever(s), Denies headache(s) and Denies weakness Eyes Denies change in vision ENT Denies dizziness and Denies headache(s) Card Denies dyspnea Resp Denies cough, Denies dyspnea, Denies wheezing and Denies other (shortness of breath) GI Denies abdominal pain, Denies melena, Denies hematochezia, Denies change in bowel habits, Denies dyspepsia and Denies nausea Denies hematuria and Denies dysuria Musc Denies numbness and Denies tingling Skin/Breast Denies rash, Denies unusual bruising and Denies wounds Neuro Denies dizziness, Denies headache(s), Denies numbness, Denies Sensory deficit (Neuro), Denies tingling and Denies weakness Psych Denies anxiety and Denies depression Endo Denies fatigue Silas/Lymph Denies easy bleeding and Denies easy bruising Aller/Immun Denies wheezing Physical exam (Primary Care) Vital Signs: Last Vital Signs Temp 99.5 F 12/16/24 09:16 Pulse 75 12/16/24 09:16 Resp 16 12/16/24 09:16 BP 144/80 H 12/16/24 09:16 Pulse Ox 97 12/16/24 09:16 Oxygen Delivery Method Room Air 12/16/24 09:16 BMI result Body Mass Index 26.6 Tobacco/Smoking Status: Tobacco use Status Tobacco use date assessed 06/30/24 12/16/24 09:10 Patient Tobacco Use Status Current everyday Tobacco 12/16/24 09:10 Tobacco use type Cigarette 12/16/24 09:10 e-Cigarette/Vaping Use Never Used 12/16/24 09:10 PHQ-9: PHQ-9 Score PHQ-9: Total score 8 12/16/24 09:24 Depression Screening Interpretation: Positive Thrive Assessment: Date of Thrive Assessment Date Thrive assessed 12/16/24 12/16/24 09:20 Currently or been in a relationship where the following occur: No concerns reported Const General: well developed; No acute distress Nutritional Appearance: well nourished Orientation/consciousness: patient oriented x3 HENMT Head: Yes normocephalic and Yes atraumatic Ears: hearing grossly normal bilaterally and TM's normal bilaterally General nose exam: Normal external nose present and Normal nares present Mouth: Normal oral and palatal mucosa present and moist mucous membranes Teeth and gingiva: dentition normal Throat: Yes posterior oropharynx normal Eyes General: appearance normal, both eyes and all related structures Pupils: Equal, round and reactive pupils present EOM: EOMs intact bilaterally Neck Neck: Yes normal visual inspection, Yes no lymphadenopathy and Yes trachea midline Thyroid: Thyroid normal Carotids: no bruits Lymphatic: no lymphadenopathy noted Chest Chest palpation & inspection: normal inspection of the chest Resp Effort & Inspection: normal respiratory effort Auscultation: clear to auscultation bilaterally Cardio Rate: regular rate Rhythm: regular rhythm Heart sounds: S1 normal heart sound present, S2 normal heart sound present, no gallops, no murmurs and no rubs Bruits: no abdominal aortic bruits and no carotid bruits GI Palpation (GI): No Abdominal aortic bruit present, Soft to palpation, nontender, No hepatosplenomegaly present and No Rebound tenderness present Auscultation: normal bowel sounds General: Yes no CVA tenderness Back/Spine/Pelvis Back: no CVA tenderness Cervical Spine: cervical ROM normal and No Cervical spine tenderness Thoracic/Lumbar Spine: thoraco-lumbar ROM normal, No pain with thoraco-lumbar ROM, No thoracic spinal tenderness and No lumbar spinal tenderness Skin Lesions: no lesions Rashes: no rashes Trauma: no lacerations or abrasions Wounds: no wounds Nails: normal Neuro General: patient oriented x3 and gait normal Cranial nerves: Yes Equal, round and reactive pupils present Cognition (Neuro): normal cognition Gait exam (Neuro): Normal gait present Motor exam (neuro): 5/5 motor strength present throughout Sensory Exam: No Sensory deficit (Neuro) Deep tendon reflexes (DTR's): Right patellar reflex intensity grade: 2+ and Left patellar reflex intensity grade: 2+ Extrem General: Yes normal to inspection and No edema Psych Appearance: grossly normal Affect: normal affect Attitude: cooperative Thought process: Normal thought process present Coding Level of Care Code Est Pt Level 4 (64800) Diagnoses Hypertension, essential, benign I10 Elevated fasting glucose R73.01 Mild anemia D64.9 Foot pain M79.673 Infection of skin L08.9 Abnormal lung sounds R09.89 Smoker F17.200 Screening for prostate cancer Z12.5 Screening for colon cancer Z12.11 Adult general medical exam Z00.00 Additional Codes STEPHAN-7 Assessment Billing - STEPHAN-7 Assessment Tool: STEPHAN-7 Assessment [id number] ([id number]) PHQ-9 - 80061 - PHQ-9 Billing: Yes ([id number]) Assessment & Plan Assessment & Plan (1) Hypertension, essential, benign: Code(s): I10 - Essential (primary) hypertension Category: Medical Plan: Mildly?elevated. ?Goal?is?less?than 140/90 No?changes?to?his?blood?pressure?regimen?today. Will?recheck?at?visit (2) Elevated fasting glucose: Code(s): R73.01 - Impaired fasting glucose Category: Medical Plan: A1c?5.0%.??Normal?Range. Encouraged?diet?lower?in?sugars?and?starches (3) Mild anemia: Code(s): D64.9 - Anemia, unspecified Category: Medical Plan: Mild?anemia?persists?though?improved. Will?continue?to?monitor (4) Foot pain: Code(s): M79.673 - Pain in unspecified foot Category: Medical Plan: Large?plantar?wart?with?early?infection Start?cephalexin Referred?to?Podiatry (5) Infection of skin: Code(s): L08.9 - Local infection of the skin and subcutaneous tissue, unspecified Category: Medical Plan: As?above,?start?cephalexin?and?referred?to?Podiatry (6) Abnormal lung sounds: Code(s): R09.89 - Other specified symptoms and signs involving the circulatory and respiratory systems Category: Medical Plan: Abnormal?lung?sounds?at?left?lower?base?in?smoker. Also?has?elevated?white?count Check?chest?x-ray Already?starting?cephalexin?for infection?left?foot. (7) Smoker: Code(s): F17.200 - Nicotine dependence, unspecified, uncomplicated Category: Social Hx Plan: Encouraged?smoking?cessation Increased?Wellbutrin (8) Screening for prostate cancer: Code(s): Z12.5 - Encounter for screening for malignant neoplasm of prostate Category: Medical Plan: PSA?within?normal?range Will?continue?annual?screening (9) Screening for colon cancer: Code(s): Z12.11 - Encounter for screening for malignant neoplasm of colon Category: Medical Plan: Followed[place]by [facility] [place]?and?has?upcoming?appointment (10) Adult general medical exam: Code(s): Z00.00 - Encounter for general adult medical examination without abnormal findings Category: Medical Plan: 64-year-old?male?presents?for?an?extended?exam Encouraged?healthy?diet?with?active?lifestyle?exercise Orders: Orders XR chest 2V Today R05.9 - Cough, unspecified Referrals Podiatry Referral B07.0 - Plantar wart, L08.9 - Local infection of the skin and subcutaneous tissue, unspecified Medications: New mecobalamin (vitamin B12) 1,000 mcg PO DAILY 90 days 90 tabs 2RF cephalexin 500 mg PO Q12H 10 days 20 caps 0RF Changed From bupropion HCl XL (Wellbutrin XL) 150 mg PO QAM 90 tabs 0RF To bupropion HCl XL 300 mg (2 x 150 mg) PO QAM 30 days 60 tabs 2RF
[2024-12-16 09:16] VITALS: BP 144/80; PULSE 75; RESP 16; TEMP 37.5; O2SAT 97; BMI 26.6
== END 2024-12-16 10:01 | disposition home or self-care (01) ==
PROVIDERS: PCP Family Medicine; Visit Provider Family Medicine
DX: I10 Essential (primary) hypertension (principal); R73.01 Impaired fasting glucose; D64.9 Anemia, unspecified; M79.673 Pain in unspecified foot; L08.9 Local infection of the skin and subcutaneous tissue, unspecified; R09.89 Other specified symptoms and signs involving the circulatory and respiratory systems; F17.200 Nicotine dependence, unspecified, uncomplicated; Z12.5 Encounter for screening for malignant neoplasm of prostate; Z12.11 Encounter for screening for malignant neoplasm of colon; Z00.00 Encounter for general adult medical examination without abnormal findings

== ENCOUNTER 2024-12-16 08:47 | Outpatient (REF) | payer OTHER, SELFPAY ==
--- NOTE | ~2024-12-16 | XR_ITS ---
EXAMINATION: XR CHEST 2 VIEWS HISTORY: R05.9 - Cough, unspecified COMPARISON: Correlation is made with a chest CT dated 03/28/2024. FINDINGS: PA and lateral views of the chest are submitted. The lungs are expanded and clear. There is no pleural effusion, pneumothorax, or pulmonary vascular congestion. The heart is normal in size. The aorta is tortuous. There is degenerative disc disease of the spine. XR/XR chest 2V IMPRESSION: No acute cardiopulmonary abnormality. Electronically signed by: Alexis Hannon MD 12/16/2024 11:54 AM EDT
== END 2024-12-16 08:48 | disposition home or self-care (01) ==
LOC: HO.XRAY 08:47
PROVIDERS: PCP Family Medicine; Visit Provider Family Medicine
DX: Z00.01 Encounter for general adult medical examination with abnormal findings (principal); I10 Essential (primary) hypertension; R05.9 Cough, unspecified; R73.01 Impaired fasting glucose; D64.9 Anemia, unspecified; M79.673 Pain in unspecified foot; L08.9 Local infection of the skin and subcutaneous tissue, unspecified; R09.89 Other specified symptoms and signs involving the circulatory and respiratory systems; F17.200 Nicotine dependence, unspecified, uncomplicated; Z71.6 Tobacco abuse counseling
CPT/HCPCS: 71046; 96127; 99212

== ENCOUNTER → 2024-12-16 10:38 | Outpatient (BNV) | payer OTHER, SELFPAY | PROVIDERS: PCP Family Medicine; Visit Provider Radiology Diagnostic Radiology | DX: R05.9 Cough, unspecified (principal) | CPT/HCPCS: 71046 ==

== ENCOUNTER 2024-12-17 11:12 | Outpatient (AMB) | payer OTHER, SELFPAY ==
--- NOTE | 2024-12-17 11:17 | A.SPINEOV_ITS ---
Intake Visit Reasons: Discuss surgery Sx booked 12/18 Intake Note: Mr. Tellez is here today to Discuss surgery. Deaf/Hard Of Hearing Specialist Required: No Allergies No Known Allergies Allergy (Verified 12/17/24 11:17) Assessment & Plan Assessment & Plan (1) Cervical arthritis with myelopathy: Code(s): M47.12 - Other spondylosis with myelopathy, cervical region Category: Medical Plan Labeled 2024, I saw for preoperative visit Logan Tellez to discuss his upcoming C5-6 anterior diskectomy and fusion. We discuss procedure and expected postoperative course. He mentioned that he has a cough without fever. A recent chest x-ray is clear. He mentioned that his bupropion dose was increased yesterday, which has no effect on the surgery. All questions were answered satisfactorily. The surgery will go as planned for December 18. I spent 20 minutes in his consult answering questions Musa Lozada MD, PhD Spine Fellowship Trained Neurosurgeon Director, [facility] Coding Level of Care Code Est Pt Level 2 (68195) Diagnoses Cervical arthritis with myelopathy M47.12
== END 2024-12-17 11:49 | disposition home or self-care (01) ==
LOC: HO.HNS 11:13
PROVIDERS: PCP Family Medicine; Visit Provider Neurological Surgery
DX: M47.12 Other spondylosis with myelopathy, cervical region (principal)
CPT/HCPCS: 99212

== ENCOUNTER → 2024-12-17 11:12 | Outpatient (BNVA) | payer OTHER, SELFPAY | PROVIDERS: PCP Family Medicine; Visit Provider Neurological Surgery | DX: M47.12 Other spondylosis with myelopathy, cervical region (principal) | CPT/HCPCS: 99212 ==

== ENCOUNTER → 2024-12-18 05:39 | Day surgery (SDC) | payer OTHER, SELFPAY ==
[2024-12-05 10:22] VITALS: BMI 25.8
--- NOTE | 2024-12-17 09:40 | HO.ANESPROP2 ---
HPI - Anesthesia Eval Consult details Narrative: 64yo M for C5-6 Ant Cerv Discectomy w/ fusion ETOH use ds Smoker PMFSH Active Problems Active Problems: All Active Problems Smoker (Acute) Abnormal lung sounds (Acute) Plantar wart, left foot (Acute) Foot pain (Acute) Infection of skin (Acute) Elevated fasting glucose (Acute) Screening for prostate cancer (Acute) Screening for colon cancer (Acute) Adult general medical exam (Acute) Ulnar neuropathy at elbow of left upper extremity (Acute) Acute carpal tunnel syndrome of right wrist (Acute) Cervical radiculopathy at C5 (Acute) Difficulty balancing (Acute) Fatigue due to sleep pattern disturbance (Acute) Numbness of lower extremity (Acute) Spinal stenosis (Acute) Personal history of colonic polyps (Acute) Chest wall pain (Acute) Lower extremity weakness (Acute) Cough (Acute) Mild anemia (Acute) Lumbar radiculopathy (Acute) IFG (impaired fasting glucose) (Acute) Numbness and tingling in right hand (Acute) Anal polyp (Acute) Nicotine dependence, cigarettes, uncomplicated (Acute) Positive ANDERS (antinuclear antibody) (Acute) Polyarthralgia (Acute) Mild recurrent major depression (Acute) CORNEJO (dyspnea on exertion) (Acute) Bilateral leg paresthesia (Acute) Paresthesias in right hand (Acute) Right hand pain (Acute) Proximal leg weakness (Acute) Lumbar pain with radiation down both legs (Acute) Bilateral hip pain (Acute) Alcohol use disorder, mild, in early remission, abuse (Acute) RADHA (iron deficiency anemia) (Acute) Recurrent epistaxis (Acute) COPD (chronic obstructive pulmonary disease) (Acute) Hypertension, essential, benign (Acute) Past Medical History Medical History Constipation Numbness History of blood transfusion (~2023) Numbness and tingling in right hand Anal polyp Nicotine dependence, cigarettes, uncomplicated Positive ANDERS (antinuclear antibody) Polyarthralgia Mild recurrent major depression CORNEJO (dyspnea on exertion) Bilateral leg paresthesia Paresthesias in right hand Right hand pain Proximal leg weakness Lumbar pain with radiation down both legs Bilateral hip pain Alcohol use disorder, mild, in early remission, abuse RADHA (iron deficiency anemia) Recurrent epistaxis COPD (chronic obstructive pulmonary disease) Hypertension, essential, benign Family History Family History Mother Heart disease Breast cancer Father Stroke Deep vein thrombosis Paternal Grandfather Stroke Brother Lung cancer Brother Tumor cells, malignant Family history of problems with anesthesia: No Surgical History Surgical History Hx of colonoscopy (08/2024) History of esophagogastroduodenoscopy (EGD) (08/2024) Hx of surgical procedure (09/19/24) H/O eye surgery History of ankle surgery History of Problems with Anesthesia: No Social History Social History Household Members: None Housing: Apartment Housing Other:: rents Are you a primary healthcare social worker to a significant other at home: No Do you presently have visiting nurse or other home services: No Comment: medicated Patient Tobacco Use Status: Current everyday Tobacco user Tobacco use type: Cigarette Cigarettes Per Day: 15 Years Smoked: onset 15yo, 1ppd x 49yrs, now 3/4 ppd - 45pyh e-Cigarette/Vaping Use: Never Used Second Hand Smoke Exposure: Yes (past ) Substance Use Type: Marijuana service: No Current occupational status: employed 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 [employer] Current occupational exposures/hazards: Yes (ladder use) Cognitive needs: No Hearing needs: Yes (hearing loss ) Vision needs: Yes (glasses) Meds Allergies Allergy/AdvReac Type Severity Reaction Status Date / Time No Known Allergies Allergy Verified 12/16/24 09:12 Home Medications ?Medication ?Instructions ?Recorded ?Confirmed ?Last Taken ?Type psyllium seed (sugar) oral powder 1 tbsp PO DAILY PRN Constipation 03/11/24 12/16/24 Unknown History (Metamucil (sugar) oral powder) Exam Height,Weight and Vital Signs: Height 5 ft 6 in Weight 72.575 kg Pertinent Lab Results Pertinent Lab Results: Laboratory Tests 12/11/24 09:44 WBC 12.1 H Hgb 13.5 L Hct 39.0 L Plt Count 249 Sodium 140 Potassium 4.3 Chloride 103 Carbon Dioxide 28 BUN 13 Creatinine 0.83 Narrative Narrative: EKG 2023 NSR @ 82 Exercise Stress 2023 Protocol: SHABBIR Max HR: 130 BPM 82% of Pred: 157 BPM Max BP: 148/076 mmHG Max Work Load: 7.2 METS Exercise stress test exercise 6 in 12 sec of Shabbir protocol achieivng 83% MPHR, with mild to moderate SOB, no chest pains, with normotensive response to exercise, with borderline suboptimal heart rate without EJG chnages at achieved workload. Test reviewed with Dr. Alberto If further testing is required pharmacological stress test would be reccomended. Assessment and Plan Assessment Anesthesia Assessment: Chart Reviewed Final Anesthetic Review Family History of Problems with Anesthesia: No History of Problems with Anesthesia: No
[2024-12-18 06:10] VITALS: BMI 26.6
[2024-12-18 06:11] VITALS: BP 139/96; PULSE 78; RESP 16; TEMP 36.9; O2SAT 96
[2024-12-18] MEDS: methocarbamoL 750 MG TABLET PO (06:25)
[2024-12-18] MEDS: Gabapentin 300 MG CAPSULE PO (06:25)
[2024-12-18] MEDS: Lactated Ringers 1,000 ML 100 ML IVCONT (06:35)
--- NOTE | 2024-12-18 07:04 | MHC.SHP ---
Pre-Procedural Eval Section A - 24 Hr Update-Section A only Date of Service: 12/18/24 The patient is an INPATIENT: No Changes since office visit: No Cold of Flu in the past 2 weeks, No New Medical Problems, No Changes in Medication and No Patient answered all questions The patient has been examined within 24 hours of the surgical procedure. The History & Physical has been completed within 30 days and I have reviewed it.: No Section B - Complete if H&P > 30 days Chief Complaint: Anesthesia of skin,Paresthesia of skin Allergies: Allergies Allergy/AdvReac Type Severity Reaction Status Date / Time No Known Allergies Allergy Verified 12/18/24 06:36 Review of Systems Sugical H&P ROS: Negative: Constitution, Cardiovascular, Respiratory, Neurological, Psychiatric, Hem-Onc, Allergic/Immunologic, Gastrointestinal, Genitourinary, Musculoskeletal, Integumentary, Endocrine and Eyes/Ears/Nose/Throat Exam Surgical H&P Exam: Normal: HEENT, Normal: Heart, Normal: Lungs, Normal: Extremities, Normal: Abdomen, Normal: Skin and Normal: Neurological (awake, alert,oriented x 3 ) Plan Diagnosis/Plan: Unchanged C5-6 anterior cervical diskectomy and fusion Time Spent With Patient Time: Total time managing care of this patient today _5__ minutes.
[2024-12-18] MEDS: Albuterol Sulfate (0.083%) 2.5 MG/3 ML VIAL.NEB INHALE (07:09)
[2024-12-18 07:10] VITALS: PULSE 75; RESP 17; O2SAT 89
--- NOTE | 2024-12-18 07:35 | PC.NURSE ---
Respiratory called to bedside to administer preop albuterol updraft and Anesthesia at bedside evaluating patient. Explained to Dr. Tobar that the patient's O2 sats were OK on admission, however lung sounds were compromised and rhonchi throughout. Pt O2 sats had decreased while patient in bed to high 80's per respiratory. Dr. Lozada came to bedside while this is all going on and discussion between all concluded pt would be best to be postponed in order to optimize his breathing. Pt upset but understood that this would be best. Advised to call PCP to determine if a course of prednisone would be warranted per anesthesia. Called for patient's ride and discharged pt to home with instructions to call PCP and or plan coordinator.
== END ==
LOC: HO.SSS 05:40
PROVIDERS: PCP Family Medicine; Visit Provider Neurological Surgery
DX: R20.0 Anesthesia of skin (principal); R20.2 Paresthesia of skin; Z53.09 Procedure and treatment not carried out because of other contraindication; R09.02 Hypoxemia; R06.2 Wheezing
CPT/HCPCS: 94640; J0131; J0690

== ENCOUNTER 2024-12-26 09:18 | Outpatient (AMB) | payer OTHER, SELFPAY ==
--- NOTE | 2024-12-26 09:32 | A.OFFPC_ITS ---
Vital Signs 12/26/24 09:35 Height 5 ft 6 in Weight 162 lb 6 oz BMI 26.2 BP 130/70 Blood Pressure Location Rt brachial Position Sitting Respiration 16 Pulse 98 Pulse Source Pulse Oximeter Temp 98.1 F Temp Source Oral Pulse Oximetry (%) 98 Oxygen Delivery Method Room Air Intake Visit Reasons: respiratory eval Intake Note: patient is scheduled to review respiratory issues patient surgery was canceled due to o2 dropping during pre-op [facility] Required: No Allergies No Known Allergies Allergy (Verified 12/26/24 09:34) Medication List - Last Reconciled 12/26/24 by Cuba Bell MD albuterol sulfate 90 mcg/actuation (Ventolin HFA) 1 puff inhalation Q4-6H 30 days amlodipine 5 mg PO DAILY bupropion HCl XL 300 mg (2 x 150 mg) PO QAM 30 days cephalexin 500 mg PO Q12H 10 days folic acid 1 mg PO DAILY losartan 50 mg PO DAILY 90 days mecobalamin (vitamin B12) 1,000 mcg PO DAILY 90 days metoprolol succinate ER 25 mg PO DAILY 90 days psyllium seed (sugar) (Metamucil (sugar) oral powder) 1 tbsp PO DAILY PRN tiotropium bromide (Spiriva with HandiHaler) 1 cap inhalation DAILY Tobacco use date assessed: 06/30/24 Dental Screening Dental Screen Date: 12/16/24 HPI respiratory eval HPI Details 64 y/o male presents for a respiratory e valuation. Pt's 12/18 surgery cancelled due to patient's low O2 sat at the hospital. History?of?COPD?and?also?anemia Pulmonary function testing from 03/13/2024 showed mild obstruction with both air trapping and hyperinflation. No restriction. No decrease in diffusion. Findings consistent with obstructive lung disease. [facility] Medical History Constipation Numbness History of blood transfusion (~2023) Numbness and tingling in right hand Anal polyp Nicotine dependence, cigarettes, uncomplicated Positive ANDERS (antinuclear antibody) Polyarthralgia Mild recurrent major depression CORNEJO (dyspnea on exertion) Bilateral leg paresthesia Paresthesias in right hand Right hand pain Proximal leg weakness Lumbar pain with radiation down both legs Bilateral hip pain Alcohol use disorder, mild, in early remission, abuse RADHA (iron deficiency anemia) Recurrent epistaxis COPD (chronic obstructive pulmonary disease) Hypertension, essential, benign Surgical History Hx of colonoscopy (08/2024) History of esophagogastroduodenoscopy (EGD) (08/2024) Hx of surgical procedure (09/19/24) H/O eye surgery History of ankle surgery Family History Mother Heart disease Breast cancer Father Stroke Deep vein thrombosis Paternal Grandfather Stroke Brother Lung cancer Brother Tumor cells, malignant Social History Household Members: None Housing: Apartment Housing Other:: rents Are you a primary post acute care nurse practitioner to a significant other at home: No Do you presently have visiting nurse or other home services: No Comment: medicated Patient Tobacco Use Status: Current everyday Tobacco user Tobacco use type: Cigarette Cigarettes Per Day: 15 Years Smoked: onset 15yo, 1ppd x 49yrs, now 3/4 ppd - 45pyh e-Cigarette/Vaping Use: Never Used Second Hand Smoke Exposure: Yes (past ) Substance Use Type: Marijuana service: No Current occupational status: employed 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 [employer] Current occupational exposures/hazards: Yes (ladder use) Cognitive needs: No Hearing needs: Yes (hearing loss ) Vision needs: Yes (glasses) Questionnaire Thrive Questionnaire Date Thrive assessed: 12/10/24 I am a: Patient What is your living situation today?: I have a steady place to live Within the past 12 months, did the food you bought not last and you didn't have the money to get more?: Never true Within the past 12 months, did you worry whether your food would run out before you got money to buy more?: Never true Do you have trouble paying for medicines?: No Do you have trouble getting transportation to medical appointments?: No Do you have trouble paying your heating and electricity bill?: No Do you have trouble taking care of your child, family member or friend?: No Do you have trouble with day-to-day activities such as bathing, preparing meals, shopping, managing finances, etc.?: No Are you currently unemployed and looking for a job?: No Are you interested in more education?: No Please select the resources that you would like help with: None Currently or been in a relationship where the following occur: No concerns reported THRIVE Score: 0 STEPHAN-7 AMB Questionnaire STEPHAN-7 Date STEPHAN - 7 assessed: 12/16/24 Source: Developed by Drs. Alexis Alexandra, Josefina Holt, Nolan Galicia and colleagues, with an educational vinod from [employer]. Review of Systems Const Denies chills, Denies fatigue, Denies fever(s), Denies headache(s) and Denies weakness ENT Denies dizziness and Denies headache(s) Card Denies dyspnea Resp Denies cough, Denies dyspnea, Denies wheezing and Denies other (shortness of breath) Musc Denies numbness and Denies tingling Neuro Denies dizziness, Denies headache(s), Denies numbness, Denies tingling and Denies weakness Psych Denies anxiety and Denies depression Endo Denies fatigue Aller/Immun Denies wheezing Physical exam (Primary Care) Vital Signs: Last Vital Signs Temp 98.1 F 12/26/24 09:35 Pulse 98 12/26/24 09:35 Resp 16 12/26/24 09:35 BP 130/70 12/26/24 09:35 Pulse Ox 98 12/26/24 09:35 Oxygen Delivery Method Room Air 12/26/24 09:35 BMI result Body Mass Index 26.2 Tobacco/Smoking Status: Tobacco use Status Tobacco use date assessed 06/30/24 12/26/24 09:38 Patient Tobacco Use Status Current everyday Tobacco 12/26/24 09:38 Tobacco use type Cigarette 12/26/24 09:38 e-Cigarette/Vaping Use Never Used 12/26/24 09:38 Thrive Assessment: Date of Thrive Assessment Date Thrive assessed 12/10/24 12/26/24 09:38 Currently or been in a relationship where the following occur: No concerns reported Const General: well developed; No acute distress Nutritional Appearance: well nourished Orientation/consciousness: patient oriented x3 HENMT Head: Yes normocephalic and Yes atraumatic Eyes General: appearance normal, both eyes and all related structures Pupils: Equal, round and reactive pupils present EOM: EOMs intact bilaterally Resp Other: Mild, distant breath sounds but otherwise clear Effort & Inspection: normal respiratory effort Auscultation: clear to auscultation bilaterally Cardio Rate: regular rate Rhythm: regular rhythm Heart sounds: S1 normal heart sound present, S2 normal heart sound present, no gallops, no murmurs and no rubs Neuro General: patient oriented x3 and gait normal Cranial nerves: Yes Equal, round and reactive pupils present Psych Affect: normal affect Coding Level of Care Code Est Pt Level 3 (06161) Diagnoses Chronic obstructive pulmonary disease, unspecified COPD type J44.9 COPD type: unspecified COPD Hypoxia R09.02 Assessment & Plan Assessment & Plan (1) COPD (chronic obstructive pulmonary disease): Code(s): J44.9 - Chronic obstructive pulmonary disease, unspecified Category: Medical Qualifiers: COPD type: unspecified COPD Qualified Code(s): J44.9 - Chronic obstructive pulmonary disease, unspecified (2) Hypoxia: Code(s): R09.02 - Hypoxemia Category: Medical Plan 64-year-old?male?with?a?history?of?COPD?and mild?to?mode rate?anemia?presents?for?follow-up?after?C-spine?surgery?was canceled?due?hypoxia. His?hypoxia?appears?to?be?intermittent.??He?notes?that?his?oxygen?saturations?at ?home?with?a finger?SaO2?pulse?ox?meter?runs?between?90-100%. Oxygen?saturation?today?is?90%?on?room?air. Pulmonary function testing from 03/13/2024 showed mild obstruction with both air trapping and hyperinflation. No restriction. No decrease in diffusion. Findings consistent with obstructive lung disease. Recent?CBC?shows?only?mild?anemia?which?has?improved?from?prior?testing. This lab?work?was?drawn?about?a?week?prior?to his?desaturation?at?preop. Doubt?anemia?as?a?cause since?this?typically?would?have?to?be?rather?severe No?chest?pain?or?shortness?of?breath?and?lungs?are?clear?today?but?will?check?D- dimer?to?rule?out?thrombosis. Checking?echocardiogram Ultimately?this?is?likely?just?his COPD.??May?be?having?some?mild?mucus?plugging?or?mucus?secretions. He?is?taking?Spiriva?as?prescribed?uses?albuterol?when?has?symptoms. Will?add?an?inhaled?steroid?and?he?will?keep?a?log?of?his?oxygen?saturation. Will?follow- up?to?review?this?as?well?as?his?echocardiogram?the?1st?full?week?of?May. Orders: Orders Complete Blood Count Auto Diff Today D50.9 - Iron deficiency anemia, unspecified, Z00.00 - Encounter for general adult medical examination without abnormal findings Comprehensive Met. Panel Today D50.9 - Iron deficiency anemia, unspecified D Dimer High Sensitivity Today R09.02 - Hypoxemia CA echo transthoracic complete Today R09.02 - Hypoxemia Medications: New budesonide 180 mcg/actuation (Pulmicort Flexhaler) 2 inhalations inhalation BID 30 days 1 ea 1RF Changed From bupropion HCl XL 300 mg (2 x 150 mg) PO QAM 30 days 60 tabs 2RF To bupropion HCl XL 300 mg PO QAM 30 days 30 tabs 2RF
[2024-12-26 09:35] VITALS: BP 130/70; PULSE 98; RESP 16; TEMP 36.7; O2SAT 98; BMI 26.2
== END 2024-12-26 10:13 | disposition home or self-care (01) ==
LOC: HO.HMCFM 09:19
PROVIDERS: PCP Family Medicine; Visit Provider Family Medicine
DX: J44.9 Chronic obstructive pulmonary disease, unspecified (principal); R09.02 Hypoxemia

== ENCOUNTER → 2024-12-26 09:18 | Outpatient (BNVA) | payer OTHER, SELFPAY | PROVIDERS: PCP Family Medicine; Visit Provider Family Medicine | DX: J44.9 Chronic obstructive pulmonary disease, unspecified (principal); R09.02 Hypoxemia; D64.9 Anemia, unspecified | CPT/HCPCS: 99212 ==

== ENCOUNTER 2024-12-26 10:21 | Outpatient (REF) | payer OTHER, SELFPAY ==
[2024-12-26 14:08] LABS: MANUAL DIFF FLAG NO
[2024-12-26 14:12] LABS: Immature Retic Fraction 8.2 % (2.3-13.4); Retic HGB Equivalent 39.5 pg (30.0-35.0); Reticulocyte Percent 1.3 % (0.5-1.8); Reticulocytes Absolute 0.048 X10*6/uL (0.026-0.095)
[2024-12-26 14:13] LABS: Basophils Absolute Auto 0.1 X10*3/uL (0.0-0.2); Basophils Percent Auto 0.5 % (0-2); Eosinophils Absolute Auto 0.4 X10*3/uL (0.0-0.4); Hematocrit 37.3 % (42.0-52.0); Hemoglobin 12.8 g/dl (14.0-18.0); Imm Gran Abs Auto 0.09 X10*3/uL (0.00-0.03); Lymphocytes Absolute Auto 1.3 X10*3/uL (1.2-4.9); Lymphocytes Percent Auto 14.2 % (20-40); Mean Corpuscular HGB Conc 34.3 g/dl (31.0-36.0); Mean Corpuscular Hemoglobin 34.5 pg (27.0-33.0); Mean Corpuscular Volume 100.5 fL (80.0-98.0); Mean Platelet Volume 10.1 fL (9.4-12.4); Monocytes Absolute Auto 0.9 X10*3/uL (0.1-1.2); Monocytes Percent Auto 9.3 % (2-11); Neutrophils Absolute Auto 6.7 x10*3/uL (2.0-8.3); Platelet Count 227 X10*3/uL (160-400); Red Blood Count 3.71 X10*6/uL (4.60-5.80); Red Cell Distribution Width 13.1 % (11.0-16.0); White Blood Count 9.5 X10*3/uL (4.8-10.8)
[2024-12-26 14:29] LABS: Alanine Aminotransferase 21 U/L (0-40); Albumin Level 4.1 g/dL (3.5-5.0); Alkaline Phosphatase 79 U/L (39-117); Anion Gap 9 (12-20); Aspartate Amino Transferase 29 U/L (5-37); Bilirubin Total 0.6 mg/dL (0.0-1.0); Blood Urea Nitrogen 16 mg/dL (9-16); Calcium 9.4 mg/dL (8.4-10.2); Carbon Dioxide 30 mmol/L (22-29); Chloride 100 mmol/L (96-108); Estimated Glomerular Filt Rate > 60; Glucose Random 93 mg/dL (60-115); Iron 90 mcg/dL (45-160); Percent Iron Saturation 30 % (15-50); Sodium 135 mmol/L (135-145); Total Iron Binding Capacity 304 mcg/dL (228-428); Total Protein 6.8 g/dL (6.5-8.0); Unsaturated Iron Binding 214 ug/dL
[2024-12-26 14:59] LABS: D Dimer High Sensitivity < 150 NG/ML
== END 2024-12-26 10:22 | disposition home or self-care (01) ==
LOC: HO.WFDLDS 10:21
PROVIDERS: Visit Provider Family Medicine
DX: Z00.00 Encounter for general adult medical examination without abnormal findings (principal); D50.9 Iron deficiency anemia, unspecified; R09.02 Hypoxemia; D64.9 Anemia, unspecified
CPT/HCPCS: 36415; 80053; 83540; 85025; 85045; 85379

== ENCOUNTER → 2025-01-09 08:47 | Outpatient (REF) | payer OTHER, SELFPAY ==
--- NOTE | 2025-01-09 08:51 | CA_ITS ---
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 The calculated ejection fraction is 60% by biplane method. - There is mild calcification of the aortic valve. - There is mild tricuspid valve regurgitation. - There is mild dilatation of the ascending aorta measuring 4.30 cm. Findings Left Ventricle Normal left ventricular cavity size. There is mildly increased left ventricular wall thickness. The left ventricular systolic function is normal. The calculated ejection fraction is 60% by biplane method. There is no evidence of regional wall motion abnormalities. Diastolic function is normal for age. Right Ventricle Mildly increased right ventricular cavity size. There is normal right ventricular systolic function. Atria The left atrium is mildly dilated. The right atrium is moderately dilated. Aortic Valve There is a normal trileaflet aortic valve. There is mild calcification of the aortic valve. There is no aortic valve stenosis. There is no aortic valve regurgitation. Mitral Valve The mitral valve appears normal. There is trace mitral valve regurgitation. There is no mitral valve stenosis. Pulmonic Valve The pulmonic valve is likely normal. Tricuspid Valve There is mild tricuspid valve regurgitation. There is no evidence of pulmonary hypertension. Great Vessels There is mild dilatation of the ascending aorta measuring 4.30 cm. Venous The inferior vena cava is normal in size and collapses greater than 50% with inspiration. Pericardium/Pleural There is no evidence of pericardial effusion. Prior Study Comparison No prior study available for comparison. Measurements 2D Linear Measurements IVSd: 1.22 0.6-0.9/0.6-1.0 cm LVIDd: 4.70 3.9-5.3/4.2-5.9 cm LVIDd Index: 2.57 2.4-3.2/2.2-3.1 cm/m2 LVIDs: 3.00 2.0-3.6 cm LVPWd: 1.21 0.7-1.1 cm Ao Root: 3.60 2.1-3.5 cm LA Diam: 3.90 2.7-3.8/3.0-4.0 cm LAIDs Index: 2.13 1.5-2.3 cm/m2 LV Mass: 268.99 67-162/88-224 g LV Mass Index: 146.99 43-95/49-115 g/m2 LVOT Diam: 2.30 3.0+(-)1.3 cm 2D Systolic Function EF 4C: 59.20 >55% EF 2C: 60.40 >55% EF BiP: 59.50 >55% Mitral Valve MV Pk E: 0.96 MV PK A: 0.94 MV Decel Time: 182.00 E/A: 1.00 E'Lateral: 7.29 E'Medial: 8.38 E/E' Med: 11.40 E/E' Lat: 13.10 PHT: 53.00 MVA PHT: 4.15 Decel Winkler: 5.25 Aortic Valve AoV Pk Enoc: 1.65 AoV Mn Enoc: 1.12 AoV VTI: 0.35 AoV Pk Grad: 11.00 Aov Mn Grad: 6.00 MAG Cont.VTI: 3.11 LVOT LVOT Pk Enoc: 1.25 LVOT Mn Enoc: 0.81 LVOT VTI: 0.26 LVOT Pk Grad: 6.00 LVOT Mn Grad: 3.00 LVOT Diam: 2.30 LVOT Area: 4.15 Diastolic Function MV Pk E: 0.96 MV Pk A: 0.94 E/A: 1.00 E'Medial: 8.38 E/E' Med: 11.40 E' Laterial: 7.29 E/E' Lat: 13.10 Right Ventricle TAPSE (mm): 32.00 Tricuspid Valve TR Pk Enoc: 2.68 TR Pk Grad: 29.00 RA Press: 3.00 RVSP: 32.00 Great Vessels Aorta Ao Root-2D: 3.60 2.0-3.7 cm Ao Asc: 4.30 2.1-3.4 cm Pulmonary Valve PV Pk Enoc: 1.36 Peak PV Grad: 7.00 Updated in Other Vendor System with Status of Final Brian Masterson MD electronically signed on 01/10/2025 12:56:54 PM with status of Final
== END ==
LOC: HO.CARD 08:47
PROVIDERS: PCP Family Medicine; Visit Provider Family Medicine
DX: R09.02 Hypoxemia (principal)
CPT/HCPCS: 93306

== ENCOUNTER → 2025-01-09 08:51 | Outpatient (BNV) | payer OTHER, SELFPAY | PROVIDERS: PCP Family Medicine; Visit Provider Internal Medicine | DX: I51.7 Cardiomegaly (principal); I35.8 Other nonrheumatic aortic valve disorders; I36.1 Nonrheumatic tricuspid (valve) insufficiency; I77.810 Thoracic aortic ectasia | CPT/HCPCS: 93306 ==

== ENCOUNTER 2025-01-13 11:46 | Outpatient (AMB) | payer OTHER, SELFPAY ==
--- NOTE | 2025-01-13 11:50 | MHC.PC.OV ---
Vital Signs 01/13/25 11:56 Height 5 ft 6 in Weight 161 lb BMI 26.0 BP 130/78 Blood Pressure Location Lt brachial Position Sitting Respiration 16 Pulse 86 Pulse Source Pulse Oximeter Temp 97.9 F Temp Source Temporal Artery Scan Pulse Oximetry (%) 96 Oxygen Delivery Method Room Air Intake Visit Reasons: f/u echocardiogram Intake Note: Logan presents in the office today to go over his echocardiogram results. Patient is scheduled for surgery on his cervical spine on 01/15/2025. Allergies No Known Allergies Allergy (Verified 01/13/25 11:52) Medication List - Last Reconciled 01/13/25 by Cuba Bell MD albuterol sulfate 90 mcg/actuation (Ventolin HFA) 1 puff inhalation Q4-6H 30 days amlodipine 5 mg PO DAILY budesonide 180 mcg/actuation (Pulmicort Flexhaler) 2 inhalations inhalation BID 30 days bupropion HCl XL 300 mg PO QAM 30 days folic acid 1 mg PO DAILY losartan 50 mg PO DAILY 90 days mecobalamin (vitamin B12) 1,000 mcg PO DAILY 90 days metoprolol succinate ER 25 mg PO DAILY 90 days psyllium seed (sugar) (Metamucil (sugar) oral powder) 1 tbsp PO DAILY PRN tiotropium bromide (Spiriva with HandiHaler) 1 cap inhalation DAILY Tobacco use date assessed: 01/13/25 Fall risk assessment: 1 Fall in past year Last assessed Fall Risk: 01/13/25 Dental Screening Dental Screen Date: 01/13/25 Did you have a dental visit in the last 12 months?: No Did you have a dental problem in the last 6 months where you did not have access to dental care?: No Was dental information given to patient?: Patient declined HPI f/u echocardiogram HPI Details 64 y/o male presents to f/u hypoxia, COPD. History of COPD and mild to moderate anemia presents for follow-up after C-spine surgery was canceled due hypoxia. His hypoxia appears to be intermittent. Echocardiogram 01/09/25: Conclusions: - The left ventricular systolic function is normal. The calculated ejection fraction is 60% by biplane method. - There is mild calcification of the aortic valve. - There is mild tricuspid valve regurgitation. - There is mild dilatation of the ascending aorta measuring 4.30 cm. [facility] Medical History Constipation Numbness History of blood transfusion (~2023) Numbness and tingling in right hand Anal polyp Nicotine dependence, cigarettes, uncomplicated Positive ANDERS (antinuclear antibody) Polyarthralgia Mild recurrent major depression CORNEJO (dyspnea on exertion) Bilateral leg paresthesia Paresthesias in right hand Right hand pain Proximal leg weakness Lumbar pain with radiation down both legs Bilateral hip pain Alcohol use disorder, mild, in early remission, abuse RADHA (iron deficiency anemia) Recurrent epistaxis COPD (chronic obstructive pulmonary disease) Hypertension, essential, benign Surgical History Hx of colonoscopy (08/2024) History of esophagogastroduodenoscopy (EGD) (08/2024) Hx of surgical procedure (09/19/24) H/O eye surgery History of ankle surgery Family History Mother Heart disease Breast cancer Father Stroke Deep vein thrombosis Paternal Grandfather Stroke Brother Lung cancer Brother Tumor cells, malignant Social History (Updated 01/13/25 @ 11:55 by Kina King MA) Household Members: None Housing: Apartment Housing Other:: rents Are you a primary critical care registered nurse to a significant other at home: No Do you presently have visiting nurse or other home services: No Alcohol intake: current Alcohol intake frequency: a few times a week Comment: medicated Patient Tobacco Use Status: Current everyday Tobacco user Tobacco use type: Cigarette Cigarettes Per Day: 15 Years Smoked: onset 15yo, 1ppd x 49yrs, now 3/4 ppd - 45pyh e-Cigarette/Vaping Use: Never Used Second Hand Smoke Exposure: Yes (past ) Substance Use Type: Marijuana service: No Current occupational status: employed 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 [employer] Current occupational exposures/hazards: Yes (ladder use) Cognitive needs: No Hearing needs: Yes (hearing loss ) Vision needs: Yes (glasses) Questionnaire Thrive Questionnaire Date Thrive assessed: 12/10/24 I am a: Patient What is your living situation today?: I have a steady place to live Within the past 12 months, did the food you bought not last and you didn't have the money to get more?: Never true Within the past 12 months, did you worry whether your food would run out before you got money to buy more?: Never true Do you have trouble paying for medicines?: No Do you have trouble getting transportation to medical appointments?: No Do you have trouble paying your heating and electricity bill?: No Do you have trouble taking care of your child, family member or friend?: No Do you have trouble with day-to-day activities such as bathing, preparing meals, shopping, managing finances, etc.?: No Are you currently unemployed and looking for a job?: No Are you interested in more education?: No Please select the resources that you would like help with: None Currently or been in a relationship where the following occur: No concerns reported THRIVE Score: 0 AUDIT C Alcohol Use Questionnaire (AUDIT-C) 1. How often do you have a drink containing alcohol?: 4 or more times a week 2. How many drinks containing alcohol do you have on a typical day when you are drinking?: 3 or 4 3. How often do you have six or more drinks on one occasion?: Never Total Score: 5 Score Reviewed/Action Taken: Yes STEPHAN-7 AMB Questionnaire STEPHAN-7 Date STEPHAN - 7 assessed: 12/16/24 Source: Developed by Drs. Alexis Alexandra, Josefina Holt, Nolan Galicia and colleagues, with an educational vinod from [employer]. Review of Systems Const Denies chills, Denies fatigue, Denies fever(s), Denies headache(s) and Denies weakness ENT Denies dizziness and Denies headache(s) Card Denies dyspnea Resp Denies cough, Denies dyspnea, Denies wheezing and Denies other (shortness of breath) Musc Denies numbness and Denies tingling Neuro Denies dizziness, Denies headache(s), Denies numbness, Denies tingling and Denies weakness Psych Denies anxiety and Denies depression Endo Denies fatigue Aller/Immun Denies wheezing Physical exam (Primary Care) Vital Signs: Last Vital Signs Temp 97.9 F 01/13/25 11:56 Pulse 86 01/13/25 11:56 Resp 16 01/13/25 11:56 BP 130/78 01/13/25 11:56 Pulse Ox 96 01/13/25 11:56 Oxygen Delivery Method Room Air 01/13/25 11:56 BMI result Body Mass Index 26.0 Tobacco/Smoking Status: Tobacco use Status Tobacco use date assessed 01/13/25 01/13/25 11:59 Patient Tobacco Use Status Current everyday Tobacco 01/13/25 11:55 Tobacco use type Cigarette 01/13/25 11:55 e-Cigarette/Vaping Use Never Used 01/13/25 11:55 Thrive Assessment: Date of Thrive Assessment Date Thrive assessed 12/10/24 01/13/25 11:52 Currently or been in a relationship where the following occur: No concerns reported Const General: well developed; No acute distress Nutritional Appearance: well nourished Orientation/consciousness: patient oriented x3 HENMT Head: Yes normocephalic and Yes atraumatic Eyes General: appearance normal, both eyes and all related structures Pupils: Equal, round and reactive pupils present EOM: EOMs intact bilaterally Resp Effort & Inspection: normal respiratory effort Neuro General: patient oriented x3 and gait normal Cranial nerves: Yes Equal, round and reactive pupils present Psych Affect: normal affect Coding Level of Care Code Est Pt Level 4 (00981) Diagnoses Hypoxia R09.02 Chronic obstructive pulmonary disease, unspecified COPD type J44.9 COPD type: unspecified COPD Smoker F17.200 Cervical radiculopathy at C5 M54.12 Assessment & Plan Assessment & Plan (1) Hypoxia: Code(s): R09.02 - Hypoxemia Category: Medical (2) COPD (chronic obstructive pulmonary disease): Code(s): J44.9 - Chronic obstructive pulmonary disease, unspecified Category: Medical Qualifiers: COPD type: unspecified COPD Qualified Code(s): J44.9 - Chronic obstructive pulmonary disease, unspecified (3) Smoker: Code(s): F17.200 - Nicotine dependence, unspecified, uncomplicated Category: Social Hx (4) Cervical radiculopathy at C5: Code(s): M54.12 - Radiculopathy, cervical region Category: Medical Plan Patient?had?C-spine?surgery?canceled after?episode?of?hypoxia. Patient?has?had?oxygen?saturations?as?low?as?93%?lately?though?it?apparently?had?gone?as?low?as?89% He?has?a?history?of?COPD.??He?is?on?albuterol,?Spiriva?and?more?recently?Pulmicort?is?well. Oxygen?saturation at?last?visits?98%?and?oxygen?saturation?96%?today. Echocardiogram shows?normal?left?ventricular?function?without?significant?valvular?abnormalities. No?other?explanation?for?his?hypoxia. Patient?continues?to?smoke.??Likely?COPD?with some?hypoxia?and?possibly?some?mucus?plugging. Strongly?encouraged?smoking?cessation Continue?inhaled?medications?as?prescribed I?am?referring?him?to?pulmonology?to?further?optimize?is?COPD. Orders: Referrals Pulmonology Referral F17.210 - Nicotine dependence, cigarettes, uncomplicated, J44.9 - Chronic obstructive pulmonary disease, unspecified, R09.02 - Hypoxemia
[2025-01-13 11:56] VITALS: BP 130/78; PULSE 86; RESP 16; TEMP 36.6; O2SAT 96; BMI 26.0
== END 2025-01-13 14:05 | disposition home or self-care (01) ==
LOC: HO.HMCFM 11:47
PROVIDERS: PCP Family Medicine; Visit Provider Family Medicine
DX: R09.02 Hypoxemia (principal); J44.9 Chronic obstructive pulmonary disease, unspecified; F17.200 Nicotine dependence, unspecified, uncomplicated; M54.12 Radiculopathy, cervical region

== ENCOUNTER → 2025-01-13 11:46 | Outpatient (BNVA) | payer OTHER, SELFPAY | PROVIDERS: PCP Family Medicine; Visit Provider Family Medicine | DX: R09.02 Hypoxemia (principal); J44.9 Chronic obstructive pulmonary disease, unspecified; M54.12 Radiculopathy, cervical region; F17.210 Nicotine dependence, cigarettes, uncomplicated | CPT/HCPCS: 99212 ==